=== PATIENT | female | born 1950 | race African-American/Black ===

== ENCOUNTER 2019-04-04 03:52 | Inpatient (IN) | payer MEDICARE, MEDICAID ==
[~2019-04-04] VITALS: Ht 170.2 cm; Wt 126.6 kg
[2019-04-04 12:00] VITALS: BP 163/80
--- NOTE | 2019-04-04 12:30 | NUR ---
NURSE NOTES: Received report from Shila IVY /[facility], pt transfered from [facility], awake, A/O x 4, calm and cooperative. VS stable, pain 10/10, Adam LE. wounds on adm, Adam heels, stage III left inner thigh, healed wound x 2 on left leg, pt seen by wound nurse, dressing on. IV on adm, right wrist hep lock. tolerating diet well, no N/V. call light within reach, bed in low position, bed alarm on, fall precaution maintained. will continue to monitor.
[2019-04-04] MEDS ORDERED: Ketorolac 30mg Inj IV PRN (13:00)
[2019-04-04] MEDS ORDERED: Nitroglycerin Subl 0.4mg tab SL PRN (13:00)
[2019-04-04] MEDS ORDERED: Albuterol/Ipratropium 3ml neb HHN PRN (13:00)
[2019-04-04] MEDS ORDERED: Miralax 17gm pkt ORAL PRN (13:00)
[2019-04-04] MEDS ORDERED: clonazePAM 0.5mg tab ORAL PRN (13:45)
[2019-04-04 13:59] LABS: ALANINE AMINOTRANSFERASE 9 U/L (12-78); ALBUMIN 2.9 G/DL (3.4-5.0); ALBUMIN/GLOBULIN RATIO 0.7 (1.0-2.7); ALKALINE PHOSPHATASE 69 U/L (46-116); ANION GAP 6 mmol/L (5-15); ASPARTATE AMINO TRANSFERASE 14 U/L (15-37); BILIRUBIN,TOTAL 0.5 MG/DL (0.2-1.0); BLOOD UREA NITROGEN 19 mg/dL (7-18); CALCIUM 9.1 MG/DL (8.5-10.1); CARBON DIOXIDE 29 MMOL/L (21-32); CHLORIDE 106 MMOL/L (98-107); CREATININE 1.2 MG/DL (0.55-1.30); SODIUM 141 MMOL/L (136-145)
--- NOTE | 2019-04-04 14:15 | Consultation ---
History of Present Illness General Date patient seen: Apr 04, 2019 Time patient seen: 12:45 Chief Complaint: B/L foot pain. Referring physician: Dr. Limon Present Illness HPI pt seen bedside for B/L Heel pain, L > R. Pt states she was transferred from [place]. Relates moderate pain to B/L L/E, unsure of how long she has been in pain. Denies any recent constitutional symptoms. Allergies: Coded Allergies: SULFA (SULFONAMIDE ANTIBIOTICS) (Verified Allergy, Mild, 04/04/19) Patient History Healthcare decision maker Resuscitation status Advanced Directive on File Physical Exam Last 24 Hour Vital Signs Date Time Temp Pulse Resp B/P (MAP) Pulse Ox O2 Delivery O2 Flow Rate FiO2 04/04/19 13:37 163/80 04/04/19 12:08 Room Air 04/04/19 12:00 97.7 86 18 163/80 (107) 100 Laboratory Tests Test 04/04/19 13:25 Sodium Level 141 MMOL/L (136-145) Potassium Level 4.0 MMOL/L (3.5-5.1) Chloride Level 106 MMOL/L (98-107) Carbon Dioxide Level 29 MMOL/L (21-32) Anion Gap 6 mmol/L (5-15) Blood Urea Nitrogen 19 mg/dL (7-18) H Creatinine 1.2 MG/DL (0.55-1.30) Estimat Glomerular Filtration Rate 54.2 mL/min (>60) Glucose Level 113 MG/DL (74-106) H Calcium Level 9.1 MG/DL (8.5-10.1) Total Bilirubin 0.5 MG/DL (0.2-1.0) Aspartate Amino Transf (AST/SGOT) 14 U/L (15-37) L Alanine Aminotransferase (ALT/SGPT) 9 U/L (12-78) L Alkaline Phosphatase 69 U/L (46-116) Total Protein 6.9 G/DL (6.4-8.2) Albumin 2.9 G/DL (3.4-5.0) L Globulin 4.0 g/dL Albumin/Globulin Ratio 0.7 (1.0-2.7) L Height (Feet): 5 Height (Inches): 7.00 Weight (Pounds): 280 Medications Current Medications Medications (Trade) Dose Ordered Sig/Isak Route PRN Reason Start Time Stop Time Status Last Admin Dose Admin Acetaminophen (Tylenol) 650 mg Q4H PRN ORAL Mild Pain (Pain Scale 1-3) 04/04/19 12:45 05/04/19 12:44 Acetaminophen (Tylenol) 650 mg Q4H PRN ORAL fever 04/04/19 13:00 05/04/19 12:59 Albuterol/ Ipratropium (Albuterol/ Ipratropium) 3 ml Q4H PRN HHN Shortness of Breath 04/04/19 13:00 04/09/19 12:59 Amlodipine Besylate (Norvasc) 10 mg DAILY ORAL 04/05/19 09:00 05/05/19 08:59 UNV Clonazepam (KlonoPIN) 0.5 mg DAILY PRN ORAL For Anxiety 04/04/19 13:45 04/11/19 13:44 UNV Clonidine HCl (Catapres Tab) 0.1 mg DAILY ORAL 04/05/19 09:00 05/05/19 08:59 UNV Clonidine HCl (Catapres Tab) 0.1 mg Q4H PRN ORAL sbp more than 160 04/04/19 13:00 05/04/19 12:59 04/04/19 13:37 Dextrose (Dextrose 50%) 25 ml Q30M PRN IV Hypoglycemia 04/04/19 13:00 05/04/19 12:59 Dextrose (Dextrose 50%) 50 ml Q30M PRN IV Hypoglycemia 04/04/19 13:00 05/04/19 12:59 Diphenhydramine HCl (Benadryl) 25 mg Q6H PRN ORAL Itching/Pruritis 04/04/19 12:45 05/04/19 12:44 Heparin Sodium (Porcine) (Heparin 5000 units/ml) 5,000 units EVERY 12 HOURS SUBQ 04/04/19 21:00 05/04/19 20:59 UNV Insulin Aspart (NovoLOG) BEFORE MEALS AND HS SUBQ 04/04/19 16:30 05/04/19 16:29 Ketorolac Tromethamine (Toradol 30mg) 30 mg Q6H PRN IV moderate pain 4-6 04/04/19 13:00 04/09/19 12:59 Losartan Potassium (Cozaar) 50 mg DAILY ORAL 04/05/19 09:00 05/05/19 08:59 UNV Metformin HCl (Glucophage) 500 mg TWICE A DAY ORAL 04/04/19 18:00 05/04/19 17:59 UNV Morphine Sulfate (Morphine Sulfate) 2 mg Q4H PRN IVP severe pain 7-10 04/04/19 13:00 04/11/19 12:59 Nitroglycerin (Ntg) 0.4 mg Q5M X 3 DOSES PRN SL Prn Chest Pain 04/04/19 13:00 05/04/19 12:59 Ondansetron HCl (Zofran) 4 mg Q6H PRN IVP Nausea & Vomiting 04/04/19 13:00 05/04/19 12:59 Oxycodone/ Acetaminophen (Percocet 10/325) 1 tab Q4H PRN ORAL pain 4-7 04/04/19 13:00 04/11/19 12:59 04/04/19 13:37 Pantoprazole (Protonix) 40 mg DAILY ORAL 04/05/19 09:00 05/05/19 08:59 Piperacillin Sod/ Tazobactam Sod 3.375 gm/Sodium Chloride 110 ml @ 27.5 mls/hr EVERY 8 HOURS IVPB 04/04/19 14:00 04/09/19 13:59 UNV Polyethylene Glycol (Miralax) 17 gm HSPRN PRN ORAL Constipation 04/04/19 13:00 05/04/19 12:59 Sodium Chloride 1,000 ml @ 100 mls/hr Q10H IVLG 04/04/19 12:47 05/04/19 12:46 04/04/19 12:47 Temazepam (Restoril) 15 mg HSPRN PRN ORAL Insomnia 04/04/19 13:00 04/11/19 12:59 Vancomycin HCl (Vanco rx to dose) 1 ea DAILY PRN MISC Per rx protocol 04/04/19 13:00 05/04/19 12:59 UNV Objective Narrative B/L Focused Exam: Derm: Right foot: Posterior plantar heel DTI is noted. No other open wounds are noted. (-) purulent drainage. (+) edema and erythema Left foot: Posterior plantar heel DTI is noted. No other open wounds are noted. (-) purulent drainage. (+) edema and erythema Vasc: +1/4 DP/PT pulses, HOSPITAL CODER < 3 seconds Neuro: SILT intact MSK: ROM/MS deferred secondary to pain. Assessment/Plan Assessment/Plan: : B/L DTI heel. Obesity B/L edema P: - Pt seen and evaluated. - Discuss findings with patient. - Rec off-loading measures to B/L L/E with pravalon boot and ABD pad at heel. - Betadine to B/L L/E heels daily. - Order MRI to B/L L/E R/O Deep abscess or ST infection - Cont Tx per specialists. - Podiatry will cont to monitor. Ralph Saenz DPM Apr 04, 2019 14:15
--- NOTE | 2019-04-04 14:20 | Consultation ---
History of Present Illness General Referring physician: Dr. Limon Present Illness Allergies: Coded Allergies: SULFA (SULFONAMIDE ANTIBIOTICS) (Verified Allergy, Mild, 04/04/19) Patient History Healthcare decision maker Resuscitation status Advanced Directive on File Physical Exam Last 24 Hour Vital Signs Date Time Temp Pulse Resp B/P (MAP) Pulse Ox O2 Delivery O2 Flow Rate FiO2 04/04/19 13:37 163/80 04/04/19 12:08 Room Air 04/04/19 12:00 97.7 86 18 163/80 (107) 100 Laboratory Tests Test 04/04/19 13:25 Sodium Level 141 MMOL/L (136-145) Potassium Level 4.0 MMOL/L (3.5-5.1) Chloride Level 106 MMOL/L (98-107) Carbon Dioxide Level 29 MMOL/L (21-32) Anion Gap 6 mmol/L (5-15) Blood Urea Nitrogen 19 mg/dL (7-18) H Creatinine 1.2 MG/DL (0.55-1.30) Estimat Glomerular Filtration Rate 54.2 mL/min (>60) Glucose Level 113 MG/DL (74-106) H Calcium Level 9.1 MG/DL (8.5-10.1) Total Bilirubin 0.5 MG/DL (0.2-1.0) Aspartate Amino Transf (AST/SGOT) 14 U/L (15-37) L Alanine Aminotransferase (ALT/SGPT) 9 U/L (12-78) L Alkaline Phosphatase 69 U/L (46-116) Total Protein 6.9 G/DL (6.4-8.2) Albumin 2.9 G/DL (3.4-5.0) L Globulin 4.0 g/dL Albumin/Globulin Ratio 0.7 (1.0-2.7) L Height (Feet): 5 Height (Inches): 7.00 Weight (Pounds): 280 Medications Current Medications Medications (Trade) Dose Ordered Sig/Isak Route PRN Reason Start Time Stop Time Status Last Admin Dose Admin Acetaminophen (Tylenol) 650 mg Q4H PRN ORAL Mild Pain (Pain Scale 1-3) 04/04/19 12:45 05/04/19 12:44 Acetaminophen (Tylenol) 650 mg Q4H PRN ORAL fever 04/04/19 13:00 05/04/19 12:59 Albuterol/ Ipratropium (Albuterol/ Ipratropium) 3 ml Q4H PRN HHN Shortness of Breath 04/04/19 13:00 04/09/19 12:59 Amlodipine Besylate (Norvasc) 10 mg DAILY ORAL 04/05/19 09:00 05/05/19 08:59 Clonazepam (KlonoPIN) 0.5 mg DAILYPRN PRN ORAL For Anxiety 04/04/19 13:45 04/11/19 13:44 Clonidine HCl (Catapres Tab) 0.1 mg Q4H PRN ORAL sbp more than 160 04/04/19 13:00 05/04/19 12:59 04/04/19 13:37 Clonidine HCl (Catapres Tab) 0.1 mg QHS ORAL 04/05/19 21:00 05/05/19 20:59 Dextrose (Dextrose 50%) 25 ml Q30M PRN IV Hypoglycemia 04/04/19 13:00 05/04/19 12:59 Dextrose (Dextrose 50%) 50 ml Q30M PRN IV Hypoglycemia 04/04/19 13:00 05/04/19 12:59 Diphenhydramine HCl (Benadryl) 25 mg Q6H PRN ORAL Itching/Pruritis 04/04/19 12:45 05/04/19 12:44 Heparin Sodium (Porcine) (Heparin 5000 units/ml) 5,000 units EVERY 12 HOURS SUBQ 04/04/19 21:00 05/04/19 20:59 UNV Insulin Aspart (NovoLOG) BEFORE MEALS AND HS SUBQ 04/04/19 16:30 05/04/19 16:29 Ketorolac Tromethamine (Toradol 30mg) 30 mg Q6H PRN IV moderate pain 4-6 04/04/19 13:00 04/09/19 12:59 Losartan Potassium (Cozaar) 50 mg DAILY ORAL 04/05/19 09:00 05/05/19 08:59 Metformin HCl (Glucophage) 500 mg TWICE A DAY ORAL 04/04/19 18:00 05/04/19 17:59 Morphine Sulfate (Morphine Sulfate) 2 mg Q4H PRN IVP severe pain 7-10 04/04/19 13:00 04/11/19 12:59 Nitroglycerin (Ntg) 0.4 mg Q5M X 3 DOSES PRN SL Prn Chest Pain 04/04/19 13:00 05/04/19 12:59 Ondansetron HCl (Zofran) 4 mg Q6H PRN IVP Nausea & Vomiting 04/04/19 13:00 05/04/19 12:59 Oxycodone/ Acetaminophen (Percocet 10/325) 1 tab Q4H PRN ORAL pain 4-7 04/04/19 13:00 04/11/19 12:59 04/04/19 13:37 Pantoprazole (Protonix) 40 mg DAILY ORAL 04/05/19 09:00 05/05/19 08:59 Piperacillin Sod/ Tazobactam Sod 3.375 gm/Sodium Chloride 110 ml @ 27.5 mls/hr EVERY 8 HOURS IVPB 04/04/19 15:00 04/09/19 14:59 Polyethylene Glycol (Miralax) 17 gm HSPRN PRN ORAL Constipation 04/04/19 13:00 05/04/19 12:59 Sodium Chloride 1,000 ml @ 100 mls/hr Q10H IVLG 04/04/19 12:47 05/04/19 12:46 04/04/19 12:47 Temazepam (Restoril) 15 mg HSPRN PRN ORAL Insomnia 04/04/19 13:00 04/11/19 12:59 Vancomycin HCl (Vanco rx to dose) 1 ea DAILY PRN MISC Per rx protocol 04/04/19 13:00 05/04/19 12:59 Vancomycin HCl 1.75 gm/Dextrose 550 ml @ 275 mls/hr ONCE ONCE IVPB 04/04/19 19:00 04/04/19 20:59 Assessment/Plan Problem List: (1) Diabetic foot ulcer ICD Codes: E11.621 - Type 2 diabetes mellitus with foot ulcer; L97.509 - Non- pressure chronic ulcer of other part of unspecified foot with unspecified severity SNOMED: 66874839, 397363494 (2) Elephantiasis ICD Codes: I89.0 - Lymphedema, not elsewhere classified SNOMED: 490874920 (3) Severe anemia ICD Codes: D64.9 - Anemia, unspecified SNOMED: 542134681 (4) Diabetes mellitus ICD Codes: E11.9 - Type 2 diabetes mellitus without complications SNOMED: 40974680 (5) Morbid obesity with BMI of 40.0-44.9, adult ICD Codes: E66.01 - Morbid (severe) obesity due to excess calories; Z68.41 - Body mass index (BMI) 40.0-44.9, adult SNOMED: 133580699, 198431019, [id number] Mine Olguin MD Apr 04, 2019 14:20
--- NOTE | 2019-04-04 15:05 | Diagnostic Imaging Report ---
Indication: Cough Comparison: None A single view chest radiograph was obtained. Findings: No definite infiltrate or pulmonary vascular congestion identified. The heart is enlarged. The aorta is mildly enlarged consistent with atherosclerotic vascular disease. The bones are osteopenic. Impression: No acute disease
--- NOTE | 2019-04-04 15:06 | Diagnostic Imaging Report ---
Indication: Foot pain Comparison: None Findings: 2 views of the left foot were obtained. No fracture or malalignment appreciated. There is soft tissue swelling present. Degenerative changes of the ankle and portions of the midfoot demonstrated. Joint space narrowing and osteophytes. Prominent plantar calcaneal spur noted. IMPRESSION: Soft tissue swelling. No acute injury identified. Osteoarthritis
--- NOTE | 2019-04-04 15:07 | Diagnostic Imaging Report ---
Indication: Foot Pain Comparison: None Findings: 3 views of the right foot were obtained. No acute fracture is identified. The bones are osteopenic. Osteoarthritis demonstrated within the ankle and hindfoot prominent plantar calcaneal spur noted. Generalized soft tissue swelling is present nonspecific in nature. IMPRESSION: No acute fracture
--- NOTE | 2019-04-04 16:01 | NUR ---
MRI done only Left foot, pt refused right foot due to pain, will try tomorrow per pt request.
[2019-04-04] MEDS: Piperacillin/Tazobactam 3.375 GM in NS 110 ML IVPB SCH ×2 (16:20→22:00)
[2019-04-04 16:30] VITALS: BP 159/72
[2019-04-04] MEDS: NovoLOG Insulin Flexpen SUBQ SCH ×2 (16:44→20:33)
--- NOTE | 2019-04-04 17:00 | History and Physical Report ---
DATE OF ADMISSION: 04/04/2019 CHIEF COMPLAINT: The patient is a 68-year-old female who presents with a chief complaint of bilateral foot pain. HISTORY OF PRESENT ILLNESS: Began few days prior to admission, the patient presented to [facility] emergency room. The patient was complaining of pain in both feet and the legs. The patient has a history of diabetes. The patient was discharged home. The patient returned to [facility] complaining of bilateral heel pain and leg pain. The patient was transferred to [facility] for insurance purposes. The patient was admitted with chief complaint of left diabetic foot ulcer. REVIEW OF SYSTEMS: CONSTITUTIONAL: The patient denies weight loss or weight gain. The patient denies fevers or chills. HEENT: The patient denies ear or throat pain. The patient denies headache. CARDIOVASCULAR: The patient denies palpitations or chest pain. CHEST: The patient denies wheeze or shortness of breath. ABDOMEN: The patient denies nausea, vomiting, diarrhea, or constipation. GENITOURINARY: The patient denies dysuria or increased frequency of urination. NEUROMUSCULAR: The patient complains of bilateral heel pain as above. The patient denies seizures or generalized weakness. PAST MEDICAL HISTORY: Significant for: 1. Type 2 diabetes. 2. Hypertension. PAST SURGICAL HISTORY: The patient denies. CURRENT MEDICATIONS: The patient denies. ALLERGIES: Sulfa. SOCIAL HISTORY: The patient is a and lives alone. The patient denies tobacco or alcohol use. PHYSICAL EXAMINATION: VITAL SIGNS: Temperature 97.9 degrees Fahrenheit, pulse 94, blood pressure 146/58, respirations 16. GENERAL: The patient is well-developed and well-nourished obese female, in no apparent distress. HEENT: Eyes, pupils are equal and responsive to light and accommodation. Extraocular movements are intact. NECK: Supple without lymphadenopathy. CHEST: Lungs are clear to auscultation bilaterally without wheezes or rales. CARDIOVASCULAR: Regular rate. S1 and S2 normal without murmurs, rubs, or gallops. ABDOMEN: Soft, nontender, nondistended. Positive bowel sounds. No evidence of hepatosplenomegaly. Currently, no rebound or guarding noted. EXTREMITIES: Negative for clubbing, cyanosis, or edema. RECTAL/GENITAL: Not performed. NEUROLOGIC: Cranial nerves II through XII are grossly intact without focal deficits. Motor strength is 5/5 bilaterally. Deep tendon reflexes are 2+ plantar. LABORATORY STUDIES: WBC 12.5, hemoglobin 11.6, hematocrit , platelets 332,000. Sodium 141, potassium 4.2, chloride 102, CO2 25, BUN 17, creatinine , glucose 139. Troponin 0.02. BNP elevated at 401. ASSESSMENT: This is a 68-year-old female. 1. Diabetic left heel ulcer. 2. Diabetes type 2. 3. Hypertension. TREATMENT: 1. Left diabetic foot ulcer. A Podiatry consultation has been obtained with Dr. Hoyt. We will follow recommendations of Podiatry. An x-ray of the left foot is pending to rule out acute osteomyelitis. 2. Diabetes type 2. NovoLog sliding scale has been instituted. 3. Hypertension. The patient has been started empirically on lisinopril. Milan Limon M.D. DR: Car JOB#: [id number] CC:
[2019-04-04 17:47] LABS: BASOPHILS % (AUTO) 0.9 % (0.0-2.0); EOSINOPHILS % (AUTO) 2.4 % (0.0-3.0); HEMATOCRIT 28.2 % (37.0-47.0); HEMOGLOBIN 9.2 G/DL (12.0-16.0); LYMPHOCYTES % (AUTO) 17.6 % (20.0-45.0); MEAN CORPUSCULAR VOLUME 79 FL (80-99); MONOCYTES % (AUTO) 3.5 % (1.0-10.0); NEUTROPHILS % (AUTO) 75.7 % (45.0-75.0); PLATELET COUNT 224 K/UL (150-450); RED BLOOD COUNT 3.58 M/UL (4.20-5.40); RED CELL DISTRIBUTION WIDTH 12.1 % (11.6-14.8); WHITE BLOOD COUNT 9.5 K/UL (4.8-10.8)
[2019-04-04] MEDS: metFORMIN 500mg tab ORAL SCH (17:55)
[2019-04-04 18:05] LABS: ALANINE AMINOTRANSFERASE 14 U/L (12-78); ALBUMIN 2.8 G/DL (3.4-5.0); ALBUMIN/GLOBULIN RATIO 0.8 (1.0-2.7); ALKALINE PHOSPHATASE 68 U/L (46-116); ANION GAP 6 mmol/L (5-15); ASPARTATE AMINO TRANSFERASE 13 U/L (15-37); BILIRUBIN,TOTAL 0.4 MG/DL (0.2-1.0); BLOOD UREA NITROGEN 19 mg/dL (7-18); CALCIUM 8.9 MG/DL (8.5-10.1); CARBON DIOXIDE 32 MMOL/L (21-32); CHLORIDE 107 MMOL/L (98-107); CREATININE 1.3 MG/DL (0.55-1.30); SODIUM 144 MMOL/L (136-145)
[2019-04-04] MEDS ORDERED: Vancomycin 1750mg/D5W 550ml IVPB ONE ×2 (19:00)
--- NOTE | 2019-04-04 19:39 | NUR ---
NURSE NOTES: Received patient in bed. A/O x4. Patient has some leg pain. Pain medication offered and states she will request a little later. IV site in the right wrist noted running zosyn, no swelling or redness. Respirations even and unlabored.
[2019-04-04 20:00] VITALS: BP 164/87
[2019-04-04] MEDS: Heparin 5000 units/ml inj SUBQ SCH (20:29)
[2019-04-04] MEDS ORDERED: Heparin 5000 units/ml inj SUBQ SCH (21:00)
--- NOTE | 2019-04-04 22:00 | NUR ---
NURSE NOTES: Patient voided in the commode but also had a bowel movement. Unable to collect clean catch urine. Will attempt another time.
[2019-04-05] VITALS: BP 151/74
[2019-04-05 04:00] VITALS: BP 154/82
[2019-04-05] MEDS: Piperacillin/Tazobactam 3.375 GM in NS 110 ML IVPB SCH ×3 (06:00→22:00)
[2019-04-05] MEDS: NovoLOG Insulin Flexpen SUBQ SCH ×5 (06:20→21:00)
--- NOTE | 2019-04-05 06:20 | NUR ---
NURSE NOTES: Multiple IVs attempted during this shift without success. IV finder used. Dr. Sue ordered PIV of the legs. If unable to obtain PIV then insert PICC line.
[2019-04-05] MEDS ORDERED: Lidocaine 1% Plain 30 ml INJ SCH (07:00)
[2019-04-05] MEDS ORDERED: Heparin1,000 units/500ml Premix(Conc:2 units/ml) IV SCH (07:00)
[2019-04-05] MEDS: Vancomycin 1gm/D5W 275ml IVPB SCH ×4 (07:00→19:00)
--- NOTE | 2019-04-05 07:17 | NUR ---
HAND-OFF: Report given to Rubio IVY.
[2019-04-05 07:21] LABS: BASOPHILS % (AUTO) 1.1 % (0.0-2.0); EOSINOPHILS % (AUTO) 4.1 % (0.0-3.0); HEMATOCRIT 28.3 % (37.0-47.0); LYMPHOCYTES % (AUTO) 25.9 % (20.0-45.0); MEAN CORPUSCULAR VOLUME 81 FL (80-99); MONOCYTES % (AUTO) 5.9 % (1.0-10.0); NEUTROPHILS % (AUTO) 63.1 % (45.0-75.0); PLATELET COUNT 229 K/UL (150-450); RED BLOOD COUNT 3.51 M/UL (4.20-5.40); RED CELL DISTRIBUTION WIDTH 13.6 % (11.6-14.8); WHITE BLOOD COUNT 8.6 K/UL (4.8-10.8)
[2019-04-05 07:41] LABS: ALANINE AMINOTRANSFERASE 10 U/L (12-78); ALBUMIN 2.6 G/DL (3.4-5.0); ALBUMIN/GLOBULIN RATIO 0.7 (1.0-2.7); ALKALINE PHOSPHATASE 56 U/L (46-116); ANION GAP 7 mmol/L (5-15); ASPARTATE AMINO TRANSFERASE 12 U/L (15-37); BILIRUBIN,TOTAL 0.3 MG/DL (0.2-1.0); BLOOD UREA NITROGEN 20 mg/dL (7-18); CALCIUM 8.5 MG/DL (8.5-10.1); CARBON DIOXIDE 28 MMOL/L (21-32); CHLORIDE 110 MMOL/L (98-107); CHOLESTEROL 134 MG/DL (< 200); CREATININE 1.2 MG/DL (0.55-1.30); HDL CHOLESTEROL 42 MG/DL (40-60); POTASSIUM 3.9 MMOL/L (3.5-5.1); SODIUM 144 MMOL/L (136-145); TRIGLYCERIDES 58 MG/DL (30-150)
--- NOTE | 2019-04-05 07:45 | NUR ---
NURSE NOTES: Received patient on bed, awake. No IV site, MD aware. Bed in low and locked position, call light in reach. No signs of respiratory distress, patient received pain medication prior to start of shift. Room board updated, will continue to monitor.
[2019-04-05 08:00] VITALS: BP 153/82
[2019-04-05] MEDS: metFORMIN 500mg tab ORAL SCH ×2 (08:31→17:48)
[2019-04-05] MEDS: Losartan 50mg tab ORAL SCH (08:31)
[2019-04-05] MEDS: Heparin 5000 units/ml inj SUBQ SCH ×2 (08:36→20:20)
--- NOTE | 2019-04-05 08:43 | Diagnostic Imaging Report ---
Indication: Left heel wound Technique: Sagittal, coronal, and axial T1 FSE and FSE STIR images of the left hindfoot were obtained Comparison: Plain radiograph of the foot of earlier the same day Findings: A marker lombardi the location of heel ulcer. This demonstrates very slight skin irregularity There is very slight increased STIR signal at the periphery of the calcaneal tuberosity but no definite T1 signal abnormality is demonstrated. There is some 8 increased marrow signal on the STIR images at the lateral peripherally of the talus, again without evidence of abnormal T1 signal. No other marrow signal abnormality is demonstrated.. There is considerable edema of the subcutaneous fat, primarily of the distal leg,, the dorsal ankle and to a lesser extent the heel region. No discrete fluid collection to suggest abscess demonstrated. The large tendons appear intact. Impression: Superficial skin erosion in the region of MRI marker responding to stated clinical history of heel ulcer Faint slightly increased STIR signal in the calcaneal tuberosity, without associated T1 abnormality. Most likely reactive, although very early osteomyelitis cannot be completely ruled out. Faint slightly increased her signal in the talus, likewise without associated T1 abnormality. Most likely reactive, but early osteomyelitis cannot be completely ruled out Extensive edema of the subcutaneous fat, as described. Given stated clinical history, may be on the basis of cellulitis, but could also indicate edema of vasogenic/hemodynamic origin. Correlate with clinical findings
--- NOTE | 2019-04-05 11:10 | NUR ---
PT EVALUATION NOTE Patient seen for initial evaluation, see complete evaluation for details. Patient presents with limited mobility due to BLE pain and generalized weakness. Patient requires min assist for rolling, declined to sit up at EOB due to pain and unable to attempt transfers or ambulation. Patient will benefit from skilled inpatient PT intervention to address strength, balance and safety to improve level of functional mobility. Recommend discharge to ARU/SNF for further rehab for strengthening and mobility training once medially cleared by MD. Patient has 4 wheeled walker, further DME needs to be determined based on patient's progress. Addendum: 04/05/19 at 1155 by RAFIQ IRWIN PT Amended: Links added.
[2019-04-05 12:00] VITALS: BP 131/61
--- NOTE | 2019-04-05 13:46 | NUR ---
NURSE NOTES: Patient back on floor from procedure.
--- NOTE | 2019-04-05 13:52 | NUR ---
MRI RIGHT HEEL COMPLETED.
--- NOTE | 2019-04-05 13:58 | Pulmonology Progress Note ---
Assessment/Plan Problems: (1) Diabetic foot ulcer (2) Elephantiasis (3) Severe anemia (4) Diabetes mellitus (5) Morbid obesity with BMI of 40.0-44.9, adult (6) Cellulitis Assessment/Plan f/u cultures f/u MRI results iv abx anemia w/u sliding scale diabetic diet Subjective Constitutional: Reports: no symptoms HEENT: Repors: no symptoms Allergies: Coded Allergies: SULFA (SULFONAMIDE ANTIBIOTICS) (Verified Allergy, Mild, 04/04/19) Objective Last 24 Hour Vital Signs Date Time Temp Pulse Resp B/P (MAP) Pulse Ox O2 Delivery O2 Flow Rate FiO2 04/05/19 12:00 97.5 78 16 131/61 (84) 98 04/05/19 09:00 Room Air 04/05/19 08:32 99 153/82 04/05/19 08:31 153/82 04/05/19 08:00 96.6 99 21 153/82 (105) 97 04/05/19 04:00 97.7 83 17 154/82 (106) 98 04/05/19 00:00 98.1 87 17 151/74 (99) 98 04/04/19 21:00 Room Air 04/04/19 20:00 98.4 96 18 164/87 (112) 97 04/04/19 16:30 97.9 82 20 159/72 (101) 98 04/04/19 14:07 97.7 Intake and Output 04/04/19 04/05/19 18:59 06:59 Intake Total 240 ml 200 ml Output Total 1 ml Balance 240 ml 199 ml Intake Oral 240 ml 200 ml Output Stool Total 1 ml # Voids 1 General Appearance: WD/WN HEENT: normocephalic, anicteric Respiratory/Chest: chest wall non-tender, lungs clear Breasts: no masses Cardiovascular: normal rate Abdomen: normal bowel sounds, non distended Genitourinary: normal external genitalia Skin: no rash Laboratory Tests 04/04/19 17:10: White Blood Count 9.5, Red Blood Count 3.58L, Hemoglobin 9.2L, Hematocrit 28.2L , Mean Corpuscular Volume 79L, Mean Corpuscular Hemoglobin 25.8L, Mean Corpuscular Hemoglobin Concent 32.7, Red Cell Distribution Width 12.1, Platelet Count 224, Mean Platelet Volume 6.6, Neutrophils (%) (Auto) 75.7H, Lymphocytes ( %) (Auto) 17.6L, Monocytes (%) (Auto) 3.5, Eosinophils (%) (Auto) 2.4, Basophils (%) (Auto) 0.9, Sodium Level 144, Potassium Level 4.0, Chloride Level 107, Carbon Dioxide Level 32, Anion Gap 6, Blood Urea Nitrogen 19H, Creatinine 1.3, Estimat Glomerular Filtration Rate 49.3, Glucose Level 160H, Calcium Level 8.9, Total Bilirubin 0.4, Aspartate Amino Transf (AST/SGOT) 13L, Alanine Aminotransferase (ALT/SGPT) 14, Alkaline Phosphatase 68, Total Protein 6.4, Albumin 2.8L, Globulin 3.6, Albumin/Globulin Ratio 0.8L 04/05/19 07:00: White Blood Count 8.6, Red Blood Count 3.51L, Hemoglobin 9.0L, Hematocrit 28.3L , Mean Corpuscular Volume 81, Mean Corpuscular Hemoglobin 25.5L, Mean Corpuscular Hemoglobin Concent 31.7L, Red Cell Distribution Width 13.6, Platelet Count 229, Mean Platelet Volume 6.6, Neutrophils (%) (Auto) 63.1, Lymphocytes (%) (Auto) 25.9, Monocytes (%) (Auto) 5.9, Eosinophils (%) (Auto) 4.1H, Basophils (%) (Auto) 1.1, Sodium Level 144, Potassium Level 3.9, Chloride Level 110H, Carbon Dioxide Level 28, Anion Gap 7, Blood Urea Nitrogen 20H, Creatinine 1.2, Estimat Glomerular Filtration Rate 54.2, Glucose Level 92, Calcium Level 8.5, Total Bilirubin 0.3, Aspartate Amino Transf (AST/SGOT) 12L, Alanine Aminotransferase (ALT/SGPT) 10L, Alkaline Phosphatase 56, Total Protein 6.3L, Albumin 2.6L, Globulin 3.7, Albumin/Globulin Ratio 0.7L, Hemoglobin A1c 7.2H, Triglycerides Level 58, Cholesterol Level 134, LDL Cholesterol 74, HDL Cholesterol 42, Cholesterol/HDL Ratio 3.2L, Thyroid Stimulating Hormone (TSH) 0.697 Current Medications Medications (Trade) Dose Ordered Sig/Isak Route PRN Reason Start Time Stop Time Status Last Admin Dose Admin Acetaminophen (Tylenol) 650 mg Q4H PRN ORAL Mild Pain (Pain Scale 1-3) 04/04/19 12:45 05/04/19 12:44 Acetaminophen (Tylenol) 650 mg Q4H PRN ORAL fever 04/04/19 13:00 05/04/19 12:59 Albuterol/ Ipratropium (Albuterol/ Ipratropium) 3 ml Q4H PRN HHN Shortness of Breath 04/04/19 13:00 04/09/19 12:59 Amlodipine Besylate (Norvasc) 10 mg DAILY ORAL 04/05/19 09:00 05/05/19 08:59 04/05/19 08:32 Chlorhexidine Gluconate (Autumn-Hex 2%) 1 applic DAILY@2000 TOPIC 04/05/19 20:00 05/05/19 19:59 Clonazepam (KlonoPIN) 0.5 mg DAILYPRN PRN ORAL For Anxiety 04/04/19 13:45 04/11/19 13:44 Clonidine HCl (Catapres Tab) 0.1 mg Q4H PRN ORAL sbp more than 160 04/04/19 13:00 05/04/19 12:59 04/04/19 13:37 Clonidine HCl (Catapres Tab) 0.1 mg QHS ORAL 04/05/19 21:00 05/05/19 20:59 Dextrose (Dextrose 50%) 25 ml Q30M PRN IV Hypoglycemia 04/04/19 13:00 05/04/19 12:59 Dextrose (Dextrose 50%) 50 ml Q30M PRN IV Hypoglycemia 04/04/19 13:00 05/04/19 12:59 Diphenhydramine HCl (Benadryl) 25 mg Q6H PRN ORAL Itching/Pruritis 04/04/19 12:45 05/04/19 12:44 04/05/19 09:51 Heparin Sodium (Porcine) (Heparin 5000 units/ml) 5,000 units EVERY 12 HOURS SUBQ 04/04/19 21:00 05/04/19 20:59 04/05/19 08:36 Insulin Aspart (NovoLOG) BEFORE MEALS AND HS SUBQ 04/04/19 16:30 05/04/19 16:29 04/04/19 20:33 Ketorolac Tromethamine (Toradol 30mg) 30 mg Q6H PRN IV moderate pain 4-6 04/04/19 13:00 04/09/19 12:59 Losartan Potassium (Cozaar) 50 mg DAILY ORAL 04/05/19 09:00 05/05/19 08:59 04/05/19 08:31 Metformin HCl (Glucophage) 500 mg TWICE A DAY ORAL 04/04/19 18:00 05/04/19 17:59 04/05/19 08:31 Morphine Sulfate (Morphine Sulfate) 2 mg Q4H PRN IVP severe pain 7-10 04/04/19 13:00 04/11/19 12:59 Nitroglycerin (Ntg) 0.4 mg Q5M X 3 DOSES PRN SL Prn Chest Pain 04/04/19 13:00 05/04/19 12:59 Ondansetron HCl (Zofran) 4 mg Q6H PRN IVP Nausea & Vomiting 04/04/19 13:00 05/04/19 12:59 Oxycodone/ Acetaminophen (Percocet 10/325) 1 tab Q4H PRN ORAL pain 4-7 04/04/19 13:00 04/11/19 12:59 04/05/19 06:21 Pantoprazole (Protonix) 40 mg DAILY ORAL 04/05/19 09:00 05/05/19 08:59 04/05/19 08:31 Piperacillin Sod/ Tazobactam Sod 3.375 gm/Sodium Chloride 110 ml @ 27.5 mls/hr EVERY 8 HOURS IVPB 04/04/19 15:00 04/09/19 14:59 04/04/19 16:20 Polyethylene Glycol (Miralax) 17 gm HSPRN PRN ORAL Constipation 04/04/19 13:00 05/04/19 12:59 Sodium Chloride 1,000 ml @ 100 mls/hr Q10H IVLG 04/04/19 12:47 05/04/19 12:46 04/04/19 12:47 Temazepam (Restoril) 15 mg HSPRN PRN ORAL Insomnia 04/04/19 13:00 04/11/19 12:59 Vancomycin HCl (Vanco rx to dose) 1 ea DAILY PRN MISC Per rx protocol 04/04/19 13:00 05/04/19 12:59 Vancomycin HCl 1 gm/Dextrose 275 ml @ 183.708 mls/hr Q12H IVPB 04/05/19 07:00 04/10/19 06:59 Mine Olguin MD Apr 05, 2019 13:57
[2019-04-05 16:00] VITALS: BP 145/65
--- NOTE | 2019-04-05 17:55 | Diagnostic Imaging Report ---
Indication: Bruise-like wound on lateral heel Technique: Sagittal, coronal, and axial T1-weighted FSE and FSE STIR images obtained of the hindfoot Comparison: No comparison MRI. Reference made to plain radiograph of 04/04/2017 Findings: MRI marker denotes location of wound lateral to the lateral malleolus. No marrow signal abnormality demonstrated.. There is extensive edema of the subcutaneous fat of the distal leg which is circumferential. No discrete fluid collection to suggest abscess demonstrated. Impression: No evidence of osteomyelitis demonstrated Diffuse edema of the subcutaneous fat, may indicate cellulitis or edema due to hemodynamic causes. No focal fluid collection to suggest abscess
--- NOTE | 2019-04-05 18:15 | Internal Med Progress Note ---
Subjective Date of Service: Apr 05, 2019 Physician Name Milan Limon Attending Physician Clarence Sue MD Current Medications Medications (Trade) Dose Ordered Sig/Isak Route PRN Reason Start Time Stop Time Status Last Admin Dose Admin Acetaminophen (Tylenol) 650 mg Q4H PRN ORAL Mild Pain (Pain Scale 1-3) 04/04/19 12:45 05/04/19 12:44 Acetaminophen (Tylenol) 650 mg Q4H PRN ORAL fever 04/04/19 13:00 05/04/19 12:59 Albuterol/ Ipratropium (Albuterol/ Ipratropium) 3 ml Q4H PRN HHN Shortness of Breath 04/04/19 13:00 04/09/19 12:59 Amlodipine Besylate (Norvasc) 10 mg DAILY ORAL 04/05/19 09:00 05/05/19 08:59 04/05/19 08:32 Chlorhexidine Gluconate (Autumn-Hex 2%) 1 applic DAILY@2000 TOPIC 04/05/19 20:00 05/05/19 19:59 Clonazepam (KlonoPIN) 0.5 mg DAILYPRN PRN ORAL For Anxiety 04/04/19 13:45 04/11/19 13:44 Clonidine HCl (Catapres Tab) 0.1 mg Q4H PRN ORAL sbp more than 160 04/04/19 13:00 05/04/19 12:59 04/04/19 13:37 Clonidine HCl (Catapres Tab) 0.1 mg QHS ORAL 04/05/19 21:00 05/05/19 20:59 Dextrose (Dextrose 50%) 25 ml Q30M PRN IV Hypoglycemia 04/04/19 13:00 05/04/19 12:59 Dextrose (Dextrose 50%) 50 ml Q30M PRN IV Hypoglycemia 04/04/19 13:00 05/04/19 12:59 Diphenhydramine HCl (Benadryl) 25 mg Q6H PRN ORAL Itching/Pruritis 04/04/19 12:45 05/04/19 12:44 04/05/19 09:51 Heparin Sodium (Porcine) (Heparin 5000 units/ml) 5,000 units EVERY 12 HOURS SUBQ 04/04/19 21:00 05/04/19 20:59 04/05/19 08:36 Insulin Aspart (NovoLOG) BEFORE MEALS AND HS SUBQ 04/04/19 16:30 05/04/19 16:29 04/04/19 20:33 Ketorolac Tromethamine (Toradol 30mg) 30 mg Q6H PRN IV moderate pain 4-6 04/04/19 13:00 04/09/19 12:59 Losartan Potassium (Cozaar) 50 mg DAILY ORAL 04/05/19 09:00 05/05/19 08:59 04/05/19 08:31 Metformin HCl (Glucophage) 500 mg TWICE A DAY ORAL 04/04/19 18:00 05/04/19 17:59 04/05/19 17:48 Morphine Sulfate (Morphine Sulfate) 2 mg Q4H PRN IVP severe pain 7-10 04/04/19 13:00 04/11/19 12:59 Nitroglycerin (Ntg) 0.4 mg Q5M X 3 DOSES PRN SL Prn Chest Pain 04/04/19 13:00 05/04/19 12:59 Ondansetron HCl (Zofran) 4 mg Q6H PRN IVP Nausea & Vomiting 04/04/19 13:00 05/04/19 12:59 Oxycodone/ Acetaminophen (Percocet 10/325) 1 tab Q4H PRN ORAL pain 4-7 04/04/19 13:00 04/11/19 12:59 04/05/19 15:32 Pantoprazole (Protonix) 40 mg DAILY ORAL 04/05/19 09:00 05/05/19 08:59 04/05/19 08:31 Piperacillin Sod/ Tazobactam Sod 3.375 gm/Sodium Chloride 110 ml @ 27.5 mls/hr EVERY 8 HOURS IVPB 04/04/19 15:00 04/09/19 14:59 04/04/19 16:20 Polyethylene Glycol (Miralax) 17 gm HSPRN PRN ORAL Constipation 04/04/19 13:00 05/04/19 12:59 Sodium Chloride 1,000 ml @ 100 mls/hr Q10H IVLG 04/04/19 12:47 05/04/19 12:46 04/04/19 12:47 Temazepam (Restoril) 15 mg HSPRN PRN ORAL Insomnia 04/04/19 13:00 04/11/19 12:59 Vancomycin HCl (Vanco rx to dose) 1 ea DAILY PRN MISC Per rx protocol 04/04/19 13:00 05/04/19 12:59 Vancomycin HCl 1 gm/Dextrose 275 ml @ 183.708 mls/hr Q12H IVPB 04/05/19 07:00 04/10/19 06:59 Allergies: Coded Allergies: SULFA (SULFONAMIDE ANTIBIOTICS) (Verified Allergy, Mild, 04/04/19) ROS Limited/Unobtainable: No Constitutional: Reports: no symptoms HEENT: Reports: no symptoms Cardiovascular: Reports: no symptoms Respiratory: Reports: no symptoms Gastrointestinal/Abdominal: Reports: no symptoms Genitourinary: Reports: no symptoms Neurologic/Psychiatric: Reports: no symptoms Subjective 68 YO F admitted with bilateral heel pain. Cover for Int Ivan-Dr Sue Objective Last Vital Signs Date Time Temp Pulse Resp B/P (MAP) Pulse Ox O2 Delivery O2 Flow Rate FiO2 04/05/19 16:00 97.8 92 18 145/65 (91) 100 04/05/19 09:00 Room Air Laboratory Tests Test 04/05/19 07:00 White Blood Count 8.6 K/UL (4.8-10.8) Red Blood Count 3.51 M/UL (4.20-5.40) L Hemoglobin 9.0 G/DL (12.0-16.0) L Hematocrit 28.3 % (37.0-47.0) L Mean Corpuscular Volume 81 FL (80-99) Mean Corpuscular Hemoglobin 25.5 PG (27.0-31.0) L Mean Corpuscular Hemoglobin Concent 31.7 G/DL (32.0-36.0) L Red Cell Distribution Width 13.6 % (11.6-14.8) Platelet Count 229 K/UL (150-450) Mean Platelet Volume 6.6 FL (6.5-10.1) Neutrophils (%) (Auto) 63.1 % (45.0-75.0) Lymphocytes (%) (Auto) 25.9 % (20.0-45.0) Monocytes (%) (Auto) 5.9 % (1.0-10.0) Eosinophils (%) (Auto) 4.1 % (0.0-3.0) H Basophils (%) (Auto) 1.1 % (0.0-2.0) Sodium Level 144 MMOL/L (136-145) Potassium Level 3.9 MMOL/L (3.5-5.1) Chloride Level 110 MMOL/L (98-107) H Carbon Dioxide Level 28 MMOL/L (21-32) Anion Gap 7 mmol/L (5-15) Blood Urea Nitrogen 20 mg/dL (7-18) H Creatinine 1.2 MG/DL (0.55-1.30) Estimat Glomerular Filtration Rate 54.2 mL/min (>60) Glucose Level 92 MG/DL (74-106) Hemoglobin A1c 7.2 % (4.3-6.0) H Calcium Level 8.5 MG/DL (8.5-10.1) Total Bilirubin 0.3 MG/DL (0.2-1.0) Aspartate Amino Transf (AST/SGOT) 12 U/L (15-37) L Alanine Aminotransferase (ALT/SGPT) 10 U/L (12-78) L Alkaline Phosphatase 56 U/L (46-116) Total Protein 6.3 G/DL (6.4-8.2) L Albumin 2.6 G/DL (3.4-5.0) L Globulin 3.7 g/dL Albumin/Globulin Ratio 0.7 (1.0-2.7) L Triglycerides Level 58 MG/DL (30-150) Cholesterol Level 134 MG/DL (< 200) LDL Cholesterol 74 mg/dL (<100) HDL Cholesterol 42 MG/DL (40-60) Cholesterol/HDL Ratio 3.2 (3.3-4.4) L Thyroid Stimulating Hormone (TSH) 0.697 uiU/mL (0.358-3.740) Intake and Output 04/04/19 04/05/19 18:59 06:59 Intake Total 240 ml 200 ml Output Total 1 ml Balance 240 ml 199 ml Intake Oral 240 ml 200 ml Output Stool Total 1 ml # Voids 1 Objective PHYSICAL EXAMINATION: GENERAL: The patient is well-developed and well-nourished obese female, in no apparent distress. HEENT: Eyes, pupils are equal and responsive to light and accommodation. Extraocular movements are intact. NECK: Supple without lymphadenopathy. CHEST: Lungs are clear to auscultation bilaterally without wheezes or rales. CARDIOVASCULAR: Regular rate. S1 and S2 normal without murmurs, rubs, or gallops. ABDOMEN: Soft, nontender, nondistended. Positive bowel sounds. No evidence of hepatosplenomegaly. Currently, no rebound or guarding noted. EXTREMITIES: Negative for clubbing, cyanosis, or edema. RECTAL/GENITAL: Not performed. NEUROLOGIC: Cranial nerves II through XII are grossly intact without focal deficits. Motor strength is 5/5 bilaterally. Deep tendon reflexes are 2+ plantar. Assessment/Plan Assessment/Plan ASSESSMENT: This is a 68-year-old female. 1. Diabetic left heel ulcer. 2. Diabetes type 2. 3. Hypertension. TREATMENT: 1. Left diabetic foot ulcer. A Podiatry consultation has been obtained with Dr. Hoyt. We will follow recommendations of Podiatry. An MRI of the bilateral feet is pending to rule out acute osteomyelitis. 2. Diabetes type 2. NovoLog sliding scale has been instituted. 3. Hypertension. The patient has been started empirically on lisinopril. Milan Limon MD Apr 05, 2019 18:15
--- NOTE | 2019-04-05 19:28 | NUR ---
HAND-OFF: Report given to CATA Yu.
--- NOTE | 2019-04-05 19:30 | NUR ---
NURSE NOTES: Received patient in bed. A/O x4. Patient appears calm and comfortable. On room air and no distress noted. Patient denies pain at this time.
[2019-04-05 20:00] VITALS: BP 130/67
[2019-04-05] MEDS: Dyna-Hex 2% Top Sol 2oz TOPIC SCH (20:00)
[2019-04-06] VITALS: BP 149/72
[2019-04-06 04:00] VITALS: BP 127/85
--- NOTE | 2019-04-06 04:27 | NUR ---
NURSE NOTES: Dressing change done for bilateral heels.
[2019-04-06] MEDS: Piperacillin/Tazobactam 3.375 GM in NS 110 ML IVPB SCH ×2 (06:00→14:05)
[2019-04-06] MEDS: NovoLOG Insulin Flexpen SUBQ SCH ×4 (06:07→22:07)
[2019-04-06 06:30] LABS: APPEARANCE,URINE CLEAR; BILIRUBIN, URINE NEGATIVE (NEGATIVE); GLUCOSE, URINE (UA) NEGATIVE (NEGATIVE); KETONES,URINE NEGATIVE (NEGATIVE); LEUKOCYTE ESTERASE ,URINE 3+ (NEGATIVE); NITRITE,URINE NEGATIVE (NEGATIVE); PH,URINE 5 (4.5-8.0); PROTEIN,URINE 1+ (NEGATIVE); UROBILINOGEN,URINE NORMAL MG/DL (0.0-1.0)
[2019-04-06 06:31] LABS: COLOR,URINE YELLOW
[2019-04-06] MEDS: Vancomycin 1gm/D5W 275ml IVPB SCH ×2 (06:43)
[2019-04-06] MEDS ORDERED: Lidocaine 1% Plain 30 ml INJ ONE (07:00)
[2019-04-06] MEDS ORDERED: Heparin1,000 units/500ml Premix(Conc:2 units/ml) ONE (07:00)
[2019-04-06 07:24] LABS: BASOPHILS % (AUTO) 0.8 % (0.0-2.0); EOSINOPHILS % (AUTO) 3.9 % (0.0-3.0); HEMATOCRIT 27.1 % (37.0-47.0); HEMOGLOBIN 8.5 G/DL (12.0-16.0); LYMPHOCYTES % (AUTO) 32.9 % (20.0-45.0); MEAN CORPUSCULAR VOLUME 81 FL (80-99); MONOCYTES % (AUTO) 6.7 % (1.0-10.0); NEUTROPHILS % (AUTO) 55.7 % (45.0-75.0); PLATELET COUNT 228 K/UL (150-450); RED BLOOD COUNT 3.34 M/UL (4.20-5.40); WHITE BLOOD COUNT 7.8 K/UL (4.8-10.8)
[2019-04-06 07:34] LABS: ALANINE AMINOTRANSFERASE 12 U/L (12-78); ALBUMIN 2.4 G/DL (3.4-5.0); ALBUMIN/GLOBULIN RATIO 0.6 (1.0-2.7); ALKALINE PHOSPHATASE 51 U/L (46-116); ANION GAP 1 mmol/L (5-15); ASPARTATE AMINO TRANSFERASE 13 U/L (15-37); BILIRUBIN,TOTAL 0.3 MG/DL (0.2-1.0); BLOOD UREA NITROGEN 19 mg/dL (7-18); CARBON DIOXIDE 32 MMOL/L (21-32); CHLORIDE 109 MMOL/L (98-107); CREATININE 1.3 MG/DL (0.55-1.30); LACTATE DEHYDROGENASE 133 U/L (81-234); POTASSIUM 4.2 MMOL/L (3.5-5.1); SODIUM 141 MMOL/L (136-145)
[2019-04-06 07:35] LABS: PHOSPHORUS 3.3 MG/DL (2.5-4.9)
--- NOTE | 2019-04-06 07:50 | NUR ---
HAND-OFF: Report given to Lizbeth IVY.
--- NOTE | 2019-04-06 07:51 | NUR ---
NURSE NOTES: Received patient in bed awake. No SOB or acute distress. Wound dressings intact. HOB elevated. Bed locked in lowest position. Call light within reach. Will continue plan of care. For PICC line insertion.
[2019-04-06 08:00] VITALS: BP 154/74
[2019-04-06 08:02] LABS: % IRON SATURATION 18 % (15-50); IRON 31 ug/dL (50-175); TOTAL IRON BINDING CAPACITY 177 ug/dL (250-450)
[2019-04-06] MEDS: Losartan 50mg tab ORAL SCH (08:32)
[2019-04-06] MEDS: metFORMIN 500mg tab ORAL SCH ×2 (08:32→18:11)
[2019-04-06] MEDS: Heparin 5000 units/ml inj SUBQ SCH ×2 (09:00→22:13)
--- NOTE | 2019-04-06 10:52 | NUR ---
NURSE NOTES: Patient brought down for picc line insertion.
--- NOTE | 2019-04-06 11:30 | NUR ---
Physical Therapy Notes: Unable to see pt for PT service this am as pt out for PICC line insertion. Will check back this afternoon, if schedule permits.
--- NOTE | 2019-04-06 11:47 | Pre-Procedure Note/Attestation ---
Pre-Procedure Note/Attestation Complete Prior to Procedure Procedure Narrative: PICC Indications for Procedure Pre-Operative Diagnosis: needs senior living IV access Attestation I attest that I discussed the nature of the procedure; its benefits; risks and complications; and alternatives (and the risks and benefits of such alternatives ), prior to the procedure, with the patient (or the patient's legal sales representative public utilities). I attest that, if there was a reasonable possibility of needing a blood transfusion, the patient (or the patient's legal sales representative public utilities) was given the [facility] standardized written summary, pursuant to the [place] Blood Safety Act ([place] Health and Safety Code # 1645, as amended). I attest that I re-evaluated the patient just prior to the surgery and that there has been no change in the patient's H&P, except as documented below: Rojsa Nj MD Apr 06, 2019 11:47
--- NOTE | 2019-04-06 11:48 | Brief Operative Note ---
Immediate Post Operative Note Operative Note Pre-op Diagnosis: needs ocean transportation intermediary IV access Procedure: PICC Post-op Diagnosis: same as pre-op Surgeon: River Love Anesthesia: local Specimen: none Complications: none Fluids: none Implant(s) used?: No Rojas Love MD Apr 06, 2019 11:48
--- NOTE | 2019-04-06 12:18 | Consultation ---
History of Present Illness General Date patient seen: Apr 06, 2019 Referring physician: Dr. Limon Present Illness HPI 68 y/o F with hx of Dm2, HTN is transferred from [place] to [facility] [place] with b/l heel pain (L>R). Denied f/c, COWAN, CP. Allergies: Coded Allergies: SULFA (SULFONAMIDE ANTIBIOTICS) (Verified Allergy, Mild, 04/04/19) Patient History Healthcare decision maker Resuscitation status Advanced Directive on File Patient History Narrative Pmhx: as above Shx:The patient is a and lives alone. The patient denies tobacco or alcohol use. Fhx: non contributory Physical Exam Physical Exam Narrative GENERAL: The patient is well-developed and well-nourished obese female, in no apparent distress. HEENT: Eyes, pupils are equal and responsive to light and accommodation. Extraocular movements are intact. NECK: Supple without lymphadenopathy. CHEST: Lungs are clear to auscultation bilaterally without wheezes or rales. CARDIOVASCULAR: Regular rate. S1 and S2 normal without murmurs, rubs, or gallops. ABDOMEN: Soft, nontender, nondistended. Positive bowel sounds. No evidence of hepatosplenomegaly. Currently, no rebound or guarding noted. EXTREMITIES: Negative for clubbing, cyanosis, or edema. Last 24 Hour Vital Signs Date Time Temp Pulse Resp B/P (MAP) Pulse Ox O2 Delivery O2 Flow Rate FiO2 04/06/19 08:32 75 154/74 04/06/19 08:32 154/74 04/06/19 08:00 98.1 75 17 154/74 (100) 96 04/06/19 04:00 98.8 80 21 127/85 (99) 96 04/06/19 00:00 98.6 75 19 149/72 (97) 96 04/05/19 21:00 Room Air 04/05/19 20:32 108/57 04/05/19 20:00 98.6 86 18 130/67 (88) 96 04/05/19 16:00 97.8 92 18 145/65 (91) 100 Intake and Output 04/05/19 04/06/19 19:00 07:00 Intake Total 1100 ml Balance 1100 ml Intake Oral 1100 ml # Voids 1 Laboratory Tests Test 04/06/19 06:15 04/06/19 06:20 Urine Color Yellow Urine Appearance Clear Urine pH 5 (4.5-8.0) Urine Specific [place] 1.020 (1.005-1.035) Urine Protein 1+ (NEGATIVE) H Urine Glucose (UA) Negative (NEGATIVE) Urine Ketones Negative (NEGATIVE) Urine Blood 1+ (NEGATIVE) H Urine Nitrite Negative (NEGATIVE) Urine Bilirubin Negative (NEGATIVE) Urine Urobilinogen Normal MG/DL (0.0-1.0) Urine Leukocyte Esterase 3+ (NEGATIVE) H Urine RBC 2-4 /HPF (0 - 2) H Urine WBC 2-4 /HPF (0 - 2) Urine Squamous Epithelial Cells Moderate /LPF (NONE/OCC) H Urine Bacteria Few /HPF (NONE) Urine Yeast Occasional /HPF (NONE) H White Blood Count 7.8 K/UL (4.8-10.8) Red Blood Count 3.34 M/UL (4.20-5.40) L Hemoglobin 8.5 G/DL (12.0-16.0) L Hematocrit 27.1 % (37.0-47.0) L Mean Corpuscular Volume 81 FL (80-99) Mean Corpuscular Hemoglobin 25.5 PG (27.0-31.0) L Mean Corpuscular Hemoglobin Concent 31.4 G/DL (32.0-36.0) L Red Cell Distribution Width 14.0 % (11.6-14.8) Platelet Count 228 K/UL (150-450) Mean Platelet Volume 6.7 FL (6.5-10.1) Neutrophils (%) (Auto) 55.7 % (45.0-75.0) Lymphocytes (%) (Auto) 32.9 % (20.0-45.0) Monocytes (%) (Auto) 6.7 % (1.0-10.0) Eosinophils (%) (Auto) 3.9 % (0.0-3.0) H Basophils (%) (Auto) 0.8 % (0.0-2.0) Differential Total Cells Counted 100 Neutrophils % (Manual) 56 % (45-75) Lymphocytes % (Manual) 32 % (20-45) Monocytes % (Manual) 7 % (1-10) Eosinophils % (Manual) 4 % (0-3) H Basophils % (Manual) 1 % (0-2) Band Neutrophils 0 % (0-8) Platelet Estimate Adequate Platelet Morphology Normal Hypochromasia 2+ Anisocytosis 1+ Erythrocyte Sedimentation Rate 56 MM/HR (0-30) H Reticulocyte Count Pending Prothrombin Time 11.1 SEC (9.30-11.50) Prothromb Time International Ratio 1.0 (0.9-1.1) Activated Partial Thromboplast Time 31 SEC (23-33) Sodium Level 141 MMOL/L (136-145) Potassium Level 4.2 MMOL/L (3.5-5.1) Chloride Level 109 MMOL/L (98-107) H Carbon Dioxide Level 32 MMOL/L (21-32) Anion Gap 1 mmol/L (5-15) L Blood Urea Nitrogen 19 mg/dL (7-18) H Creatinine 1.3 MG/DL (0.55-1.30) Estimat Glomerular Filtration Rate 49.3 mL/min (>60) Glucose Level 81 MG/DL (74-106) Calcium Level 8.0 MG/DL (8.5-10.1) L Phosphorus Level 3.3 MG/DL (2.5-4.9) Magnesium Level 1.5 MG/DL (1.8-2.4) L Iron Level 31 ug/dL (50-175) L Total Iron Binding Capacity 177 ug/dL (250-450) L Percent Iron Saturation 18 % (15-50) Unsaturated Iron Binding 146 ug/dL (112-346) Total Bilirubin 0.3 MG/DL (0.2-1.0) Aspartate Amino Transf (AST/SGOT) 13 U/L (15-37) L Alanine Aminotransferase (ALT/SGPT) 12 U/L (12-78) Alkaline Phosphatase 51 U/L (46-116) Lactate Dehydrogenase 133 U/L (81-234) C-Reactive Protein, Quantitative 4.0 mg/dL (0.00-0.90) H Total Protein 6.1 G/DL (6.4-8.2) L Albumin 2.4 G/DL (3.4-5.0) L Globulin 3.7 g/dL Albumin/Globulin Ratio 0.6 (1.0-2.7) L Carcinoembryonic Antigen Pending Vitamin B12 Level 586 PG/ML (193-986) Folate 8.5 NG/ML (8.6-58.9) L Height (Feet): 5 Height (Inches): 7.00 Weight (Pounds): 280 Medications Current Medications Medications (Trade) Dose Ordered Sig/Isak Route PRN Reason Start Time Stop Time Status Last Admin Dose Admin Acetaminophen (Tylenol) 650 mg Q4H PRN ORAL Mild Pain (Pain Scale 1-3) 04/04/19 12:45 05/04/19 12:44 Acetaminophen (Tylenol) 650 mg Q4H PRN ORAL fever 04/04/19 13:00 05/04/19 12:59 Albuterol/ Ipratropium (Albuterol/ Ipratropium) 3 ml Q4H PRN HHN Shortness of Breath 04/04/19 13:00 04/09/19 12:59 Amlodipine Besylate (Norvasc) 10 mg DAILY ORAL 04/05/19 09:00 05/05/19 08:59 04/06/19 08:32 Chlorhexidine Gluconate (Autumn-Hex 2%) 1 applic DAILY@2000 TOPIC 04/05/19 20:00 05/05/19 19:59 Clonazepam (KlonoPIN) 0.5 mg DAILYPRN PRN ORAL For Anxiety 04/04/19 13:45 04/11/19 13:44 Clonidine HCl (Catapres Tab) 0.1 mg Q4H PRN ORAL sbp more than 160 04/04/19 13:00 05/04/19 12:59 04/04/19 13:37 Clonidine HCl (Catapres Tab) 0.1 mg QHS ORAL 04/05/19 21:00 05/05/19 20:59 04/05/19 20:32 Dextrose (Dextrose 50%) 25 ml Q30M PRN IV Hypoglycemia 04/04/19 13:00 05/04/19 12:59 Dextrose (Dextrose 50%) 50 ml Q30M PRN IV Hypoglycemia 04/04/19 13:00 05/04/19 12:59 Diphenhydramine HCl (Benadryl) 25 mg Q6H PRN ORAL Itching/Pruritis 04/04/19 12:45 05/04/19 12:44 04/06/19 08:32 Heparin Sodium (Porcine) (Heparin 5000 units/ml) 5,000 units EVERY 12 HOURS SUBQ 04/04/19 21:00 05/04/19 20:59 04/05/19 20:20 Insulin Aspart (NovoLOG) BEFORE MEALS AND HS SUBQ 04/04/19 16:30 05/04/19 16:29 04/05/19 20:18 Ketorolac Tromethamine (Toradol 30mg) 30 mg Q6H PRN IV moderate pain 4-6 04/04/19 13:00 04/09/19 12:59 Losartan Potassium (Cozaar) 50 mg DAILY ORAL 04/05/19 09:00 05/05/19 08:59 04/06/19 08:32 Metformin HCl (Glucophage) 500 mg TWICE A DAY ORAL 04/04/19 18:00 05/04/19 17:59 04/06/19 08:32 Morphine Sulfate (Morphine Sulfate) 2 mg Q4H PRN IVP severe pain 7-10 04/04/19 13:00 04/11/19 12:59 Nitroglycerin (Ntg) 0.4 mg Q5M X 3 DOSES PRN SL Prn Chest Pain 04/04/19 13:00 05/04/19 12:59 Ondansetron HCl (Zofran) 4 mg Q6H PRN IVP Nausea & Vomiting 04/04/19 13:00 05/04/19 12:59 Oxycodone/ Acetaminophen (Percocet 10/325) 1 tab Q4H PRN ORAL pain 4-7 04/04/19 13:00 04/11/19 12:59 04/06/19 04:03 Pantoprazole (Protonix) 40 mg DAILY ORAL 04/05/19 09:00 05/05/19 08:59 04/06/19 08:32 Piperacillin Sod/ Tazobactam Sod 3.375 gm/Sodium Chloride 110 ml @ 27.5 mls/hr EVERY 8 HOURS IVPB 04/04/19 15:00 04/09/19 14:59 04/04/19 16:20 Polyethylene Glycol (Miralax) 17 gm HSPRN PRN ORAL Constipation 04/04/19 13:00 05/04/19 12:59 Sodium Chloride 1,000 ml @ 100 mls/hr Q10H IVLG 04/04/19 12:47 05/04/19 12:46 04/04/19 12:47 Temazepam (Restoril) 15 mg HSPRN PRN ORAL Insomnia 04/04/19 13:00 04/11/19 12:59 Vancomycin HCl (Vanco rx to dose) 1 ea DAILY PRN MISC Per rx protocol 04/04/19 13:00 05/04/19 12:59 Vancomycin HCl 1 gm/Dextrose 275 ml @ 183.708 mls/hr Q12H IVPB 04/05/19 07:00 04/10/19 06:59 Assessment/Plan Assessment/Plan: Abx: IV Vancomycin 04/04- Zosyn 04/04- Assessment: B/l heel ulcerations and pain; L heel and leg cellulitis -L ankle MRI: Superficial skin erosion in the region of MRI marker responding to stated clinical history of heel ulcer. Faint slightly increased STIR signal in the calcaneal tuberosity, without associated T1 abnormality. Most likely reactive, although very early osteomyelitis cannot be completely ruled out. Faint slightly increased her signal in the talus, likewise without associated T1 abnormality. Most likely reactive, but early osteomyelitis cannot be completely ruled out. Extensive edema of the subcutaneous fat, as described. Given stated clinical history, may be on the basis of cellulitis, but could also indicate edema of vasogenic/hemodynamic origin. Correlate with clinical findings -R foot MRI: No evidence of osteomyelitis demonstrated. Diffuse edema of the subcutaneous fat, may indicate cellulitis or edema due to hemodynamic causes. No focal fluid collection to suggest abscess -R foot xray: no acute fracture -L foot xray: Soft tissue swelling. No acute injury identified. Osteoarthritis -ESR 56,CRP 4.0 Afebrile No leukocytosis Dm2 HTN Plan: -Switch IV Vancomycin and Zosyn #3 to Ancef for cellulitis -f/u cx -Monitor CBC/CMP, temperatures Thank you for this consultation. Will continue to follow along with you. Discussed with Natalie Fletcher M.D. Apr 06, 2019 12:18
--- NOTE | 2019-04-06 13:54 | NUR ---
PHYSICAL THERAPY NOTES: PT services offered, pt declined. Reported too much LE pain. RN was alerted. Will check back tomorrow.
[2019-04-06] MEDS: Morphine Sulfate 2mg/ml Inj(IV/IM USE ONLY) IVP PRN ×2 (14:05→18:18)
--- NOTE | 2019-04-06 14:25 | Pulmonology Progress Note ---
Assessment/Plan Problems: (1) Diabetic foot ulcer (2) Elephantiasis (3) Severe anemia (4) Diabetes mellitus (5) Morbid obesity with BMI of 40.0-44.9, adult (6) Cellulitis Assessment/Plan f/u cultures f/u MRI. negative iv abx anemia w/u. one dose of IV Venofer. sliding scale diabetic diet Subjective ROS Limited/Unobtainable: No Constitutional: Reports: no symptoms HEENT: Repors: no symptoms Respiratory: Reports: no symptoms Allergies: Coded Allergies: SULFA (SULFONAMIDE ANTIBIOTICS) (Verified Allergy, Mild, 04/04/19) Objective Last 24 Hour Vital Signs Date Time Temp Pulse Resp B/P (MAP) Pulse Ox O2 Delivery O2 Flow Rate FiO2 04/06/19 08:32 75 154/74 04/06/19 08:32 154/74 04/06/19 08:00 98.1 75 17 154/74 (100) 96 04/06/19 04:00 98.8 80 21 127/85 (99) 96 04/06/19 00:00 98.6 75 19 149/72 (97) 96 04/05/19 21:00 Room Air 04/05/19 20:32 108/57 04/05/19 20:00 98.6 86 18 130/67 (88) 96 04/05/19 16:00 97.8 92 18 145/65 (91) 100 Intake and Output 04/05/19 04/06/19 19:00 07:00 Intake Total 1100 ml Balance 1100 ml Intake Oral 1100 ml # Voids 1 General Appearance: WD/WN HEENT: normocephalic, atraumatic Respiratory/Chest: chest wall non-tender, normal breath sounds Breasts: no masses Cardiovascular: normal peripheral pulses Abdomen: normal bowel sounds, no mass Extremities: no cyanosis Skin: no rash Laboratory Tests 04/06/19 06:15: Urine Color Yellow, Urine Appearance Clear, Urine pH 5, Urine Specific [place] 1.020, Urine Protein 1+H, Urine Glucose (UA) Negative, Urine Ketones Negative, Urine Blood 1+H, Urine Nitrite Negative, Urine Bilirubin Negative, Urine Urobilinogen Normal, Urine Leukocyte Esterase 3+H, Urine RBC 2-4H, Urine WBC 2-4 , Urine Squamous Epithelial Cells ModerateH, Urine Bacteria Few, Urine Yeast OccasionalH 04/06/19 06:20: White Blood Count 7.8, Red Blood Count 3.34L, Hemoglobin 8.5L, Hematocrit 27.1L , Mean Corpuscular Volume 81, Mean Corpuscular Hemoglobin 25.5L, Mean Corpuscular Hemoglobin Concent 31.4L, Red Cell Distribution Width 14.0, Platelet Count 228, Mean Platelet Volume 6.7, Neutrophils (%) (Auto) 55.7, Lymphocytes (%) (Auto) 32.9, Monocytes (%) (Auto) 6.7, Eosinophils (%) (Auto) 3.9H, Basophils (%) (Auto) 0.8, Differential Total Cells Counted 100, Neutrophils % (Manual) 56, Lymphocytes % (Manual) 32, Monocytes % (Manual) 7, Eosinophils % (Manual) 4H, Basophils % (Manual) 1, Band Neutrophils 0, Platelet Estimate Adequate, Platelet Morphology Normal, Hypochromasia 2+, Anisocytosis 1+ , Erythrocyte Sedimentation Rate 56H, Reticulocyte Count 2.2H, Prothrombin Time 11.1, Prothromb Time International Ratio 1.0, Activated Partial Thromboplast Time 31, Sodium Level 141, Potassium Level 4.2, Chloride Level 109H, Carbon Dioxide Level 32, Anion Gap 1L, Blood Urea Nitrogen 19H, Creatinine 1.3, Estimat Glomerular Filtration Rate 49.3, Glucose Level 81, Calcium Level 8.0L, Phosphorus Level 3.3, Magnesium Level 1.5L, Iron Level 31L, Total Iron Binding Capacity 177L, Percent Iron Saturation 18, Unsaturated Iron Binding 146, Total Bilirubin 0.3, Aspartate Amino Transf (AST/SGOT) 13L, Alanine Aminotransferase ( ALT/SGPT) 12, Alkaline Phosphatase 51, Lactate Dehydrogenase 133, C-Reactive Protein, Quantitative 4.0H, Total Protein 6.1L, Albumin 2.4L, Globulin 3.7, Albumin/Globulin Ratio 0.6L, Carcinoembryonic Antigen [Pending], Vitamin B12 Level 586, Folate 8.5L Current Medications Medications (Trade) Dose Ordered Sig/Isak Route PRN Reason Start Time Stop Time Status Last Admin Dose Admin Acetaminophen (Tylenol) 650 mg Q4H PRN ORAL Mild Pain (Pain Scale 1-3) 04/04/19 12:45 05/04/19 12:44 Acetaminophen (Tylenol) 650 mg Q4H PRN ORAL fever 04/04/19 13:00 05/04/19 12:59 Albuterol/ Ipratropium (Albuterol/ Ipratropium) 3 ml Q4H PRN HHN Shortness of Breath 04/04/19 13:00 04/09/19 12:59 Amlodipine Besylate (Norvasc) 10 mg DAILY ORAL 04/05/19 09:00 05/05/19 08:59 04/06/19 08:32 Chlorhexidine Gluconate (Autumn-Hex 2%) 1 applic DAILY@2000 TOPIC 04/05/19 20:00 05/05/19 19:59 Clonazepam (KlonoPIN) 0.5 mg DAILYPRN PRN ORAL For Anxiety 04/04/19 13:45 04/11/19 13:44 Clonidine HCl (Catapres Tab) 0.1 mg Q4H PRN ORAL sbp more than 160 04/04/19 13:00 05/04/19 12:59 04/04/19 13:37 Clonidine HCl (Catapres Tab) 0.1 mg QHS ORAL 04/05/19 21:00 05/05/19 20:59 04/05/19 20:32 Dextrose (Dextrose 50%) 25 ml Q30M PRN IV Hypoglycemia 04/04/19 13:00 05/04/19 12:59 Dextrose (Dextrose 50%) 50 ml Q30M PRN IV Hypoglycemia 04/04/19 13:00 05/04/19 12:59 Diphenhydramine HCl (Benadryl) 25 mg Q6H PRN ORAL Itching/Pruritis 04/04/19 12:45 05/04/19 12:44 04/06/19 08:32 Heparin Sodium (Porcine) (Heparin 5000 units/ml) 5,000 units EVERY 12 HOURS SUBQ 04/04/19 21:00 05/04/19 20:59 04/05/19 20:20 Insulin Aspart (NovoLOG) BEFORE MEALS AND HS SUBQ 04/04/19 16:30 05/04/19 16:29 04/05/19 20:18 Iron Sucrose 200 mg/Sodium Chloride 120 ml @ 240 mls/hr ONCE IV 04/06/19 21:00 04/06/19 23:00 Losartan Potassium (Cozaar) 50 mg DAILY ORAL 04/05/19 09:00 05/05/19 08:59 04/06/19 08:32 Metformin HCl (Glucophage) 500 mg TWICE A DAY ORAL 04/04/19 18:00 05/04/19 17:59 04/06/19 08:32 Morphine Sulfate (Morphine Sulfate) 2 mg Q4H PRN IVP severe pain 7-10 04/04/19 13:00 04/11/19 12:59 04/06/19 14:05 Nitroglycerin (Ntg) 0.4 mg Q5M X 3 DOSES PRN SL Prn Chest Pain 04/04/19 13:00 05/04/19 12:59 Ondansetron HCl (Zofran) 4 mg Q6H PRN IVP Nausea & Vomiting 04/04/19 13:00 05/04/19 12:59 Oxycodone/ Acetaminophen (Percocet 10/325) 1 tab Q4H PRN ORAL pain 4-7 04/04/19 13:00 04/11/19 12:59 04/06/19 04:03 Pantoprazole (Protonix) 40 mg DAILY ORAL 04/05/19 09:00 05/05/19 08:59 04/06/19 08:32 Piperacillin Sod/ Tazobactam Sod 3.375 gm/Sodium Chloride 110 ml @ 27.5 mls/hr EVERY 8 HOURS IVPB 04/04/19 15:00 04/09/19 14:59 04/06/19 14:05 Polyethylene Glycol (Miralax) 17 gm HSPRN PRN ORAL Constipation 04/04/19 13:00 05/04/19 12:59 Temazepam (Restoril) 15 mg HSPRN PRN ORAL Insomnia 04/04/19 13:00 04/11/19 12:59 Vancomycin HCl (Vanco rx to dose) 1 ea DAILY PRN MISC Per rx protocol 04/04/19 13:00 05/04/19 12:59 Vancomycin HCl 1 gm/Dextrose 275 ml @ 183.708 mls/hr Q12H IVPB 04/05/19 07:00 04/10/19 06:59 Mine Olguin MD Apr 06, 2019 14:25
--- NOTE | 2019-04-06 14:48 | NUR ---
CASE MANAGEMENT: INITIAL REVIEW 68YR OLD FEMALE TRANSFERRED FROM [place] CC: BILATERAL HEEL PAIN SI: DIABETIC FOOT ULCER . ELEPHANTASIS . SEVER ANEMIA . DM 97.7 86 18 163/80 100% ON RA H/H .06/29.2 BG 160 IS:IVF NS BOLUS HEPARIN SQ X1 4E MED SURG UNIT PLAN: OFF-LOADING HEELS MRI FEET PODIATRY CONSULT CASE MANAGEMENT: REVIEW 04/06/19 SI: DIABETIC FOOT ULCER . ELEPHANTASIS . SEVER ANEMIA . DM 97.7 86 18 163/80 100% ON RA H/H 9.2.2 BG 160 IS:IV ZOSYN Q8HR COZAAR PO QD NORVASC PO QD CLONIDINE PO QHS CLONIDINE PO Q4/PRN PROTONIX PO QD METFORMIN PO BID 4E MED SURG UNIT PLAN: PICC LINE FOR IV ABX OFF-LOADING HEELS MRI FEET PODIATRY CONSULT
--- NOTE | 2019-04-06 15:45 | Diagnostic Imaging Report ---
Indications: Needs long-term IV access Technique: Ultrasound confirms patent compressible left basilic vein. Total sterile technique, including sterile probe cover and sterile gel, hat, mask, sterile gown, large sterile drape, and preparation with 2% chlorhexidine utilized. Local anesthesia with 1% lidocaine. Under real-time ultrasound guidance, puncture basilic vein using 21-gauge needle, documented and archived, passage 0.018 guidewire under direct fluoroscopy, which was used to determine appropriate catheter length, exchange for 4 Haitian peel-away sheath. 4 Haitian dual-lumen power PICC cut to 41 cm. It was inserted through the peel-away sheath. Peel-away sheath and guidewire removed. Catheter fixed to the skin. Both catheter ports aspirated and flushed. Patient tolerated procedure well, without immediate complication. Digital radiograph documents satisfactory catheter tip position, at the cavoatrial junction. Total fluoroscopy time 19.5 seconds. Total dose area product 4.46 mGy Total number of images: 1 Impression: Successful placement of left arm PICC under sonographic and fluoroscopic guidance, as described above.
[2019-04-06 16:00] VITALS: BP 130/79
--- NOTE | 2019-04-06 18:00 | NUR ---
NURSE NOTES: PICC line difficult to flush, with significant resistance noted. Charge nurse aware, said to further observe.
--- NOTE | 2019-04-06 18:02 | Internal Med Progress Note ---
Subjective Date of Service: Apr 06, 2019 Physician Name Milan Limon Attending Physician Clarence Sue MD Current Medications Medications (Trade) Dose Ordered Sig/Isak Route PRN Reason Start Time Stop Time Status Last Admin Dose Admin Acetaminophen (Tylenol) 650 mg Q4H PRN ORAL Mild Pain (Pain Scale 1-3) 04/04/19 12:45 05/04/19 12:44 Acetaminophen (Tylenol) 650 mg Q4H PRN ORAL fever 04/04/19 13:00 05/04/19 12:59 Albuterol/ Ipratropium (Albuterol/ Ipratropium) 3 ml Q4H PRN HHN Shortness of Breath 04/04/19 13:00 04/09/19 12:59 Amlodipine Besylate (Norvasc) 10 mg DAILY ORAL 04/05/19 09:00 05/05/19 08:59 04/06/19 08:32 Cefazolin Sodium 1 gm/Dextrose 55 ml @ 110 mls/hr Q8HR IVPB 04/06/19 22:00 04/13/19 21:59 Chlorhexidine Gluconate (Autumn-Hex 2%) 1 applic DAILY@2000 TOPIC 04/05/19 20:00 05/05/19 19:59 Clonazepam (KlonoPIN) 0.5 mg DAILYPRN PRN ORAL For Anxiety 04/04/19 13:45 04/11/19 13:44 Clonidine HCl (Catapres Tab) 0.1 mg Q4H PRN ORAL sbp more than 160 04/04/19 13:00 05/04/19 12:59 04/04/19 13:37 Clonidine HCl (Catapres Tab) 0.1 mg QHS ORAL 04/05/19 21:00 05/05/19 20:59 04/05/19 20:32 Dextrose (Dextrose 50%) 25 ml Q30M PRN IV Hypoglycemia 04/04/19 13:00 05/04/19 12:59 Dextrose (Dextrose 50%) 50 ml Q30M PRN IV Hypoglycemia 04/04/19 13:00 05/04/19 12:59 Diphenhydramine HCl (Benadryl) 25 mg Q6H PRN ORAL Itching/Pruritis 04/04/19 12:45 05/04/19 12:44 04/06/19 08:32 Heparin Sodium (Porcine) (Heparin 5000 units/ml) 5,000 units EVERY 12 HOURS SUBQ 04/04/19 21:00 05/04/19 20:59 04/05/19 20:20 Insulin Aspart (NovoLOG) BEFORE MEALS AND HS SUBQ 04/04/19 16:30 05/04/19 16:29 04/05/19 20:18 Iron Sucrose 200 mg/Sodium Chloride 120 ml @ 240 mls/hr ONCE IV 04/06/19 21:00 04/06/19 23:00 Losartan Potassium (Cozaar) 50 mg DAILY ORAL 04/05/19 09:00 05/05/19 08:59 04/06/19 08:32 Metformin HCl (Glucophage) 500 mg TWICE A DAY ORAL 04/04/19 18:00 05/04/19 17:59 04/06/19 08:32 Morphine Sulfate (Morphine Sulfate) 2 mg Q4H PRN IVP severe pain 7-10 04/04/19 13:00 04/11/19 12:59 04/06/19 14:05 Nitroglycerin (Ntg) 0.4 mg Q5M X 3 DOSES PRN SL Prn Chest Pain 04/04/19 13:00 05/04/19 12:59 Ondansetron HCl (Zofran) 4 mg Q6H PRN IVP Nausea & Vomiting 04/04/19 13:00 05/04/19 12:59 Oxycodone/ Acetaminophen (Percocet 10/325) 1 tab Q4H PRN ORAL pain 4-7 04/04/19 13:00 04/11/19 12:59 04/06/19 04:03 Pantoprazole (Protonix) 40 mg DAILY ORAL 04/05/19 09:00 05/05/19 08:59 04/06/19 08:32 Polyethylene Glycol (Miralax) 17 gm HSPRN PRN ORAL Constipation 04/04/19 13:00 05/04/19 12:59 Temazepam (Restoril) 15 mg HSPRN PRN ORAL Insomnia 04/04/19 13:00 04/11/19 12:59 Allergies: Coded Allergies: SULFA (SULFONAMIDE ANTIBIOTICS) (Verified Allergy, Mild, hives, 04/06/19) ROS Limited/Unobtainable: No Constitutional: Reports: no symptoms HEENT: Reports: no symptoms Cardiovascular: Reports: no symptoms Respiratory: Reports: no symptoms Gastrointestinal/Abdominal: Reports: no symptoms Genitourinary: Reports: no symptoms Neurologic/Psychiatric: Reports: no symptoms Subjective 68 YO F admitted with bilateral heel pain. Now left diabetic foot ulcer. Cover for Int Dash Sue Objective Last Vital Signs Date Time Temp Pulse Resp B/P (MAP) Pulse Ox O2 Delivery O2 Flow Rate FiO2 04/06/19 16:00 98.4 80 19 130/79 (96) 98 04/06/19 09:00 Room Air Laboratory Tests Test 04/06/19 06:15 04/06/19 06:20 Urine Color Yellow Urine Appearance Clear Urine pH 5 (4.5-8.0) Urine Specific [place] 1.020 (1.005-1.035) Urine Protein 1+ (NEGATIVE) H Urine Glucose (UA) Negative (NEGATIVE) Urine Ketones Negative (NEGATIVE) Urine Blood 1+ (NEGATIVE) H Urine Nitrite Negative (NEGATIVE) Urine Bilirubin Negative (NEGATIVE) Urine Urobilinogen Normal MG/DL (0.0-1.0) Urine Leukocyte Esterase 3+ (NEGATIVE) H Urine RBC 2-4 /HPF (0 - 2) H Urine WBC 2-4 /HPF (0 - 2) Urine Squamous Epithelial Cells Moderate /LPF (NONE/OCC) H Urine Bacteria Few /HPF (NONE) Urine Yeast Occasional /HPF (NONE) H White Blood Count 7.8 K/UL (4.8-10.8) Red Blood Count 3.34 M/UL (4.20-5.40) L Hemoglobin 8.5 G/DL (12.0-16.0) L Hematocrit 27.1 % (37.0-47.0) L Mean Corpuscular Volume 81 FL (80-99) Mean Corpuscular Hemoglobin 25.5 PG (27.0-31.0) L Mean Corpuscular Hemoglobin Concent 31.4 G/DL (32.0-36.0) L Red Cell Distribution Width 14.0 % (11.6-14.8) Platelet Count 228 K/UL (150-450) Mean Platelet Volume 6.7 FL (6.5-10.1) Neutrophils (%) (Auto) 55.7 % (45.0-75.0) Lymphocytes (%) (Auto) 32.9 % (20.0-45.0) Monocytes (%) (Auto) 6.7 % (1.0-10.0) Eosinophils (%) (Auto) 3.9 % (0.0-3.0) H Basophils (%) (Auto) 0.8 % (0.0-2.0) Differential Total Cells Counted 100 Neutrophils % (Manual) 56 % (45-75) Lymphocytes % (Manual) 32 % (20-45) Monocytes % (Manual) 7 % (1-10) Eosinophils % (Manual) 4 % (0-3) H Basophils % (Manual) 1 % (0-2) Band Neutrophils 0 % (0-8) Platelet Estimate Adequate Platelet Morphology Normal Hypochromasia 2+ Anisocytosis 1+ Erythrocyte Sedimentation Rate 56 MM/HR (0-30) H Reticulocyte Count 2.2 % (0.5-2.0) H Prothrombin Time 11.1 SEC (9.30-11.50) Prothromb Time International Ratio 1.0 (0.9-1.1) Activated Partial Thromboplast Time 31 SEC (23-33) Sodium Level 141 MMOL/L (136-145) Potassium Level 4.2 MMOL/L (3.5-5.1) Chloride Level 109 MMOL/L (98-107) H Carbon Dioxide Level 32 MMOL/L (21-32) Anion Gap 1 mmol/L (5-15) L Blood Urea Nitrogen 19 mg/dL (7-18) H Creatinine 1.3 MG/DL (0.55-1.30) Estimat Glomerular Filtration Rate 49.3 mL/min (>60) Glucose Level 81 MG/DL (74-106) Calcium Level 8.0 MG/DL (8.5-10.1) L Phosphorus Level 3.3 MG/DL (2.5-4.9) Magnesium Level 1.5 MG/DL (1.8-2.4) L Iron Level 31 ug/dL (50-175) L Total Iron Binding Capacity 177 ug/dL (250-450) L Percent Iron Saturation 18 % (15-50) Unsaturated Iron Binding 146 ug/dL (112-346) Total Bilirubin 0.3 MG/DL (0.2-1.0) Aspartate Amino Transf (AST/SGOT) 13 U/L (15-37) L Alanine Aminotransferase (ALT/SGPT) 12 U/L (12-78) Alkaline Phosphatase 51 U/L (46-116) Lactate Dehydrogenase 133 U/L (81-234) C-Reactive Protein, Quantitative 4.0 mg/dL (0.00-0.90) H Total Protein 6.1 G/DL (6.4-8.2) L Albumin 2.4 G/DL (3.4-5.0) L Globulin 3.7 g/dL Albumin/Globulin Ratio 0.6 (1.0-2.7) L Carcinoembryonic Antigen Pending Vitamin B12 Level 586 PG/ML (193-986) Folate 8.5 NG/ML (8.6-58.9) L Intake and Output 04/05/19 04/06/19 19:00 07:00 Intake Total 1100 ml Balance 1100 ml Intake Oral 1100 ml # Voids 1 Objective PHYSICAL EXAMINATION: GENERAL: The patient is well-developed and well-nourished obese female, in no apparent distress. HEENT: Eyes, pupils are equal and responsive to light and accommodation. Extraocular movements are intact. NECK: Supple without lymphadenopathy. CHEST: Lungs are clear to auscultation bilaterally without wheezes or rales. CARDIOVASCULAR: Regular rate. S1 and S2 normal without murmurs, rubs, or gallops. ABDOMEN: Soft, nontender, nondistended. Positive bowel sounds. No evidence of hepatosplenomegaly. Currently, no rebound or guarding noted. EXTREMITIES: Negative for clubbing, cyanosis, or edema. RECTAL/GENITAL: Not performed. NEUROLOGIC: Cranial nerves II through XII are grossly intact without focal deficits. Motor strength is 5/5 bilaterally. Deep tendon reflexes are 2+ plantar. Assessment/Plan Assessment/Plan ASSESSMENT: This is a 68-year-old female. 1. Diabetic left heel ulcer. 2. Diabetes type 2. 3. Hypertension. TREATMENT: 1. Left diabetic foot ulcer. A Podiatry consultation has been obtained with Dr. Hoyt. We will follow recommendations of Podiatry. An MRI of the bilateral feet is pending to rule out acute osteomyelitis. 2. Diabetes type 2. NovoLog sliding scale has been instituted. 3. Hypertension. The patient has been started empirically on lisinopril. Milan Limon MD Apr 06, 2019 18:02
--- NOTE | 2019-04-06 19:50 | NUR ---
HAND-OFF: Report given to
--- NOTE | 2019-04-06 19:51 | NUR ---
NURSE NOTES: Received patient in bed awake, alert and verbal. Breathing on room air. No SOB or acute distress. Wound dressings intact. PICC line intact. fall precaution is in place. Bed locked in lowest position. Bed alarm is on. Call light within reach. Will continue to monitor the pt.
[2019-04-06 20:00] VITALS: BP 149/79
[2019-04-06] MEDS ORDERED: Iron Sucrose 200 MG in NS 110 ML IV SCH (21:00)
[2019-04-06] MEDS: Dyna-Hex 2% Top Sol 2oz TOPIC SCH (22:05)
[2019-04-06] MEDS: ceFAZolin sod 1 GM in D5W 55 ML IVPB SCH (22:10)
[2019-04-07] VITALS: BP 158/76
--- NOTE | 2019-04-07 00:48 | NUR ---
NURSE NOTES: pt refused her novolOg 2units @ 2100 after scan medication. undo it in the eMar. Despite of education and encouragement pt refused sliding scale insulin 2 units. BS was 112.
[2019-04-07 04:00] VITALS: BP 151/73
[2019-04-07 05:05] LABS: BASOPHILS % (AUTO) 0.7 % (0.0-2.0); EOSINOPHILS % (AUTO) 3.9 % (0.0-3.0); HEMATOCRIT 27.8 % (37.0-47.0); HEMOGLOBIN 8.5 G/DL (12.0-16.0); LYMPHOCYTES % (AUTO) 27.7 % (20.0-45.0); MEAN CORPUSCULAR VOLUME 81 FL (80-99); MONOCYTES % (AUTO) 6.6 % (1.0-10.0); NEUTROPHILS % (AUTO) 61.1 % (45.0-75.0); PLATELET COUNT 221 K/UL (150-450); RED BLOOD COUNT 3.43 M/UL (4.20-5.40); RED CELL DISTRIBUTION WIDTH 13.9 % (11.6-14.8); WHITE BLOOD COUNT 6.7 K/UL (4.8-10.8)
[2019-04-07] MEDS: ceFAZolin sod 1 GM in D5W 55 ML IVPB SCH ×3 (05:18→21:25)
[2019-04-07 05:25] LABS: ANION GAP 6 mmol/L (5-15); BLOOD UREA NITROGEN 20 mg/dL (7-18); CALCIUM 8.1 MG/DL (8.5-10.1); CARBON DIOXIDE 27 MMOL/L (21-32); CHLORIDE 109 MMOL/L (98-107); CREATININE 1.2 MG/DL (0.55-1.30); POTASSIUM 4.4 MMOL/L (3.5-5.1); SODIUM 142 MMOL/L (136-145)
[2019-04-07] MEDS: NovoLOG Insulin Flexpen SUBQ SCH ×4 (06:30→21:00)
--- NOTE | 2019-04-07 06:31 | Consultation ---
DATE OF CONSULTATION: 04/06/2019 NOTE: POOR AUDIO CONSULTING PHYSICIAN: Len De Los Santos M.D. REFERRING PHYSICIAN: Clarence Sue M.D. REASON FOR CONSULTATION: The patient is a 68-year-old black female, referred by Dr. Clarence Sue in endocrinology consultation for evaluation and management of type 2 diabetes mellitus PERTINENT HISTORY:She was admitted with edema to lower extremities, and was transferred to [facility]. She has been diabetic forb several years on metformin 500 mg po b.i.d. FAMILY HISTORY: Unremarkable. PERSONAL HISTORY: Unremarkable. REVIEW OF SYSTEMS: Unremarkable. PHYSICAL EXAMINATION: GENERAL: The patient in no acute distress. VITAL SIGNS: Blood pressure 149/79, pulse 79, respiratory rate 20, and temperature 98.0_ degrees. HEAD AND NECK: Unremarkable. LUNGS: Clear. HEART: Heart sounds regular. ABDOMEN: Obese. Bowel sounds present. EXTREMITIES: 3+ edema. NEUROLOGICAL: Cranial .motor aand sensory intact.Reflexes intact with toes downgoing to plantar stimulation. . INV-glucose 175 IMPRESSIONS:1.Diabetes Mellitus Type 2 2.Edema due to CHF or venous insufficiency PLANS>continue Metfomin 500 mg po BID with sliding scale Novolog QID ac and HS.Hba1c in am. Len De Los Santos M.D. DR: TRAVIS JOB#: [id number] CC: [facility]
--- NOTE | 2019-04-07 07:50 | NUR ---
HAND-OFF: Report given to CATA Bergeron.
[2019-04-07 08:00] VITALS: BP 157/73
--- NOTE | 2019-04-07 08:00 | NUR ---
NURSE NOTES: Pt. received in bed eating breakfast. AAOx4, no chest pain or SOB indicated at this time. PICC in upper right arm patent and intact. Head of bed elevated, side rails up, bed in the low and locked position and call light in reach.
[2019-04-07] MEDS: metFORMIN 500mg tab ORAL SCH ×2 (09:11→17:56)
[2019-04-07] MEDS: Losartan 50mg tab ORAL SCH (09:12)
[2019-04-07] MEDS: Heparin 5000 units/ml inj SUBQ SCH ×2 (09:15→21:46)
--- NOTE | 2019-04-07 09:30 | NUR ---
NURSE NOTES: Pt. requested 0900 heparin to be received in L upper arm.
[2019-04-07 12:00] VITALS: BP 121/81
--- NOTE | 2019-04-07 12:40 | Infectious Diseases Prog Note ---
Assessment/Plan Assessment/Plan Assessment: B/l heel ulcerations and pain; L heel and leg cellulitis -L ankle MRI: Superficial skin erosion in the region of MRI marker responding to stated clinical history of heel ulcer. Faint slightly increased STIR signal in the calcaneal tuberosity, without associated T1 abnormality. Most likely reactive, although very early osteomyelitis cannot be completely ruled out. Faint slightly increased her signal in the talus, likewise without associated T1 abnormality. Most likely reactive, but early osteomyelitis cannot be completely ruled out. Extensive edema of the subcutaneous fat, as described. Given stated clinical history, may be on the basis of cellulitis, but could also indicate edema of vasogenic/hemodynamic origin. Correlate with clinical findings -R foot MRI: No evidence of osteomyelitis demonstrated. Diffuse edema of the subcutaneous fat, may indicate cellulitis or edema due to hemodynamic causes. No focal fluid collection to suggest abscess -R foot xray: no acute fracture -L foot xray: Soft tissue swelling. No acute injury identified. Osteoarthritis -ESR 56,CRP 4.0 Afebrile No leukocytosis Dm2 HTN Plan: -Continue IV Ancef #2 (abx d #08/06-10) for cellulitis -upon discharge can be transition to PO Keflex -04/06 SP IV Vancomycin, ZOsyn #3 -f/u cx -Monitor CBC/CMP, temperatures Thank you for this consultation. Will continue to follow along with you. Discussed with RN. Subjective Allergies: Coded Allergies: SULFA (SULFONAMIDE ANTIBIOTICS) (Verified Allergy, Mild, hives, 04/06/19) Subjective afebrile no leukocytosis Objective Vital Signs Last 24 Hour Vital Signs Date Time Temp Pulse Resp B/P (MAP) Pulse Ox O2 Delivery O2 Flow Rate FiO2 04/07/19 09:12 72 157/73 04/07/19 09:12 157/73 04/07/19 08:00 98.6 72 18 157/73 (101) 98 04/07/19 04:00 98.6 74 18 151/73 (99) 98 04/07/19 00:00 98.4 79 20 158/76 (103) 98 04/06/19 22:06 149/78 04/06/19 21:00 Room Air 04/06/19 20:00 98.1 79 20 149/79 (102) 98 04/06/19 16:00 98.4 80 19 130/79 (96) 98 Height (Feet): 5 Height (Inches): 7.00 Weight (Pounds): 280 Objective GENERAL: The patient is well-developed and well-nourished obese female, in no apparent distress. HEENT: Eyes, pupils are equal and responsive to light and accommodation. Extraocular movements are intact. NECK: Supple without lymphadenopathy. CHEST: Lungs are clear to auscultation bilaterally without wheezes or rales. CARDIOVASCULAR: Regular rate. S1 and S2 normal without murmurs, rubs, or gallops. ABDOMEN: Soft, nontender, nondistended. Positive bowel sounds. No evidence of hepatosplenomegaly. Currently, no rebound or guarding noted. EXTREMITIES: Negative for clubbing, cyanosis, or edema. Microbiology Date/Time Source Procedure Growth Status 04/06/19 06:15 Urine,Clean Catch Urine Culture - Preliminary NO GROWTH AFTER 24 HOURS Resulted Laboratory Tests Test 04/07/19 04:50 White Blood Count 6.7 K/UL (4.8-10.8) Red Blood Count 3.43 M/UL (4.20-5.40) L Hemoglobin 8.5 G/DL (12.0-16.0) L Hematocrit 27.8 % (37.0-47.0) L Mean Corpuscular Volume 81 FL (80-99) Mean Corpuscular Hemoglobin 24.7 PG (27.0-31.0) L Mean Corpuscular Hemoglobin Concent 30.5 G/DL (32.0-36.0) L Red Cell Distribution Width 13.9 % (11.6-14.8) Platelet Count 221 K/UL (150-450) Mean Platelet Volume 6.8 FL (6.5-10.1) Neutrophils (%) (Auto) 61.1 % (45.0-75.0) Lymphocytes (%) (Auto) 27.7 % (20.0-45.0) Monocytes (%) (Auto) 6.6 % (1.0-10.0) Eosinophils (%) (Auto) 3.9 % (0.0-3.0) H Basophils (%) (Auto) 0.7 % (0.0-2.0) Sodium Level 142 MMOL/L (136-145) Potassium Level 4.4 MMOL/L (3.5-5.1) Chloride Level 109 MMOL/L (98-107) H Carbon Dioxide Level 27 MMOL/L (21-32) Anion Gap 6 mmol/L (5-15) Blood Urea Nitrogen 20 mg/dL (7-18) H Creatinine 1.2 MG/DL (0.55-1.30) Estimat Glomerular Filtration Rate 54.2 mL/min (>60) Glucose Level 117 MG/DL (74-106) H Hemoglobin A1c 6.4 % (4.3-6.0) H Calcium Level 8.1 MG/DL (8.5-10.1) L Current Medications Medications (Trade) Dose Ordered Sig/Isak Route PRN Reason Start Time Stop Time Status Last Admin Dose Admin Acetaminophen (Tylenol) 650 mg Q4H PRN ORAL Mild Pain (Pain Scale 1-3) 04/04/19 12:45 05/04/19 12:44 Acetaminophen (Tylenol) 650 mg Q4H PRN ORAL fever 04/04/19 13:00 05/04/19 12:59 Albuterol/ Ipratropium (Albuterol/ Ipratropium) 3 ml Q4H PRN HHN Shortness of Breath 04/04/19 13:00 04/09/19 12:59 Amlodipine Besylate (Norvasc) 10 mg DAILY ORAL 04/05/19 09:00 05/05/19 08:59 04/07/19 09:12 Cefazolin Sodium 1 gm/Dextrose 55 ml @ 110 mls/hr Q8HR IVPB 04/06/19 22:00 04/13/19 21:59 04/07/19 05:18 Chlorhexidine Gluconate (Autumn-Hex 2%) 1 applic DAILY@2000 TOPIC 04/05/19 20:00 05/05/19 19:59 04/06/19 22:05 Clonazepam (KlonoPIN) 0.5 mg DAILYPRN PRN ORAL For Anxiety 04/04/19 13:45 04/11/19 13:44 Clonidine HCl (Catapres Tab) 0.1 mg Q4H PRN ORAL sbp more than 160 04/04/19 13:00 05/04/19 12:59 04/04/19 13:37 Clonidine HCl (Catapres Tab) 0.1 mg QHS ORAL 04/05/19 21:00 05/05/19 20:59 04/06/19 22:06 Dextrose (Dextrose 50%) 25 ml Q30M PRN IV Hypoglycemia 04/04/19 13:00 05/04/19 12:59 Dextrose (Dextrose 50%) 50 ml Q30M PRN IV Hypoglycemia 04/04/19 13:00 05/04/19 12:59 Diphenhydramine HCl (Benadryl) 25 mg Q6H PRN ORAL Itching/Pruritis 04/04/19 12:45 05/04/19 12:44 04/07/19 12:01 Heparin Sodium (Porcine) (Heparin 5000 units/ml) 5,000 units EVERY 12 HOURS SUBQ 04/04/19 21:00 05/04/19 20:59 04/07/19 09:15 Insulin Aspart (NovoLOG) BEFORE MEALS AND HS SUBQ 04/04/19 16:30 05/04/19 16:29 04/05/19 20:18 Losartan Potassium (Cozaar) 50 mg DAILY ORAL 04/05/19 09:00 05/05/19 08:59 04/07/19 09:12 Metformin HCl (Glucophage) 500 mg TWICE A DAY ORAL 04/04/19 18:00 05/04/19 17:59 04/07/19 09:11 Morphine Sulfate (Morphine Sulfate) 2 mg Q4H PRN IVP severe pain 7-10 04/04/19 13:00 04/11/19 12:59 04/06/19 18:18 Nitroglycerin (Ntg) 0.4 mg Q5M X 3 DOSES PRN SL Prn Chest Pain 04/04/19 13:00 05/04/19 12:59 Ondansetron HCl (Zofran) 4 mg Q6H PRN IVP Nausea & Vomiting 04/04/19 13:00 05/04/19 12:59 Oxycodone/ Acetaminophen (Percocet 10/325) 1 tab Q4H PRN ORAL pain 4-7 04/04/19 13:00 04/11/19 12:59 04/07/19 12:02 Pantoprazole (Protonix) 40 mg DAILY ORAL 04/05/19 09:00 05/05/19 08:59 04/07/19 09:11 Polyethylene Glycol (Miralax) 17 gm HSPRN PRN ORAL Constipation 04/04/19 13:00 05/04/19 12:59 Temazepam (Restoril) 15 mg HSPRN PRN ORAL Insomnia 04/04/19 13:00 04/11/19 12:59 Natalie Rod M.D. Apr 07, 2019 12:40
--- NOTE | 2019-04-07 14:26 | NUR ---
NURSE NOTES: Dressings changed, photographs taken.
--- NOTE | 2019-04-07 15:10 | Internal Med Progress Note ---
Subjective Date of Service: Apr 07, 2019 Physician Name Milan Limon Attending Physician Clarence Sue MD Current Medications Medications (Trade) Dose Ordered Sig/Isak Route PRN Reason Start Time Stop Time Status Last Admin Dose Admin Acetaminophen (Tylenol) 650 mg Q4H PRN ORAL Mild Pain (Pain Scale 1-3) 04/04/19 12:45 05/04/19 12:44 Acetaminophen (Tylenol) 650 mg Q4H PRN ORAL fever 04/04/19 13:00 05/04/19 12:59 Albuterol/ Ipratropium (Albuterol/ Ipratropium) 3 ml Q4H PRN HHN Shortness of Breath 04/04/19 13:00 04/09/19 12:59 Amlodipine Besylate (Norvasc) 10 mg DAILY ORAL 04/05/19 09:00 05/05/19 08:59 04/07/19 09:12 Cefazolin Sodium 1 gm/Dextrose 55 ml @ 110 mls/hr Q8HR IVPB 04/06/19 22:00 04/13/19 21:59 04/07/19 13:56 Chlorhexidine Gluconate (Autumn-Hex 2%) 1 applic DAILY@2000 TOPIC 04/05/19 20:00 05/05/19 19:59 04/06/19 22:05 Clonazepam (KlonoPIN) 0.5 mg DAILYPRN PRN ORAL For Anxiety 04/04/19 13:45 04/11/19 13:44 Clonidine HCl (Catapres Tab) 0.1 mg Q4H PRN ORAL sbp more than 160 04/04/19 13:00 05/04/19 12:59 04/04/19 13:37 Clonidine HCl (Catapres Tab) 0.1 mg QHS ORAL 04/05/19 21:00 05/05/19 20:59 04/06/19 22:06 Dextrose (Dextrose 50%) 25 ml Q30M PRN IV Hypoglycemia 04/04/19 13:00 05/04/19 12:59 Dextrose (Dextrose 50%) 50 ml Q30M PRN IV Hypoglycemia 04/04/19 13:00 05/04/19 12:59 Diphenhydramine HCl (Benadryl) 25 mg Q6H PRN ORAL Itching/Pruritis 04/04/19 12:45 05/04/19 12:44 04/07/19 12:01 Heparin Sodium (Porcine) (Heparin 5000 units/ml) 5,000 units EVERY 12 HOURS SUBQ 04/04/19 21:00 05/04/19 20:59 04/07/19 09:15 Insulin Aspart (NovoLOG) BEFORE MEALS AND HS SUBQ 04/04/19 16:30 05/04/19 16:29 04/05/19 20:18 Losartan Potassium (Cozaar) 50 mg DAILY ORAL 04/05/19 09:00 05/05/19 08:59 04/07/19 09:12 Metformin HCl (Glucophage) 500 mg TWICE A DAY ORAL 04/04/19 18:00 05/04/19 17:59 04/07/19 09:11 Morphine Sulfate (Morphine Sulfate) 2 mg Q4H PRN IVP severe pain 7-10 04/04/19 13:00 04/11/19 12:59 04/06/19 18:18 Nitroglycerin (Ntg) 0.4 mg Q5M X 3 DOSES PRN SL Prn Chest Pain 04/04/19 13:00 05/04/19 12:59 Ondansetron HCl (Zofran) 4 mg Q6H PRN IVP Nausea & Vomiting 04/04/19 13:00 05/04/19 12:59 Oxycodone/ Acetaminophen (Percocet 10/325) 1 tab Q4H PRN ORAL pain 4-7 04/04/19 13:00 04/11/19 12:59 04/07/19 12:02 Pantoprazole (Protonix) 40 mg DAILY ORAL 04/05/19 09:00 05/05/19 08:59 04/07/19 09:11 Polyethylene Glycol (Miralax) 17 gm HSPRN PRN ORAL Constipation 04/04/19 13:00 05/04/19 12:59 Temazepam (Restoril) 15 mg HSPRN PRN ORAL Insomnia 04/04/19 13:00 04/11/19 12:59 Allergies: Coded Allergies: SULFA (SULFONAMIDE ANTIBIOTICS) (Verified Allergy, Mild, hives, 04/06/19) ROS Limited/Unobtainable: No Constitutional: Reports: no symptoms HEENT: Reports: no symptoms Cardiovascular: Reports: no symptoms Respiratory: Reports: no symptoms Gastrointestinal/Abdominal: Reports: no symptoms Genitourinary: Reports: no symptoms Neurologic/Psychiatric: Reports: no symptoms Subjective 68 YO F admitted with bilateral heel pain. Now left diabetic foot ulcer. Cover for Int Ivan-Dr Sue Objective Last Vital Signs Date Time Temp Pulse Resp B/P (MAP) Pulse Ox O2 Delivery O2 Flow Rate FiO2 04/07/19 11:00 Room Air 04/07/19 09:12 72 157/73 04/07/19 08:00 98.6 18 98 Laboratory Tests Test 04/07/19 04:50 White Blood Count 6.7 K/UL (4.8-10.8) Red Blood Count 3.43 M/UL (4.20-5.40) L Hemoglobin 8.5 G/DL (12.0-16.0) L Hematocrit 27.8 % (37.0-47.0) L Mean Corpuscular Volume 81 FL (80-99) Mean Corpuscular Hemoglobin 24.7 PG (27.0-31.0) L Mean Corpuscular Hemoglobin Concent 30.5 G/DL (32.0-36.0) L Red Cell Distribution Width 13.9 % (11.6-14.8) Platelet Count 221 K/UL (150-450) Mean Platelet Volume 6.8 FL (6.5-10.1) Neutrophils (%) (Auto) 61.1 % (45.0-75.0) Lymphocytes (%) (Auto) 27.7 % (20.0-45.0) Monocytes (%) (Auto) 6.6 % (1.0-10.0) Eosinophils (%) (Auto) 3.9 % (0.0-3.0) H Basophils (%) (Auto) 0.7 % (0.0-2.0) Sodium Level 142 MMOL/L (136-145) Potassium Level 4.4 MMOL/L (3.5-5.1) Chloride Level 109 MMOL/L (98-107) H Carbon Dioxide Level 27 MMOL/L (21-32) Anion Gap 6 mmol/L (5-15) Blood Urea Nitrogen 20 mg/dL (7-18) H Creatinine 1.2 MG/DL (0.55-1.30) Estimat Glomerular Filtration Rate 54.2 mL/min (>60) Glucose Level 117 MG/DL (74-106) H Hemoglobin A1c 6.4 % (4.3-6.0) H Calcium Level 8.1 MG/DL (8.5-10.1) L Microbiology Date/Time Source Procedure Growth Status 04/06/19 06:15 Urine,Clean Catch Urine Culture - Preliminary NO GROWTH AFTER 24 HOURS Resulted Intake and Output 04/06/19 04/07/19 19:00 07:00 Intake Total 360 ml Balance 360 ml Intake Oral 360 ml # Voids 3 1 Objective PHYSICAL EXAMINATION: GENERAL: The patient is well-developed and well-nourished obese female, in no apparent distress. HEENT: Eyes, pupils are equal and responsive to light and accommodation. Extraocular movements are intact. NECK: Supple without lymphadenopathy. CHEST: Lungs are clear to auscultation bilaterally without wheezes or rales. CARDIOVASCULAR: Regular rate. S1 and S2 normal without murmurs, rubs, or gallops. ABDOMEN: Soft, nontender, nondistended. Positive bowel sounds. No evidence of hepatosplenomegaly. Currently, no rebound or guarding noted. EXTREMITIES: Negative for clubbing, cyanosis, or edema. RECTAL/GENITAL: Not performed. NEUROLOGIC: Cranial nerves II through XII are grossly intact without focal deficits. Motor strength is 5/5 bilaterally. Deep tendon reflexes are 2+ plantar. Assessment/Plan Assessment/Plan ASSESSMENT: This is a 68-year-old female. 1. Diabetic left heel ulcer. 2. Diabetes type 2. 3. Hypertension. 4. Cellulitis left leg TREATMENT: 1. Left diabetic foot ulcer. A Podiatry consultation has been obtained with Dr. Hoyt. We will follow recommendations of Podiatry. An MRI of bilateral feet does not indicate acute osteomyelitis. ABX=ancef per ID=Dr Rod 2. Diabetes type 2. NovoLog sliding scale has been instituted. 3. Hypertension. The patient has been started empirically on lisinopril. Milan Limon MD Apr 07, 2019 15:10
--- NOTE | 2019-04-07 15:33 | NUR ---
PT Note Patient is unavailable for treatment; was with RN for dressing changes.
[2019-04-07 16:00] VITALS: BP 128/84
--- NOTE | 2019-04-07 19:10 | NUR ---
HAND-OFF: Report given to CATA Chavez.
--- NOTE | 2019-04-07 19:15 | NUR ---
NURSE NOTES: Patient is awake, in bed and alert x4. On room air with no signs of SOB or distress. PICC noted in KAN, patent and intact. Bed locked and in lowest position. HOB elevated. Call light in reach. Will continue to monitor the patient.
[2019-04-07 20:00] VITALS: BP 126/65
--- NOTE | 2019-04-07 21:13 | Pulmonology Progress Note ---
Assessment/Plan Problems: (1) Diabetic foot ulcer (2) Elephantiasis (3) Severe anemia (4) Diabetes mellitus (5) Morbid obesity with BMI of 40.0-44.9, adult (6) Cellulitis Assessment/Plan all reviewed f/u cultures f/u MRI. negative iv abx anemia w/u. one dose of IV Venofer. sliding scale diabetic diet Subjective HEENT: Repors: no symptoms Respiratory: Reports: no symptoms Allergies: Coded Allergies: SULFA (SULFONAMIDE ANTIBIOTICS) (Verified Allergy, Mild, hives, 04/06/19) Objective Last 24 Hour Vital Signs Date Time Temp Pulse Resp B/P (MAP) Pulse Ox O2 Delivery O2 Flow Rate FiO2 04/07/19 20:18 Room Air 04/07/19 20:00 97.0 77 18 126/65 (85) 95 04/07/19 16:00 97.7 77 18 128/84 (99) 98 04/07/19 12:00 97.8 73 18 121/81 (94) 97 04/07/19 11:00 Room Air 04/07/19 09:12 72 157/73 04/07/19 09:12 157/73 04/07/19 08:00 98.6 72 18 157/73 (101) 98 04/07/19 04:00 98.6 74 18 151/73 (99) 98 04/07/19 00:00 98.4 79 20 158/76 (103) 98 04/06/19 22:06 149/78 Intake and Output 04/06/19 04/07/19 18:59 06:59 Intake Total 360 ml Balance 360 ml Intake Oral 360 ml # Voids 3 1 Objective General Appearance: WD/WN, no apparent distress Lines, tubes and drains: peripheral HEENT: normocephalic, atraumatic Neck: non-tender, normal alignment Respiratory/Chest: chest wall non-tender, lungs clear Breasts: no masses Cardiovascular/Chest: normal peripheral pulses Abdomen: non tender Extremities: normal range of motion Skin Exam: normal pigmentation Microbiology Date/Time Source Procedure Growth Status 04/06/19 06:15 Urine,Clean Catch Urine Culture - Preliminary NO GROWTH AFTER 24 HOURS Resulted Laboratory Tests 04/07/19 04:50: White Blood Count 6.7, Red Blood Count 3.43L, Hemoglobin 8.5L, Hematocrit 27.8L , Mean Corpuscular Volume 81, Mean Corpuscular Hemoglobin 24.7L, Mean Corpuscular Hemoglobin Concent 30.5L, Red Cell Distribution Width 13.9, Platelet Count 221, Mean Platelet Volume 6.8, Neutrophils (%) (Auto) 61.1, Lymphocytes (%) (Auto) 27.7, Monocytes (%) (Auto) 6.6, Eosinophils (%) (Auto) 3.9H, Basophils (%) (Auto) 0.7, Sodium Level 142, Potassium Level 4.4, Chloride Level 109H, Carbon Dioxide Level 27, Anion Gap 6, Blood Urea Nitrogen 20H, Creatinine 1.2, Estimat Glomerular Filtration Rate 54.2, Glucose Level 117H, Hemoglobin A1c 6.4H, Calcium Level 8.1L Current Medications Medications (Trade) Dose Ordered Sig/Isak Route PRN Reason Start Time Stop Time Status Last Admin Dose Admin Acetaminophen (Tylenol) 650 mg Q4H PRN ORAL Mild Pain (Pain Scale 1-3) 04/04/19 12:45 05/04/19 12:44 Acetaminophen (Tylenol) 650 mg Q4H PRN ORAL fever 04/04/19 13:00 05/04/19 12:59 Albuterol/ Ipratropium (Albuterol/ Ipratropium) 3 ml Q4H PRN HHN Shortness of Breath 04/04/19 13:00 04/09/19 12:59 Amlodipine Besylate (Norvasc) 10 mg DAILY ORAL 04/05/19 09:00 05/05/19 08:59 04/07/19 09:12 Cefazolin Sodium 1 gm/Dextrose 55 ml @ 110 mls/hr Q8HR IVPB 04/06/19 22:00 04/13/19 21:59 04/07/19 13:56 Chlorhexidine Gluconate (Autumn-Hex 2%) 1 applic DAILY@2000 TOPIC 04/05/19 20:00 05/05/19 19:59 04/06/19 22:05 Clonazepam (KlonoPIN) 0.5 mg DAILYPRN PRN ORAL For Anxiety 04/04/19 13:45 04/11/19 13:44 Clonidine HCl (Catapres Tab) 0.1 mg Q4H PRN ORAL sbp more than 160 04/04/19 13:00 05/04/19 12:59 12/4/19 13:37 Clonidine HCl (Catapres Tab) 0.1 mg QHS ORAL 04/05/19 21:00 05/05/19 20:59 04/06/19 22:06 Dextrose (Dextrose 50%) 25 ml Q30M PRN IV Hypoglycemia 04/04/19 13:00 05/04/19 12:59 Dextrose (Dextrose 50%) 50 ml Q30M PRN IV Hypoglycemia 04/04/19 13:00 05/04/19 12:59 Diphenhydramine HCl (Benadryl) 25 mg Q6H PRN ORAL Itching/Pruritis 04/04/19 12:45 05/04/19 12:44 04/07/19 12:01 Heparin Sodium (Porcine) (Heparin 5000 units/ml) 5,000 units EVERY 12 HOURS SUBQ 04/04/19 21:00 05/04/19 20:59 04/07/19 09:15 Insulin Aspart (NovoLOG) BEFORE MEALS AND HS SUBQ 04/04/19 16:30 05/04/19 16:29 04/05/19 20:18 Losartan Potassium (Cozaar) 50 mg DAILY ORAL 04/05/19 09:00 05/05/19 08:59 04/07/19 09:12 Metformin HCl (Glucophage) 500 mg TWICE A DAY ORAL 04/04/19 18:00 05/04/19 17:59 04/07/19 17:56 Morphine Sulfate (Morphine Sulfate) 2 mg Q4H PRN IVP severe pain 7-10 04/04/19 13:00 04/11/19 12:59 04/06/19 18:18 Nitroglycerin (Ntg) 0.4 mg Q5M X 3 DOSES PRN SL Prn Chest Pain 04/04/19 13:00 05/04/19 12:59 Ondansetron HCl (Zofran) 4 mg Q6H PRN IVP Nausea & Vomiting 04/04/19 13:00 05/04/19 12:59 Oxycodone/ Acetaminophen (Percocet 10/325) 1 tab Q4H PRN ORAL pain 4-7 04/04/19 13:00 04/11/19 12:59 04/07/19 12:02 Pantoprazole (Protonix) 40 mg DAILY ORAL 04/05/19 09:00 1/4/20 08:59 04/07/19 09:11 Polyethylene Glycol (Miralax) 17 gm HSPRN PRN ORAL Constipation 04/04/19 13:00 05/04/19 12:59 Temazepam (Restoril) 15 mg HSPRN PRN ORAL Insomnia 04/04/19 13:00 04/11/19 12:59 Mine Olguin MD Apr 07, 2019 21:13
--- NOTE | 2019-04-07 21:23 | NUR ---
NURSE NOTES: Patient's blood glucose 122. Patient refused insulin. Explained risks and benefits - pt verbalized understanding.
[2019-04-07] MEDS: Dyna-Hex 2% Top Sol 2oz TOPIC SCH (21:27)
[2019-04-07] MEDS: Morphine Sulfate 2mg/ml Inj(IV/IM USE ONLY) IVP PRN (21:28)
[2019-04-08] VITALS: BP 170/82
[2019-04-08 04:00] VITALS: BP 155/70
[2019-04-08] MEDS: ceFAZolin sod 1 GM in D5W 55 ML IVPB SCH ×3 (05:07→21:44)
[2019-04-08] MEDS: NovoLOG Insulin Flexpen SUBQ SCH ×4 (05:54→20:44)
[2019-04-08 06:00] LABS: BASOPHILS % (AUTO) 1.4 % (0.0-2.0); EOSINOPHILS % (AUTO) 3.1 % (0.0-3.0); HEMATOCRIT 27.9 % (37.0-47.0); HEMOGLOBIN 8.7 G/DL (12.0-16.0); LYMPHOCYTES % (AUTO) 28.3 % (20.0-45.0); MEAN CORPUSCULAR VOLUME 81 FL (80-99); MONOCYTES % (AUTO) 5.4 % (1.0-10.0); NEUTROPHILS % (AUTO) 61.9 % (45.0-75.0); PLATELET COUNT 196 K/UL (150-450); RED BLOOD COUNT 3.43 M/UL (4.20-5.40); RED CELL DISTRIBUTION WIDTH 13.7 % (11.6-14.8); WHITE BLOOD COUNT 6.9 K/UL (4.8-10.8)
[2019-04-08 06:10] LABS: ANION GAP -1 mmol/L (5-15); BLOOD UREA NITROGEN 18 mg/dL (7-18); CALCIUM 8.7 MG/DL (8.5-10.1); CARBON DIOXIDE 33 MMOL/L (21-32); CHLORIDE 107 MMOL/L (98-107); POTASSIUM 4.2 MMOL/L (3.5-5.1); SODIUM 139 MMOL/L (136-145)
[2019-04-08 08:00] VITALS: BP 155/71
--- NOTE | 2019-04-08 08:10 | NUR ---
HAND-OFF: Report given to CATA Mcclelland.
--- NOTE | 2019-04-08 08:11 | NUR ---
NURSE NOTES: Patient awake, alert x4; on room air, no sing of distress and shortness of breath; no sing of chest pain; PICC Right-Upper Arm double lumen, according to PM RNKathryn only the Red lumen is working and TKO; Pur[place] in place; side rails up x2, breaks engaged, bed at lowest position; call light within reach; will keep monitoring.
[2019-04-08] MEDS: Losartan 50mg tab ORAL SCH (09:16)
[2019-04-08] MEDS: metFORMIN 500mg tab ORAL SCH ×2 (09:16→17:12)
[2019-04-08] MEDS: Heparin 5000 units/ml inj SUBQ SCH ×2 (09:17→21:49)
[2019-04-08 12:00] VITALS: BP 153/77
--- NOTE | 2019-04-08 14:47 | Internal Med Progress Note ---
Subjective Date of Service: Apr 08, 2019 Physician Name Milan Limon Attending Physician Clarence Sue MD Current Medications Medications (Trade) Dose Ordered Sig/Siak Route PRN Reason Start Time Stop Time Status Last Admin Dose Admin Acetaminophen (Tylenol) 650 mg Q4H PRN ORAL Mild Pain (Pain Scale 1-3) 04/04/19 12:45 05/04/19 12:44 Acetaminophen (Tylenol) 650 mg Q4H PRN ORAL fever 04/04/19 13:00 05/04/19 12:59 Albuterol/ Ipratropium (Albuterol/ Ipratropium) 3 ml Q4H PRN HHN Shortness of Breath 04/04/19 13:00 04/09/19 12:59 Amlodipine Besylate (Norvasc) 10 mg DAILY ORAL 04/05/19 09:00 05/05/19 08:59 04/08/19 09:16 Cefazolin Sodium 1 gm/Dextrose 55 ml @ 110 mls/hr Q8HR IVPB 04/06/19 22:00 04/13/19 21:59 04/08/19 13:06 Chlorhexidine Gluconate (Autumn-Hex 2%) 1 applic DAILY@2000 TOPIC 04/05/19 20:00 05/05/19 19:59 04/07/19 21:27 Clonazepam (KlonoPIN) 0.5 mg DAILYPRN PRN ORAL For Anxiety 04/04/19 13:45 04/11/19 13:44 Clonidine HCl (Catapres Tab) 0.1 mg Q4H PRN ORAL sbp more than 160 04/04/19 13:00 05/04/19 12:59 04/08/19 00:33 Clonidine HCl (Catapres Tab) 0.1 mg QHS ORAL 04/05/19 21:00 05/05/19 20:59 04/07/19 21:25 Dextrose (Dextrose 50%) 25 ml Q30M PRN IV Hypoglycemia 04/04/19 13:00 05/04/19 12:59 Dextrose (Dextrose 50%) 50 ml Q30M PRN IV Hypoglycemia 04/04/19 13:00 05/04/19 12:59 Diphenhydramine HCl (Benadryl) 25 mg Q6H PRN ORAL Itching/Pruritis 04/04/19 12:45 05/04/19 12:44 04/07/19 12:01 Heparin Sodium (Porcine) (Heparin 5000 units/ml) 5,000 units EVERY 12 HOURS SUBQ 04/04/19 21:00 05/04/19 20:59 04/08/19 09:17 Insulin Aspart (NovoLOG) BEFORE MEALS AND HS SUBQ 04/04/19 16:30 05/04/19 16:29 04/05/19 20:18 Losartan Potassium (Cozaar) 50 mg DAILY ORAL 04/05/19 09:00 05/05/19 08:59 04/08/19 09:16 Metformin HCl (Glucophage) 500 mg TWICE A DAY ORAL 04/04/19 18:00 05/04/19 17:59 04/08/19 09:16 Morphine Sulfate (Morphine Sulfate) 2 mg Q4H PRN IVP severe pain 7-10 04/04/19 13:00 04/11/19 12:59 04/07/19 21:28 Nitroglycerin (Ntg) 0.4 mg Q5M X 3 DOSES PRN SL Prn Chest Pain 04/04/19 13:00 05/04/19 12:59 Ondansetron HCl (Zofran) 4 mg Q6H PRN IVP Nausea & Vomiting 04/04/19 13:00 05/04/19 12:59 Oxycodone/ Acetaminophen (Percocet 10/325) 1 tab Q4H PRN ORAL pain 4-7 04/04/19 13:00 04/11/19 12:59 04/07/19 12:02 Pantoprazole (Protonix) 40 mg DAILY ORAL 04/05/19 09:00 05/05/19 08:59 04/08/19 09:16 Polyethylene Glycol (Miralax) 17 gm HSPRN PRN ORAL Constipation 04/04/19 13:00 05/04/19 12:59 Temazepam (Restoril) 15 mg HSPRN PRN ORAL Insomnia 04/04/19 13:00 04/11/19 12:59 Allergies: Coded Allergies: SULFA (SULFONAMIDE ANTIBIOTICS) (Verified Allergy, Mild, hives, 04/06/19) ROS Limited/Unobtainable: No Constitutional: Reports: no symptoms HEENT: Reports: no symptoms Cardiovascular: Reports: no symptoms Respiratory: Reports: no symptoms Gastrointestinal/Abdominal: Reports: no symptoms Genitourinary: Reports: no symptoms Subjective 68 YO F admitted with bilateral heel pain. Now left diabetic foot ulcer. Cover for Int Ivan-Dr Sue Objective Last Vital Signs Date Time Temp Pulse Resp B/P (MAP) Pulse Ox O2 Delivery O2 Flow Rate FiO2 04/08/19 12:00 99.0 75 18 153/77 (102) 96 04/08/19 09:00 Room Air Laboratory Tests Test 04/08/19 05:28 White Blood Count 6.9 K/UL (4.8-10.8) Red Blood Count 3.43 M/UL (4.20-5.40) L Hemoglobin 8.7 G/DL (12.0-16.0) L Hematocrit 27.9 % (37.0-47.0) L Mean Corpuscular Volume 81 FL (80-99) Mean Corpuscular Hemoglobin 25.4 PG (27.0-31.0) L Mean Corpuscular Hemoglobin Concent 31.3 G/DL (32.0-36.0) L Red Cell Distribution Width 13.7 % (11.6-14.8) Platelet Count 196 K/UL (150-450) Mean Platelet Volume 6.1 FL (6.5-10.1) L Neutrophils (%) (Auto) 61.9 % (45.0-75.0) Lymphocytes (%) (Auto) 28.3 % (20.0-45.0) Monocytes (%) (Auto) 5.4 % (1.0-10.0) Eosinophils (%) (Auto) 3.1 % (0.0-3.0) H Basophils (%) (Auto) 1.4 % (0.0-2.0) Sodium Level 139 MMOL/L (136-145) Potassium Level 4.2 MMOL/L (3.5-5.1) Chloride Level 107 MMOL/L (98-107) Carbon Dioxide Level 33 MMOL/L (21-32) H Anion Gap -1 mmol/L (5-15) L Blood Urea Nitrogen 18 mg/dL (7-18) Creatinine 1.0 MG/DL (0.55-1.30) Estimat Glomerular Filtration Rate > 60 mL/min (>60) Glucose Level 93 MG/DL (74-106) Calcium Level 8.7 MG/DL (8.5-10.1) Microbiology Date/Time Source Procedure Growth Status 04/06/19 06:15 Urine,Clean Catch Urine Culture - Final Mixed Gram Positive Organism Complete Intake and Output 04/07/19 04/08/19 18:59 06:59 Intake Total 1315 ml 240 ml Balance 1315 ml 240 ml Intake Oral 1260 ml 240 ml IV Total 55 ml # Voids 8 2 Objective PHYSICAL EXAMINATION: GENERAL: The patient is well-developed and well-nourished obese female, in no apparent distress. HEENT: Eyes, pupils are equal and responsive to light and accommodation. Extraocular movements are intact. NECK: Supple without lymphadenopathy. CHEST: Lungs are clear to auscultation bilaterally without wheezes or rales. CARDIOVASCULAR: Regular rate. S1 and S2 normal without murmurs, rubs, or gallops. ABDOMEN: Soft, nontender, nondistended. Positive bowel sounds. No evidence of hepatosplenomegaly. Currently, no rebound or guarding noted. EXTREMITIES: Negative for clubbing, cyanosis, or edema. RECTAL/GENITAL: Not performed. NEUROLOGIC: Cranial nerves II through XII are grossly intact without focal deficits. Motor strength is 5/5 bilaterally. Deep tendon reflexes are 2+ plantar. Assessment/Plan Assessment/Plan ASSESSMENT: This is a 68-year-old female. 1. Diabetic left heel ulcer. 2. Diabetes type 2. 3. Hypertension. 4. Cellulitis left leg TREATMENT: 1. Left diabetic foot ulcer. A Podiatry consultation has been obtained with Dr. Hoyt. We will follow recommendations of Podiatry. An MRI of bilateral feet does not indicate acute osteomyelitis. ABX=ancef per ID=Dr Rod 2. Diabetes type 2. NovoLog sliding scale has been instituted. 3. Hypertension. The patient has been started empirically on lisinopril. 4. Discharge planning: [facility] Milan Limon MD Apr 08, 2019 14:47
[2019-04-08 16:00] VITALS: BP 164/79
--- NOTE | 2019-04-08 18:47 | NUR ---
NURSE NOTES: Patient is upset, first patient said didn't get a tray for dinner; she ordered food and the tray she got now wasn't the one she ordered; patient gave me another order of 2 [place] Ham/Cheese or [place]/Cheese sandwich with Hot tea. I called kitchen and left a voice message of the order. Waiting for tray.
--- NOTE | 2019-04-08 19:26 | NUR ---
NURSE NOTES: Patient is awake, in bed and alert x4. On room air with no signs of SOB or distress. PICC noted in KAN, patent and intact. Bed locked and in lowest position. HOB elevated. Bilat foot dressing dry and intact. Call light in reach. Will continue to monitor the patient.
--- NOTE | 2019-04-08 19:28 | NUR ---
HAND-OFF: Report given to CATA Chavez.
--- NOTE | 2019-04-08 19:53 | NUR ---
NURSE NOTES: Patient requested sandwich and hot tea for dinner. Provided sandwiches, hot tea and snacks. Will follow up with dietary.
[2019-04-08 20:00] VITALS: BP 173/84
[2019-04-08] MEDS: Dyna-Hex 2% Top Sol 2oz TOPIC SCH (20:00)
--- NOTE | 2019-04-08 21:37 | Pulmonology Progress Note ---
Assessment/Plan Problems: (1) Diabetic foot ulcer (2) Elephantiasis (3) Severe anemia (4) Diabetes mellitus (5) Morbid obesity with BMI of 40.0-44.9, adult (6) Cellulitis Assessment/Plan no new events iv abx sliding scale diabetic diet pt wants to go to a rehab facility Subjective ROS Limited/Unobtainable: No Constitutional: Reports: no symptoms HEENT: Repors: no symptoms Respiratory: Reports: no symptoms Allergies: Coded Allergies: SULFA (SULFONAMIDE ANTIBIOTICS) (Verified Allergy, Mild, hives, 04/06/19) Objective Last 24 Hour Vital Signs Date Time Temp Pulse Resp B/P (MAP) Pulse Ox O2 Delivery O2 Flow Rate FiO2 04/08/19 20:06 Room Air 04/08/19 20:00 98.5 85 16 173/84 (113) 94 04/08/19 17:12 164/79 04/08/19 16:46 99.0 04/08/19 16:00 98.4 81 19 164/79 (107) 98 04/08/19 12:00 99.0 75 18 153/77 (102) 96 04/08/19 09:16 90 155/71 04/08/19 09:16 155/71 04/08/19 09:00 Room Air 04/08/19 08:00 98.1 90 18 155/71 (99) 97 04/08/19 04:00 98.1 70 19 155/70 (98) 95 04/08/19 00:33 170/82 04/08/19 00:00 98.3 73 20 170/82 (111) 98 Intake and Output 04/07/19 04/08/19 19:00 07:00 Intake Total 1315 ml 240 ml Balance 1315 ml 240 ml Intake Oral 1260 ml 240 ml IV Total 55 ml # Voids 8 2 Objective General Appearance: WD/WN, no apparent distress Lines, tubes and drains: peripheral HEENT: normocephalic, atraumatic Neck: non-tender, normal alignment Respiratory/Chest: chest wall non-tender, lungs clear Breasts: no masses Cardiovascular/Chest: normal peripheral pulses Abdomen: non tender Extremities: normal range of motion Skin Exam: normal pigmentation Microbiology Date/Time Source Procedure Growth Status 04/06/19 06:15 Urine,Clean Catch Urine Culture - Final Mixed Gram Positive Organism Complete Laboratory Tests 04/08/19 05:28: White Blood Count 6.9, Red Blood Count 3.43L, Hemoglobin 8.7L, Hematocrit 27.9L , Mean Corpuscular Volume 81, Mean Corpuscular Hemoglobin 25.4L, Mean Corpuscular Hemoglobin Concent 31.3L, Red Cell Distribution Width 13.7, Platelet Count 196, Mean Platelet Volume 6.1L, Neutrophils (%) (Auto) 61.9, Lymphocytes (%) (Auto) 28.3, Monocytes (%) (Auto) 5.4, Eosinophils (%) (Auto) 3.1H, Basophils (%) (Auto) 1.4, Sodium Level 139, Potassium Level 4.2, Chloride Level 107, Carbon Dioxide Level 33H, Anion Gap -1L, Blood Urea Nitrogen 18, Creatinine 1.0, Estimat Glomerular Filtration Rate > 60, Glucose Level 93, Calcium Level 8.7 Current Medications Medications (Trade) Dose Ordered Sig/Isak Route PRN Reason Start Time Stop Time Status Last Admin Dose Admin Acetaminophen (Tylenol) 650 mg Q4H PRN ORAL Mild Pain (Pain Scale 1-3) 04/04/19 12:45 05/04/19 12:44 Acetaminophen (Tylenol) 650 mg Q4H PRN ORAL fever 04/04/19 13:00 05/04/19 12:59 Albuterol/ Ipratropium (Albuterol/ Ipratropium) 3 ml Q4H PRN HHN Shortness of Breath 04/04/19 13:00 04/09/19 12:59 Amlodipine Besylate (Norvasc) 10 mg DAILY ORAL 04/05/19 09:00 05/05/19 08:59 04/08/19 09:16 Cefazolin Sodium 1 gm/Dextrose 55 ml @ 110 mls/hr Q8HR IVPB 04/06/19 22:00 04/13/19 21:59 04/08/19 13:06 Chlorhexidine Gluconate (Autumn-Hex 2%) 1 applic DAILY@2000 TOPIC 04/05/19 20:00 05/05/19 19:59 04/07/19 21:27 Clonazepam (KlonoPIN) 0.5 mg DAILYPRN PRN ORAL For Anxiety 04/04/19 13:45 04/11/19 13:44 Clonidine HCl (Catapres Tab) 0.1 mg Q4H PRN ORAL sbp more than 160 04/04/19 13:00 05/04/19 12:59 04/08/19 17:12 Clonidine HCl (Catapres Tab) 0.1 mg QHS ORAL 04/05/19 21:00 05/05/19 20:59 04/07/19 21:25 Dextrose (Dextrose 50%) 25 ml Q30M PRN IV Hypoglycemia 04/04/19 13:00 05/04/19 12:59 Dextrose (Dextrose 50%) 50 ml Q30M PRN IV Hypoglycemia 04/04/19 13:00 05/04/19 12:59 Diphenhydramine HCl (Benadryl) 25 mg Q6H PRN ORAL Itching/Pruritis 04/04/19 12:45 05/04/19 12:44 04/08/19 16:16 Heparin Sodium (Porcine) (Heparin 5000 units/ml) 5,000 units EVERY 12 HOURS SUBQ 04/04/19 21:00 05/04/19 20:59 04/08/19 09:17 Insulin Aspart (NovoLOG) BEFORE MEALS AND HS SUBQ 04/04/19 16:30 05/04/19 16:29 04/05/19 20:18 Losartan Potassium (Cozaar) 50 mg DAILY ORAL 04/05/19 09:00 05/05/19 08:59 04/08/19 09:16 Metformin HCl (Glucophage) 500 mg TWICE A DAY ORAL 04/04/19 18:00 05/04/19 17:59 04/08/19 17:12 Morphine Sulfate (Morphine Sulfate) 2 mg Q4H PRN IVP severe pain 7-10 04/04/19 13:00 04/11/19 12:59 04/07/19 21:28 Nitroglycerin (Ntg) 0.4 mg Q5M X 3 DOSES PRN SL Prn Chest Pain 04/04/19 13:00 05/04/19 12:59 Ondansetron HCl (Zofran) 4 mg Q6H PRN IVP Nausea & Vomiting 04/04/19 13:00 05/04/19 12:59 Oxycodone/ Acetaminophen (Percocet 10/325) 1 tab Q4H PRN ORAL pain 4-7 04/04/19 13:00 04/11/19 12:59 04/08/19 16:16 Pantoprazole (Protonix) 40 mg DAILY ORAL 04/05/19 09:00 05/05/19 08:59 04/08/19 09:16 Polyethylene Glycol (Miralax) 17 gm HSPRN PRN ORAL Constipation 04/04/19 13:00 05/04/19 12:59 Temazepam (Restoril) 15 mg HSPRN PRN ORAL Insomnia 04/04/19 13:00 04/11/19 12:59 Mine Olguin MD Apr 08, 2019 21:37
[2019-04-09] VITALS: BP 152/76
[2019-04-09 04:00] VITALS: BP 141/66
[2019-04-09] MEDS: ceFAZolin sod 1 GM in D5W 55 ML IVPB SCH ×3 (05:49→22:35)
[2019-04-09] MEDS: NovoLOG Insulin Flexpen SUBQ SCH ×4 (06:23→22:35)
[2019-04-09 06:36] LABS: EOSINOPHILS % (AUTO) 3.4 % (0.0-3.0); HEMATOCRIT 27.3 % (37.0-47.0); HEMOGLOBIN 8.7 G/DL (12.0-16.0); LYMPHOCYTES % (AUTO) 31.5 % (20.0-45.0); MEAN CORPUSCULAR VOLUME 81 FL (80-99); MONOCYTES % (AUTO) 6.1 % (1.0-10.0); PLATELET COUNT 209 K/UL (150-450); RED BLOOD COUNT 3.37 M/UL (4.20-5.40); WHITE BLOOD COUNT 7.2 K/UL (4.8-10.8)
--- NOTE | 2019-04-09 06:43 | General Progress Note ---
Assessment/Plan Problem List: (1) Diabetic foot ulcer associated with type 2 diabetes mellitus ICD Codes: E11.621 - Type 2 diabetes mellitus with foot ulcer; L97.509 - Non- pressure chronic ulcer of other part of unspecified foot with unspecified severity SNOMED: 012272034, 5077592700626 (2) Severe anemia ICD Codes: D64.9 - Anemia, unspecified SNOMED: 432358483 (3) Morbid obesity with BMI of 40.0-44.9, adult ICD Codes: E66.01 - Morbid (severe) obesity due to excess calories; Z68.41 - Body mass index (BMI) 40.0-44.9, adult SNOMED: 275823036, 091724505, [id number] Assessment/Plan: no need for basal insulin for now continue NISS ac / hs Subjective Allergies: Coded Allergies: SULFA (SULFONAMIDE ANTIBIOTICS) (Verified Allergy, Mild, hives, 04/06/19) Subjective events noted fair glycemic control Item Value Date Time Bedside Blood Glucose 122 mg/dl H 04/09/19 0623 Bedside Blood Glucose 132 mg/dl H 04/08/19 2044 Bedside Blood Glucose 113 mg/dl 04/08/19 1630 Bedside Blood Glucose 99 mg/dl 04/08/19 1130 Bedside Blood Glucose 91 mg/dl 04/08/19 0554 Objective Last 24 Hour Vital Signs Date Time Temp Pulse Resp B/P (MAP) Pulse Ox O2 Delivery O2 Flow Rate FiO2 04/09/19 00:00 97.5 68 16 152/76 (101) 96 04/08/19 22:38 173/84 04/08/19 20:06 Room Air 04/08/19 20:00 98.5 85 16 173/84 (113) 94 04/08/19 17:12 164/79 04/08/19 16:46 99.0 04/08/19 16:00 98.4 81 19 164/79 (107) 98 04/08/19 12:00 99.0 75 18 153/77 (102) 96 04/08/19 09:16 90 155/71 04/08/19 09:16 155/71 04/08/19 09:00 Room Air 04/08/19 08:00 98.1 90 18 155/71 (99) 97 Intake and Output 04/08/19 04/09/19 18:59 06:59 Intake Total 1150 ml 1040 ml Output Total 251 ml Balance 1150 ml 789 ml Intake Oral 1040 ml 1040 ml IV Total 110 ml Output Urine Total 250 ml Stool Total 1 ml # Voids 6 Laboratory Tests 04/09/19 05:40: White Blood Count [Pending], Red Blood Count [Pending], Hemoglobin [Pending], Hematocrit [Pending], Mean Corpuscular Volume [Pending], Mean Corpuscular Hemoglobin [Pending], Mean Corpuscular Hemoglobin Concent [Pending], Red Cell Distribution Width [Pending], Platelet Count [Pending], Mean Platelet Volume [ Pending], Neutrophils (%) (Auto) [Pending], Lymphocytes (%) (Auto) [Pending], Monocytes (%) (Auto) [Pending], Eosinophils (%) (Auto) [Pending], Basophils (%) (Auto) [Pending], Sodium Level [Pending], Potassium Level [Pending], Chloride Level [Pending], Carbon Dioxide Level [Pending], Blood Urea Nitrogen [Pending], Creatinine [Pending], Estimat Glomerular Filtration Rate [Pending], Glucose Level [Pending], Calcium Level [Pending] Height (Feet): 5 Height (Inches): 7.00 Weight (Pounds): 280 General Appearance: no apparent distress Neck: normal alignment Cardiovascular: normal rate Respiratory/Chest: lungs clear Abdomen: normal bowel sounds Objective Current Medications Medications (Trade) Dose Ordered Sig/Isak Route PRN Reason Start Time Stop Time Status Last Admin Dose Admin Acetaminophen (Tylenol) 650 mg Q4H PRN ORAL Mild Pain (Pain Scale 1-3) 04/04/19 12:45 05/04/19 12:44 Acetaminophen (Tylenol) 650 mg Q4H PRN ORAL fever 04/04/19 13:00 05/04/19 12:59 Albuterol/ Ipratropium (Albuterol/ Ipratropium) 3 ml Q4H PRN HHN Shortness of Breath 04/04/19 13:00 04/09/19 12:59 Amlodipine Besylate (Norvasc) 10 mg DAILY ORAL 04/05/19 09:00 05/05/19 08:59 04/08/19 09:16 Cefazolin Sodium 1 gm/Dextrose 55 ml @ 110 mls/hr Q8HR IVPB 04/06/19 22:00 04/13/19 21:59 04/09/19 05:49 Chlorhexidine Gluconate (Autumn-Hex 2%) 1 applic DAILY@2000 TOPIC 04/05/19 20:00 05/05/19 19:59 04/07/19 21:27 Clonazepam (KlonoPIN) 0.5 mg DAILYPRN PRN ORAL For Anxiety 04/04/19 13:45 04/11/19 13:44 Clonidine HCl (Catapres Tab) 0.1 mg Q4H PRN ORAL sbp more than 160 04/04/19 13:00 05/04/19 12:59 04/08/19 17:12 Clonidine HCl (Catapres Tab) 0.1 mg QHS ORAL 04/05/19 21:00 05/05/19 20:59 04/08/19 22:38 Dextrose (Dextrose 50%) 25 ml Q30M PRN IV Hypoglycemia 04/04/19 13:00 05/04/19 12:59 Dextrose (Dextrose 50%) 50 ml Q30M PRN IV Hypoglycemia 04/04/19 13:00 05/04/19 12:59 Diphenhydramine HCl (Benadryl) 25 mg Q6H PRN ORAL Itching/Pruritis 04/04/19 12:45 05/04/19 12:44 04/08/19 22:37 Heparin Sodium (Porcine) (Heparin 5000 units/ml) 5,000 units EVERY 12 HOURS SUBQ 04/04/19 21:00 05/04/19 20:59 04/08/19 21:49 Insulin Aspart (NovoLOG) BEFORE MEALS AND HS SUBQ 04/04/19 16:30 05/04/19 16:29 04/05/19 20:18 Losartan Potassium (Cozaar) 50 mg DAILY ORAL 04/05/19 09:00 05/05/19 08:59 04/08/19 09:16 Metformin HCl (Glucophage) 500 mg TWICE A DAY ORAL 04/04/19 18:00 05/04/19 17:59 04/08/19 17:12 Morphine Sulfate (Morphine Sulfate) 2 mg Q4H PRN IVP severe pain 7-10 04/04/19 13:00 04/11/19 12:59 12/7/19 21:28 Nitroglycerin (Ntg) 0.4 mg Q5M X 3 DOSES PRN SL Prn Chest Pain 04/04/19 13:00 05/04/19 12:59 Ondansetron HCl (Zofran) 4 mg Q6H PRN IVP Nausea & Vomiting 04/04/19 13:00 05/04/19 12:59 Oxycodone/ Acetaminophen (Percocet 10/325) 1 tab Q4H PRN ORAL pain 4-7 04/04/19 13:00 04/11/19 12:59 04/08/19 22:38 Pantoprazole (Protonix) 40 mg DAILY ORAL 04/05/19 09:00 05/05/19 08:59 04/08/19 09:16 Polyethylene Glycol (Miralax) 17 gm HSPRN PRN ORAL Constipation 04/04/19 13:00 05/04/19 12:59 Temazepam (Restoril) 15 mg HSPRN PRN ORAL Insomnia 04/04/19 13:00 04/11/19 12:59 Josesito Ovalle MD Apr 09, 2019 06:42
[2019-04-09 06:57] LABS: ANION GAP 5 mmol/L (5-15); BLOOD UREA NITROGEN 18 mg/dL (7-18); CALCIUM 8.7 MG/DL (8.5-10.1); CARBON DIOXIDE 30 MMOL/L (21-32); CHLORIDE 107 MMOL/L (98-107); CREATININE 1.1 MG/DL (0.55-1.30); POTASSIUM 4.2 MMOL/L (3.5-5.1); SODIUM 142 MMOL/L (136-145)
--- NOTE | 2019-04-09 07:37 | NUR ---
HAND-OFF: Report given to CATA Bergeron.
--- NOTE | 2019-04-09 07:45 | NUR ---
NURSE NOTES: Received patient on bed, awake. PICC line intact only port patent. PICC and feet dressings dry and intact. Purewick intact and patent. Bed in low and locked position, call light in reach. No signs of respiraotru distress or pain. Room board updated, will continue to monitor.
[2019-04-09 08:00] VITALS: BP 183/80
[2019-04-09] MEDS: Losartan 50mg tab ORAL SCH (09:00)
[2019-04-09] MEDS: metFORMIN 500mg tab ORAL SCH ×2 (09:00→17:08)
[2019-04-09] MEDS: Heparin 5000 units/ml inj SUBQ SCH ×2 (09:01→22:35)
[2019-04-09 12:00] VITALS: BP 158/73
--- NOTE | 2019-04-09 12:10 | NUR ---
RD ASSESSMENT & RECOMMENDATIONS SEE CARE ACTIVITY FOR COMPLETE ASSESSMENT DAILY ESTIMATED NEEDS: Needs based on Obesity, Wound/ 78kg abw 20-25 kcals/kg 1115-1695 total kcals 1.25-1.5 g protein/kg 97-117 g total protein 25-30 mL/kg 2570-1111 total fluid mLs NUTRITION DIAGNOSIS: * Increased prot intake needs R/T wound healing as evidenced by admitted w/ diabetic BL foot ulcer. * Morbid obesity R/T inactive lifestyle due to BL foot ulcers and excessive energy intake as evidenced by BMI >40. CURRENT DIET:CCHO VERY HIGH PO DIET RECOMMENDATIONS: CCHO LOW, CARDIAC + double protein portions ADDITIONAL RECOMMENDATIONS: * Calibrated bedscale wt for accurate CBW * Wound healing: add MVI x 1, Vit C 250mg QD : Alon 1pkt BID * Re-attempt diet education on wt loss as able -> not receptive on 04/09 * Folic acid 1mg QD (low folate 8.5) * Monitor lytes, replete as needed (mag 1.5 04/06, check f/up mag)
--- NOTE | 2019-04-09 13:10 | Infectious Diseases Prog Note ---
Assessment/Plan Assessment/Plan Assessment: B/l heel ulcerations and pain; L heel and leg cellulitis; improving -L ankle MRI: Superficial skin erosion in the region of MRI marker responding to stated clinical history of heel ulcer. Faint slightly increased STIR signal in the calcaneal tuberosity, without associated T1 abnormality. Most likely reactive, although very early osteomyelitis cannot be completely ruled out. Faint slightly increased her signal in the talus, likewise without associated T1 abnormality. Most likely reactive, but early osteomyelitis cannot be completely ruled out. Extensive edema of the subcutaneous fat, as described. Given stated clinical history, may be on the basis of cellulitis, but could also indicate edema of vasogenic/hemodynamic origin. Correlate with clinical findings -R foot MRI: No evidence of osteomyelitis demonstrated. Diffuse edema of the subcutaneous fat, may indicate cellulitis or edema due to hemodynamic causes. No focal fluid collection to suggest abscess -R foot xray: no acute fracture -L foot xray: Soft tissue swelling. No acute injury identified. Osteoarthritis -ESR 56,CRP 4.0 Afebrile No leukocytosis Dm2 HTN Plan: -Continue IV Ancef #4 (abx d #/7-10) for cellulitis -upon discharge can be transition to PO Keflex -04/06 SP IV Vancomycin, ZOsyn #3 -f/u cx -Monitor CBC/CMP, temperatures Thank you for this consultation. Will continue to follow along with you. Discussed with RN. Subjective Allergies: Coded Allergies: SULFA (SULFONAMIDE ANTIBIOTICS) (Verified Allergy, Mild, hives, 04/06/19) Subjective afebrile no leukocytosis Objective Vital Signs Last 24 Hour Vital Signs Date Time Temp Pulse Resp B/P (MAP) Pulse Ox O2 Delivery O2 Flow Rate FiO2 04/09/19 09:00 Room Air 04/09/19 09:00 70 183/80 04/09/19 09:00 183/80 04/09/19 08:00 98.3 70 20 183/80 (114) 95 04/09/19 04:00 97.9 62 16 141/66 (91) 98 04/09/19 00:00 97.5 68 16 152/76 (101) 96 04/08/19 22:38 173/84 04/08/19 20:06 Room Air 04/08/19 20:00 98.5 85 16 173/84 (113) 94 04/08/19 17:12 164/79 04/08/19 16:46 99.0 04/08/19 16:00 98.4 81 19 164/79 (107) 98 Height (Feet): 5 Height (Inches): 7.00 Weight (Pounds): 280 Objective GENERAL: The patient is well-developed and well-nourished obese female, in no apparent distress. HEENT: Eyes, pupils are equal and responsive to light and accommodation. Extraocular movements are intact. NECK: Supple without lymphadenopathy. CHEST: Lungs are clear to auscultation bilaterally without wheezes or rales. CARDIOVASCULAR: Regular rate. S1 and S2 normal without murmurs, rubs, or gallops. ABDOMEN: Soft, nontender, nondistended. Positive bowel sounds. No evidence of hepatosplenomegaly. Currently, no rebound or guarding noted. EXTREMITIES: Negative for clubbing, cyanosis, or edema. Laboratory Tests Test 04/09/19 05:40 White Blood Count 7.2 K/UL (4.8-10.8) Red Blood Count 3.37 M/UL (4.20-5.40) L Hemoglobin 8.7 G/DL (12.0-16.0) L Hematocrit 27.3 % (37.0-47.0) L Mean Corpuscular Volume 81 FL (80-99) Mean Corpuscular Hemoglobin 25.8 PG (27.0-31.0) L Mean Corpuscular Hemoglobin Concent 31.7 G/DL (32.0-36.0) L Red Cell Distribution Width 14.0 % (11.6-14.8) Platelet Count 209 K/UL (150-450) Mean Platelet Volume 6.0 FL (6.5-10.1) L Neutrophils (%) (Auto) 58.0 % (45.0-75.0) Lymphocytes (%) (Auto) 31.5 % (20.0-45.0) Monocytes (%) (Auto) 6.1 % (1.0-10.0) Eosinophils (%) (Auto) 3.4 % (0.0-3.0) H Basophils (%) (Auto) 1.0 % (0.0-2.0) Sodium Level 142 MMOL/L (136-145) Potassium Level 4.2 MMOL/L (3.5-5.1) Chloride Level 107 MMOL/L (98-107) Carbon Dioxide Level 30 MMOL/L (21-32) Anion Gap 5 mmol/L (5-15) Blood Urea Nitrogen 18 mg/dL (7-18) Creatinine 1.1 MG/DL (0.55-1.30) Estimat Glomerular Filtration Rate 59.9 mL/min (>60) Glucose Level 127 MG/DL (74-106) H Calcium Level 8.7 MG/DL (8.5-10.1) Current Medications Medications (Trade) Dose Ordered Sig/Isak Route PRN Reason Start Time Stop Time Status Last Admin Dose Admin Acetaminophen (Tylenol) 650 mg Q4H PRN ORAL Mild Pain (Pain Scale 1-3) 04/04/19 12:45 05/04/19 12:44 Acetaminophen (Tylenol) 650 mg Q4H PRN ORAL fever 04/04/19 13:00 05/04/19 12:59 Amlodipine Besylate (Norvasc) 10 mg DAILY ORAL 04/05/19 09:00 05/05/19 08:59 04/09/19 09:00 Cefazolin Sodium 1 gm/Dextrose 55 ml @ 110 mls/hr Q8HR IVPB 04/06/19 22:00 04/13/19 21:59 04/09/19 05:49 Chlorhexidine Gluconate (Autumn-Hex 2%) 1 applic DAILY@2000 TOPIC 04/05/19 20:00 05/05/19 19:59 04/07/19 21:27 Clonazepam (KlonoPIN) 0.5 mg DAILYPRN PRN ORAL For Anxiety 04/04/19 13:45 04/11/19 13:44 Clonidine HCl (Catapres Tab) 0.1 mg Q4H PRN ORAL sbp more than 160 04/04/19 13:00 05/04/19 12:59 04/08/19 17:12 Clonidine HCl (Catapres Tab) 0.1 mg QHS ORAL 04/05/19 21:00 05/05/19 20:59 04/08/19 22:38 Dextrose (Dextrose 50%) 25 ml Q30M PRN IV Hypoglycemia 04/04/19 13:00 05/04/19 12:59 Dextrose (Dextrose 50%) 50 ml Q30M PRN IV Hypoglycemia 04/04/19 13:00 05/04/19 12:59 Diphenhydramine HCl (Benadryl) 25 mg Q6H PRN ORAL Itching/Pruritis 04/04/19 12:45 05/04/19 12:44 04/08/19 22:37 Heparin Sodium (Porcine) (Heparin 5000 units/ml) 5,000 units EVERY 12 HOURS SUBQ 04/04/19 21:00 05/04/19 20:59 04/09/19 09:01 Insulin Aspart (NovoLOG) BEFORE MEALS AND HS SUBQ 04/04/19 16:30 05/04/19 16:29 04/05/19 20:18 Losartan Potassium (Cozaar) 50 mg DAILY ORAL 04/05/19 09:00 05/05/19 08:59 04/09/19 09:00 Metformin HCl (Glucophage) 500 mg TWICE A DAY ORAL 04/04/19 18:00 05/04/19 17:59 04/09/19 09:00 Morphine Sulfate (Morphine Sulfate) 2 mg Q4H PRN IVP severe pain 7-10 04/04/19 13:00 04/11/19 12:59 04/07/19 21:28 Nitroglycerin (Ntg) 0.4 mg Q5M X 3 DOSES PRN SL Prn Chest Pain 04/04/19 13:00 05/04/19 12:59 Ondansetron HCl (Zofran) 4 mg Q6H PRN IVP Nausea & Vomiting 04/04/19 13:00 05/04/19 12:59 Oxycodone/ Acetaminophen (Percocet 10/325) 1 tab Q4H PRN ORAL pain 4-7 04/04/19 13:00 04/11/19 12:59 04/08/19 22:38 Pantoprazole (Protonix) 40 mg DAILY ORAL 04/05/19 09:00 05/05/19 08:59 04/09/19 08:59 Polyethylene Glycol (Miralax) 17 gm HSPRN PRN ORAL Constipation 04/04/19 13:00 05/04/19 12:59 Temazepam (Restoril) 15 mg HSPRN PRN ORAL Insomnia 04/04/19 13:00 04/11/19 12:59 Natalie Rod M.D. Apr 09, 2019 13:10
[2019-04-09] MEDS: Albuterol/Ipratropium 3ml neb HHN PRN ×2 (13:48→22:21)
[2019-04-09] MEDS ORDERED: Cathflo Alteplase 2mg Inj INJ SCH (15:00)
[2019-04-09 16:00] VITALS: BP 157/76
--- NOTE | 2019-04-09 19:00 | Internal Med Progress Note ---
Subjective Date of Service: Apr 09, 2019 Physician Name Milan Limon Attending Physician Clarence Sue MD Current Medications Medications (Trade) Dose Ordered Sig/Isak Route PRN Reason Start Time Stop Time Status Last Admin Dose Admin Acetaminophen (Tylenol) 650 mg Q4H PRN ORAL Mild Pain (Pain Scale 1-3) 04/04/19 12:45 05/04/19 12:44 Acetaminophen (Tylenol) 650 mg Q4H PRN ORAL fever 04/04/19 13:00 05/04/19 12:59 Albuterol/ Ipratropium (Albuterol/ Ipratropium) 3 ml Q4H PRN HHN Shortness of Breath 04/09/19 13:45 04/14/19 13:44 04/09/19 13:48 Amlodipine Besylate (Norvasc) 10 mg DAILY ORAL 04/05/19 09:00 05/05/19 08:59 04/09/19 09:00 Cefazolin Sodium 1 gm/Dextrose 55 ml @ 110 mls/hr Q8HR IVPB 04/06/19 22:00 04/13/19 21:59 04/09/19 14:23 Chlorhexidine Gluconate (Autumn-Hex 2%) 1 applic DAILY@2000 TOPIC 04/05/19 20:00 05/05/19 19:59 04/07/19 21:27 Clonazepam (KlonoPIN) 0.5 mg DAILYPRN PRN ORAL For Anxiety 04/04/19 13:45 04/11/19 13:44 Clonidine HCl (Catapres Tab) 0.1 mg Q4H PRN ORAL sbp more than 160 04/04/19 13:00 05/04/19 12:59 04/08/19 17:12 Clonidine HCl (Catapres Tab) 0.1 mg QHS ORAL 04/05/19 21:00 05/05/19 20:59 04/08/19 22:38 Dextrose (Dextrose 50%) 25 ml Q30M PRN IV Hypoglycemia 04/04/19 13:00 05/04/19 12:59 Dextrose (Dextrose 50%) 50 ml Q30M PRN IV Hypoglycemia 04/04/19 13:00 05/04/19 12:59 Diphenhydramine HCl (Benadryl) 25 mg Q6H PRN ORAL Itching/Pruritis 04/04/19 12:45 05/04/19 12:44 04/08/19 22:37 Heparin Sodium (Porcine) (Heparin 5000 units/ml) 5,000 units EVERY 12 HOURS SUBQ 04/04/19 21:00 05/04/19 20:59 04/09/19 09:01 Insulin Aspart (NovoLOG) BEFORE MEALS AND HS SUBQ 04/04/19 16:30 05/04/19 16:29 04/09/19 17:09 Losartan Potassium (Cozaar) 50 mg DAILY ORAL 04/05/19 09:00 05/05/19 08:59 04/09/19 09:00 Metformin HCl (Glucophage) 500 mg TWICE A DAY ORAL 04/04/19 18:00 05/04/19 17:59 04/09/19 17:08 Morphine Sulfate (Morphine Sulfate) 2 mg Q4H PRN IVP severe pain 7-10 04/04/19 13:00 04/11/19 12:59 04/07/19 21:28 Nitroglycerin (Ntg) 0.4 mg Q5M X 3 DOSES PRN SL Prn Chest Pain 04/04/19 13:00 05/04/19 12:59 Ondansetron HCl (Zofran) 4 mg Q6H PRN IVP Nausea & Vomiting 04/04/19 13:00 05/04/19 12:59 Oxycodone/ Acetaminophen (Percocet 10/325) 1 tab Q4H PRN ORAL pain 4-7 04/04/19 13:00 04/11/19 12:59 04/08/19 22:38 Pantoprazole (Protonix) 40 mg DAILY ORAL 04/05/19 09:00 05/05/19 08:59 04/09/19 08:59 Polyethylene Glycol (Miralax) 17 gm HSPRN PRN ORAL Constipation 04/04/19 13:00 05/04/19 12:59 Temazepam (Restoril) 15 mg HSPRN PRN ORAL Insomnia 04/04/19 13:00 04/11/19 12:59 Allergies: Coded Allergies: SULFA (SULFONAMIDE ANTIBIOTICS) (Verified Allergy, Mild, hives, 04/06/19) ROS Limited/Unobtainable: No Constitutional: Reports: no symptoms HEENT: Reports: no symptoms Cardiovascular: Reports: no symptoms Respiratory: Reports: no symptoms Gastrointestinal/Abdominal: Reports: no symptoms Genitourinary: Reports: no symptoms Neurologic/Psychiatric: Reports: no symptoms Subjective 68 YO F admitted with bilateral heel pain. Now left diabetic foot ulcer. Cover for Int Ivan-Dr Sue Objective Last Vital Signs Date Time Temp Pulse Resp B/P (MAP) Pulse Ox O2 Delivery O2 Flow Rate FiO2 04/09/19 16:00 98.4 94 20 157/76 (103) 98 04/09/19 13:50 Room Air 21 Laboratory Tests Test 04/09/19 05:40 04/09/19 16:30 White Blood Count 7.2 K/UL (4.8-10.8) Red Blood Count 3.37 M/UL (4.20-5.40) L Hemoglobin 8.7 G/DL (12.0-16.0) L Hematocrit 27.3 % (37.0-47.0) L Mean Corpuscular Volume 81 FL (80-99) Mean Corpuscular Hemoglobin 25.8 PG (27.0-31.0) L Mean Corpuscular Hemoglobin Concent 31.7 G/DL (32.0-36.0) L Red Cell Distribution Width 14.0 % (11.6-14.8) Platelet Count 209 K/UL (150-450) Mean Platelet Volume 6.0 FL (6.5-10.1) L Neutrophils (%) (Auto) 58.0 % (45.0-75.0) Lymphocytes (%) (Auto) 31.5 % (20.0-45.0) Monocytes (%) (Auto) 6.1 % (1.0-10.0) Eosinophils (%) (Auto) 3.4 % (0.0-3.0) H Basophils (%) (Auto) 1.0 % (0.0-2.0) Sodium Level 142 MMOL/L (136-145) Potassium Level 4.2 MMOL/L (3.5-5.1) Chloride Level 107 MMOL/L (98-107) Carbon Dioxide Level 30 MMOL/L (21-32) Anion Gap 5 mmol/L (5-15) Blood Urea Nitrogen 18 mg/dL (7-18) Creatinine 1.1 MG/DL (0.55-1.30) Estimat Glomerular Filtration Rate 59.9 mL/min (>60) Glucose Level 127 MG/DL (74-106) H Calcium Level 8.7 MG/DL (8.5-10.1) Stool Occult Blood Pending Intake and Output 04/08/19 04/09/19 19:00 07:00 Intake Total 1150 ml 1040 ml Output Total 251 ml Balance 1150 ml 789 ml Intake Oral 1040 ml 1040 ml IV Total 110 ml Output Urine Total 250 ml Stool Total 1 ml # Voids 6 Objective PHYSICAL EXAMINATION: GENERAL: The patient is well-developed and well-nourished obese female, in no apparent distress. HEENT: Eyes, pupils are equal and responsive to light and accommodation. Extraocular movements are intact. NECK: Supple without lymphadenopathy. CHEST: Lungs are clear to auscultation bilaterally without wheezes or rales. CARDIOVASCULAR: Regular rate. S1 and S2 normal without murmurs, rubs, or gallops. ABDOMEN: Soft, nontender, nondistended. Positive bowel sounds. No evidence of hepatosplenomegaly. Currently, no rebound or guarding noted. EXTREMITIES: Negative for clubbing, cyanosis, or edema. RECTAL/GENITAL: Not performed. NEUROLOGIC: Cranial nerves II through XII are grossly intact without focal deficits. Motor strength is 5/5 bilaterally. Deep tendon reflexes are 2+ plantar. Assessment/Plan Assessment/Plan ASSESSMENT: This is a 68-year-old female. 1. Diabetic left heel ulcer. 2. Diabetes type 2. 3. Hypertension. 4. Cellulitis left leg TREATMENT: 1. Left diabetic foot ulcer. A Podiatry consultation has been obtained with Dr. Hoyt. We will follow recommendations of Podiatry. An MRI of bilateral feet does not indicate acute osteomyelitis. ABX=ancef per ID=Dr Rod 2. Diabetes type 2. NovoLog sliding scale has been instituted. 3. Hypertension. The patient has been started empirically on lisinopril. 4. Discharge planning: [facility] Milan Limon MD Apr 09, 2019 19:00
--- NOTE | 2019-04-09 19:15 | NUR ---
HAND-OFF: Report given to CATA Chavez.
[2019-04-09 20:00] VITALS: BP 145/84
[2019-04-09] MEDS: Dyna-Hex 2% Top Sol 2oz TOPIC SCH (22:35)
[2019-04-10] VITALS: BP 124/80
[2019-04-10] MEDS: Albuterol/Ipratropium 3ml neb HHN PRN (02:33)
[2019-04-10 04:00] VITALS: BP 151/71
[2019-04-10] MEDS: ceFAZolin sod 1 GM in D5W 55 ML IVPB SCH ×2 (05:19→15:01)
[2019-04-10] MEDS: NovoLOG Insulin Flexpen SUBQ SCH ×4 (05:19→20:47)
--- NOTE | 2019-04-10 06:38 | General Progress Note ---
Assessment/Plan Problem List: (1) Diabetic foot ulcer associated with type 2 diabetes mellitus ICD Codes: E11.621 - Type 2 diabetes mellitus with foot ulcer; L97.509 - Non- pressure chronic ulcer of other part of unspecified foot with unspecified severity SNOMED: 438352556, 9846010525492 (2) Severe anemia ICD Codes: D64.9 - Anemia, unspecified SNOMED: 396989109 (3) Morbid obesity with BMI of 40.0-44.9, adult ICD Codes: E66.01 - Morbid (severe) obesity due to excess calories; Z68.41 - Body mass index (BMI) 40.0-44.9, adult SNOMED: 399354501, 616514966, [id number] Assessment/Plan: no need for basal insulin for now continue NISS ac / hs Subjective Allergies: Coded Allergies: SULFA (SULFONAMIDE ANTIBIOTICS) (Verified Allergy, Mild, hives, 04/06/19) Subjective events noted fair glycemic control Item Value Date Time Bedside Blood Glucose 97 mg/dl 04/10/19 0520 Bedside Blood Glucose 114 mg/dl 04/09/19 2235 Bedside Blood Glucose 129 mg/dl H 04/09/19 1709 Bedside Blood Glucose 103 mg/dl 04/09/19 1130 Bedside Blood Glucose 122 mg/dl H 04/09/19 0623 Objective Last 24 Hour Vital Signs Date Time Temp Pulse Resp B/P (MAP) Pulse Ox O2 Delivery O2 Flow Rate FiO2 04/10/19 04:00 98.5 89 20 151/71 (97) 97 04/10/19 02:35 79 18 100 Room Air 21 77 18 99 04/10/19 00:00 98.4 88 18 124/80 (95) 97 04/09/19 22:35 145/84 04/09/19 22:20 75 18 100 Room Air 21 74 18 98 04/09/19 22:18 81 18 99 Room Air 21 04/09/19 20:27 Room Air 04/09/19 20:00 98.9 83 18 145/84 (104) 100 04/09/19 16:00 98.4 94 20 157/76 (103) 98 04/09/19 13:50 79 18 98 Room Air 21 78 18 04/09/19 13:50 77 18 98 Room Air 04/09/19 12:00 98.3 69 20 158/73 (101) 99 04/09/19 09:00 Room Air 04/09/19 09:00 70 183/80 04/09/19 09:00 183/80 04/09/19 08:00 98.3 70 20 183/80 (114) 95 Intake and Output 04/09/19 04/10/19 18:59 06:59 Intake Total 1495 ml Output Total 1200 ml 400 ml Balance 295 ml -400 ml Intake Oral 1440 ml IV Total 55 ml Output Urine Total 1200 ml 400 ml # Voids 2 # Bowel Movements 1 Laboratory Tests 04/09/19 16:30: Stool Occult Blood [Pending] 04/10/19 05:20: White Blood Count [Pending], Red Blood Count [Pending], Hemoglobin [Pending], Hematocrit [Pending], Mean Corpuscular Volume [Pending], Mean Corpuscular Hemoglobin [Pending], Mean Corpuscular Hemoglobin Concent [Pending], Red Cell Distribution Width [Pending], Platelet Count [Pending], Mean Platelet Volume [ Pending], Neutrophils (%) (Auto) [Pending], Lymphocytes (%) (Auto) [Pending], Monocytes (%) (Auto) [Pending], Eosinophils (%) (Auto) [Pending], Basophils (%) (Auto) [Pending], Erythrocyte Sedimentation Rate [Pending], Sodium Level [ Pending], Potassium Level [Pending], Chloride Level [Pending], Carbon Dioxide Level [Pending], Blood Urea Nitrogen [Pending], Creatinine [Pending], Estimat Glomerular Filtration Rate [Pending], Glucose Level [Pending], Calcium Level [ Pending], Phosphorus Level [Pending], Magnesium Level [Pending], Total Bilirubin [Pending], Aspartate Amino Transf (AST/SGOT) [Pending], Alanine Aminotransferase (ALT/SGPT) [Pending], Alkaline Phosphatase [Pending], C- Reactive Protein, Quantitative [Pending], Total Protein [Pending], Albumin [ Pending], Globulin [Pending] Height (Feet): 5 Height (Inches): 7.00 Weight (Pounds): 280 General Appearance: no apparent distress Neck: normal alignment Cardiovascular: normal rate Respiratory/Chest: decreased breath sounds Abdomen: normal bowel sounds Objective Current Medications Medications (Trade) Dose Ordered Sig/Isak Route PRN Reason Start Time Stop Time Status Last Admin Dose Admin Acetaminophen (Tylenol) 650 mg Q4H PRN ORAL Mild Pain (Pain Scale 1-3) 04/04/19 12:45 05/04/19 12:44 Acetaminophen (Tylenol) 650 mg Q4H PRN ORAL fever 04/04/19 13:00 05/04/19 12:59 Albuterol/ Ipratropium (Albuterol/ Ipratropium) 3 ml Q4H PRN HHN Shortness of Breath 04/09/19 13:45 04/14/19 13:44 04/10/19 02:33 Amlodipine Besylate (Norvasc) 10 mg DAILY ORAL 04/05/19 09:00 05/05/19 08:59 04/09/19 09:00 Cefazolin Sodium 1 gm/Dextrose 55 ml @ 110 mls/hr Q8HR IVPB 04/06/19 22:00 04/13/19 21:59 04/10/19 05:19 Chlorhexidine Gluconate (Autumn-Hex 2%) 1 applic DAILY@2000 TOPIC 04/05/19 20:00 05/05/19 19:59 04/09/19 22:35 Clonazepam (KlonoPIN) 0.5 mg DAILYPRN PRN ORAL For Anxiety 04/04/19 13:45 04/11/19 13:44 Clonidine HCl (Catapres Tab) 0.1 mg Q4H PRN ORAL sbp more than 160 04/04/19 13:00 05/04/19 12:59 04/08/19 17:12 Clonidine HCl (Catapres Tab) 0.1 mg QHS ORAL 04/05/19 21:00 05/05/19 20:59 04/09/19 22:35 Dextrose (Dextrose 50%) 25 ml Q30M PRN IV Hypoglycemia 04/04/19 13:00 05/04/19 12:59 Dextrose (Dextrose 50%) 50 ml Q30M PRN IV Hypoglycemia 04/04/19 13:00 05/04/19 12:59 Diphenhydramine HCl (Benadryl) 25 mg Q6H PRN ORAL Itching/Pruritis 04/04/19 12:45 05/04/19 12:44 04/08/19 22:37 Heparin Sodium (Porcine) (Heparin 5000 units/ml) 5,000 units EVERY 12 HOURS SUBQ 04/04/19 21:00 05/04/19 20:59 04/09/19 22:35 Insulin Aspart (NovoLOG) BEFORE MEALS AND HS SUBQ 04/04/19 16:30 05/04/19 16:29 04/09/19 17:09 Losartan Potassium (Cozaar) 50 mg DAILY ORAL 04/05/19 09:00 05/05/19 08:59 04/09/19 09:00 Metformin HCl (Glucophage) 500 mg TWICE A DAY ORAL 04/04/19 18:00 05/04/19 17:59 04/09/19 17:08 Morphine Sulfate (Morphine Sulfate) 2 mg Q4H PRN IVP severe pain 7-10 04/04/19 13:00 04/11/19 12:59 04/07/19 21:28 Nitroglycerin (Ntg) 0.4 mg Q5M X 3 DOSES PRN SL Prn Chest Pain 04/04/19 13:00 05/04/19 12:59 Ondansetron HCl (Zofran) 4 mg Q6H PRN IVP Nausea & Vomiting 04/04/19 13:00 05/04/19 12:59 Oxycodone/ Acetaminophen (Percocet 10/325) 1 tab Q4H PRN ORAL pain 4-7 04/04/19 13:00 04/11/19 12:59 04/08/19 22:38 Pantoprazole (Protonix) 40 mg DAILY ORAL 04/05/19 09:00 05/05/19 08:59 04/09/19 08:59 Polyethylene Glycol (Miralax) 17 gm HSPRN PRN ORAL Constipation 04/04/19 13:00 05/04/19 12:59 Temazepam (Restoril) 15 mg HSPRN PRN ORAL Insomnia 04/04/19 13:00 04/11/19 12:59 Josesito Ovalle MD Apr 10, 2019 06:38
[2019-04-10 06:41] LABS: BASOPHILS % (AUTO) 0.6 % (0.0-2.0); HEMATOCRIT 29.1 % (37.0-47.0); HEMOGLOBIN 9.2 G/DL (12.0-16.0); MEAN CORPUSCULAR VOLUME 81 FL (80-99); MONOCYTES % (AUTO) 5.1 % (1.0-10.0); NEUTROPHILS % (AUTO) 69.4 % (45.0-75.0); PLATELET COUNT 240 K/UL (150-450); RED BLOOD COUNT 3.61 M/UL (4.20-5.40); RED CELL DISTRIBUTION WIDTH 13.9 % (11.6-14.8); WHITE BLOOD COUNT 8.5 K/UL (4.8-10.8)
--- NOTE | 2019-04-10 07:50 | NUR ---
HAND-OFF: Report given to Bernadine Palumbo RN.
--- NOTE | 2019-04-10 07:51 | NUR ---
NURSE NOTES: Received report from CATA Parra. Pt is alert and awake, sitting up in bed. On RA, no complaints of pain or apparent distress noted. PICC on KAN has TKO but hard to flush with resistance. Will ask Dr. Olguin for Cathflo. Dressings on bilateral foot dry and intact. Bed locked in lowest position, side rails up, call light within reach. Will continue to monitor.
[2019-04-10 08:00] VITALS: BP 144/79
[2019-04-10 08:05] LABS: ALANINE AMINOTRANSFERASE 22 U/L (12-78); ALBUMIN 2.5 G/DL (3.4-5.0); ALBUMIN/GLOBULIN RATIO 0.6 (1.0-2.7); ALKALINE PHOSPHATASE 53 U/L (46-116); ANION GAP 7 mmol/L (5-15); ASPARTATE AMINO TRANSFERASE 29 U/L (15-37); BILIRUBIN,TOTAL 0.2 MG/DL (0.2-1.0); BLOOD UREA NITROGEN 17 mg/dL (7-18); CARBON DIOXIDE 30 MMOL/L (21-32); CHLORIDE 105 MMOL/L (98-107); CREATININE 0.9 MG/DL (0.55-1.30); PHOSPHORUS 3.2 MG/DL (2.5-4.9); POTASSIUM 3.9 MMOL/L (3.5-5.1); SODIUM 142 MMOL/L (136-145)
--- NOTE | 2019-04-10 08:14 | NUR ---
CASE MANAGEMENT: REVIEW 04/08/19 SI: DIABETIC FOOT ULCER . ELEPHANTASIS . SEVER ANEMIA . DM 98.1 90 18 155/71 97% ON RA H/H 8.7/27.9 CO2 33 IS:IV CEFAZOLIN Q8HR HEPARIN QS BID COZAAR PO QD NORVASC PO QD CLONIDINE PO QHS CLONIDINE PO Q4/PRN PROTONIX PO QD METFORMIN PO BID ALBUTEROL Q4HR/PRN 4E MED SURG UNIT PLAN: PICC LINE FOR IV ABX OFF-LOADING HEELS MRI FEET PODIATRY CONSULT CASE MANAGEMENT: REVIEW 04/09/19 SI: DIABETIC FOOT ULCER . ELEPHANTASIS . SEVER ANEMIA . DM 98.3 70 20 183/80 95% ON RA H/H 8.7/27.3 BG 127 IS:IV CEFAZOLIN Q8HR HEPARIN QS BID COZAAR PO QD NORVASC PO QD CLONIDINE PO QHS CLONIDINE PO Q4/PRN PROTONIX PO QD METFORMIN PO BID ALBUTEROL Q4HR/PRN 4E MED SURG UNIT PLAN: PICC LINE FOR IV ABX OFF-LOADING HEELS MRI FEET PODIATRY CONSULT CASE MANAGEMENT: REVIEW 04/10/19 SI: DIABETIC FOOT ULCER . ELEPHANTASIS . SEVER ANEMIA . DM 98.5 89 20 151/71 97% ON RA H/H 9.2/29.1 IS:IV CEFAZOLIN Q8HR HEPARIN QS BID COZAAR PO QD NORVASC PO QD CLONIDINE PO QHS CLONIDINE PO Q4/PRN PROTONIX PO QD METFORMIN PO BID ALBUTEROL Q4HR/PRN 4E MED SURG UNIT PLAN: PICC LINE FOR IV ABX OFF-LOADING HEELS MRI FEET PODIATRY CONSULT
--- NOTE | 2019-04-10 08:25 | NUR ---
NURSE NOTES: Notified Dr. Olguin for pt's PICC line being resistant, asked for possible cathflo. Also notified of pt's mg 1.3.
[2019-04-10] MEDS: metFORMIN 500mg tab ORAL SCH ×2 (08:39→17:05)
[2019-04-10] MEDS: Losartan 50mg tab ORAL SCH (08:39)
[2019-04-10] MEDS: Heparin 5000 units/ml inj SUBQ SCH ×2 (08:47→20:47)
--- NOTE | 2019-04-10 08:48 | NUR ---
NURSE NOTES: Pt's pain level was 9 but pt preferred taking Percocet PO over morphine IV d/t resistance on PICC line.
--- NOTE | 2019-04-10 09:39 | NUR ---
DISCHARGE PLANNING: CLINICALS HAVE BEEN SENT TO 1# [facility] T: [phone] 2#[facility] T:[phone] 3#[facility] T:[phone] WAITING FOR RESPONSE
[2019-04-10] MEDS ORDERED: Cathflo Alteplase 2mg Inj INJ SCH (10:00)
--- NOTE | 2019-04-10 10:17 | NUR ---
NURSE NOTES: RN picked up belgica from pharmacy, handed from Meena.
[2019-04-10 12:00] VITALS: BP 138/66
--- NOTE | 2019-04-10 12:31 | Pulmonology Progress Note ---
Assessment/Plan Problems: (1) Diabetic foot ulcer (2) Elephantiasis (3) Severe anemia (4) Diabetes mellitus (5) Morbid obesity with BMI of 40.0-44.9, adult (6) Cellulitis Assessment/Plan doing better no new events iv abx, ID following , all MRI's are negative sliding scale diabetic diet pt wants to go to a rehab facility Subjective ROS Limited/Unobtainable: No Constitutional: Reports: no symptoms Respiratory: Reports: no symptoms Allergies: Coded Allergies: SULFA (SULFONAMIDE ANTIBIOTICS) (Verified Allergy, Mild, hives, 04/06/19) Objective Last 24 Hour Vital Signs Date Time Temp Pulse Resp B/P (MAP) Pulse Ox O2 Delivery O2 Flow Rate FiO2 04/10/19 11:47 76 20 98 Room Air 21 04/10/19 08:40 90 144/79 04/10/19 08:39 144/79 04/10/19 08:00 98.7 90 18 144/79 (100) 97 04/10/19 04:00 98.5 89 20 151/71 (97) 97 04/10/19 02:35 79 18 100 Room Air 21 77 18 99 04/10/19 00:00 98.4 88 18 124/80 (95) 97 04/09/19 22:35 145/84 04/09/19 22:20 75 18 100 Room Air 21 74 18 98 04/09/19 22:18 81 18 99 Room Air 21 04/09/19 20:27 Room Air 04/09/19 20:00 98.9 83 18 145/84 (104) 100 04/09/19 16:00 98.4 94 20 157/76 (103) 98 04/09/19 13:50 79 18 98 Room Air 21 78 18 04/09/19 13:50 77 18 98 Room Air Intake and Output 04/09/19 04/10/19 19:00 07:00 Intake Total 1495 ml Output Total 1200 ml 400 ml Balance 295 ml -400 ml Intake Oral 1440 ml IV Total 55 ml Output Urine Total 1200 ml 400 ml # Voids 2 # Bowel Movements 1 Objective General Appearance: WD/WN, no apparent distress Lines, tubes and drains: peripheral HEENT: normocephalic, atraumatic Neck: non-tender, normal alignment Respiratory/Chest: chest wall non-tender, lungs clear Breasts: no masses Cardiovascular/Chest: normal peripheral pulses Abdomen: non tender Extremities: normal range of motion Skin Exam: normal pigmentation Laboratory Tests 04/09/19 16:30: Stool Occult Blood Negative 04/10/19 05:20: White Blood Count 8.5, Red Blood Count 3.61L, Hemoglobin 9.2L, Hematocrit 29.1L , Mean Corpuscular Volume 81, Mean Corpuscular Hemoglobin 25.4L, Mean Corpuscular Hemoglobin Concent 31.5L, Red Cell Distribution Width 13.9, Platelet Count 240, Mean Platelet Volume 6.2L, Neutrophils (%) (Auto) 69.4, Lymphocytes (%) (Auto) 23.0, Monocytes (%) (Auto) 5.1, Eosinophils (%) (Auto) 2.0, Basophils (%) (Auto) 0.6, Erythrocyte Sedimentation Rate 58H, Sodium Level 142, Potassium Level 3.9, Chloride Level 105, Carbon Dioxide Level 30, Anion Gap 7, Blood Urea Nitrogen 17, Creatinine 0.9, Estimat Glomerular Filtration Rate > 60, Glucose Level 93, Calcium Level 9.0, Phosphorus Level 3.2, Magnesium Level 1.3L, Total Bilirubin 0.2, Aspartate Amino Transf (AST/SGOT) 29, Alanine Aminotransferase (ALT/SGPT) 22, Alkaline Phosphatase 53, C-Reactive Protein, Quantitative 2.4H, Total Protein 6.5, Albumin 2.5L, Globulin 4.0, Albumin/ Globulin Ratio 0.6L Current Medications Medications (Trade) Dose Ordered Sig/Isak Route PRN Reason Start Time Stop Time Status Last Admin Dose Admin Acetaminophen (Tylenol) 650 mg Q4H PRN ORAL Mild Pain (Pain Scale 1-3) 04/04/19 12:45 05/04/19 12:44 Acetaminophen (Tylenol) 650 mg Q4H PRN ORAL fever 04/04/19 13:00 05/04/19 12:59 Albuterol/ Ipratropium (Albuterol/ Ipratropium) 3 ml Q4H PRN HHN Shortness of Breath 04/09/19 13:45 04/14/19 13:44 04/10/19 02:33 Alteplase, Recombinant (Cathflo) 4 mg ONCE INJ 04/10/19 10:00 04/10/19 13:00 04/10/19 11:03 Amlodipine Besylate (Norvasc) 10 mg DAILY ORAL 04/05/19 09:00 05/05/19 08:59 04/10/19 08:40 Cefazolin Sodium 1 gm/Dextrose 55 ml @ 110 mls/hr Q8HR IVPB 04/06/19 22:00 04/13/19 21:59 04/10/19 05:19 Chlorhexidine Gluconate (Autumn-Hex 2%) 1 applic DAILY@2000 TOPIC 04/05/19 20:00 05/05/19 19:59 04/09/19 22:35 Clonazepam (KlonoPIN) 0.5 mg DAILYPRN PRN ORAL For Anxiety 04/04/19 13:45 04/11/19 13:44 Clonidine HCl (Catapres Tab) 0.1 mg Q4H PRN ORAL sbp more than 160 04/04/19 13:00 05/04/19 12:59 04/08/19 17:12 Clonidine HCl (Catapres Tab) 0.1 mg QHS ORAL 04/05/19 21:00 05/05/19 20:59 04/09/19 22:35 Dextrose (Dextrose 50%) 25 ml Q30M PRN IV Hypoglycemia 04/04/19 13:00 05/04/19 12:59 Dextrose (Dextrose 50%) 50 ml Q30M PRN IV Hypoglycemia 04/04/19 13:00 05/04/19 12:59 Diphenhydramine HCl (Benadryl) 25 mg Q6H PRN ORAL Itching/Pruritis 04/04/19 12:45 05/04/19 12:44 04/10/19 08:40 Heparin Sodium (Porcine) (Heparin 5000 units/ml) 5,000 units EVERY 12 HOURS SUBQ 04/04/19 21:00 05/04/19 20:59 04/10/19 08:47 Insulin Aspart (NovoLOG) BEFORE MEALS AND HS SUBQ 04/04/19 16:30 05/04/19 16:29 04/09/19 17:09 Losartan Potassium (Cozaar) 50 mg DAILY ORAL 04/05/19 09:00 05/05/19 08:59 04/10/19 08:39 Magnesium Sulfate 100 ml @ 100 mls/hr Q1H IVPB 04/10/19 12:00 04/10/19 13:59 04/10/19 12:14 Metformin HCl (Glucophage) 500 mg TWICE A DAY ORAL 04/04/19 18:00 05/04/19 17:59 04/10/19 08:39 Morphine Sulfate (Morphine Sulfate) 2 mg Q4H PRN IVP severe pain 7-10 04/04/19 13:00 04/11/19 12:59 04/07/19 21:28 Nitroglycerin (Ntg) 0.4 mg Q5M X 3 DOSES PRN SL Prn Chest Pain 04/04/19 13:00 05/04/19 12:59 Ondansetron HCl (Zofran) 4 mg Q6H PRN IVP Nausea & Vomiting 04/04/19 13:00 05/04/19 12:59 Oxycodone/ Acetaminophen (Percocet 10/325) 1 tab Q4H PRN ORAL pain 4-7 04/04/19 13:00 04/11/19 12:59 04/10/19 08:42 Pantoprazole (Protonix) 40 mg DAILY ORAL 04/05/19 09:00 05/05/19 08:59 04/10/19 08:40 Polyethylene Glycol (Miralax) 17 gm HSPRN PRN ORAL Constipation 04/04/19 13:00 05/04/19 12:59 Temazepam (Restoril) 15 mg HSPRN PRN ORAL Insomnia 04/04/19 13:00 04/11/19 12:59 Mine Olguin MD Apr 10, 2019 12:31
--- NOTE | 2019-04-10 13:19 | NUR ---
DISCHARGED PLANNED: PATIENT HAS BEEN ACCEPTED TO [facility] T: [phone] FOR NURSE TO NURSE REPORT ROOM# 7B SKILLED WAITING FOR DC ORDER
--- NOTE | 2019-04-10 15:16 | Infectious Diseases Prog Note ---
Assessment/Plan Assessment/Plan Assessment: B/l heel ulcerations and pain; L heel and leg cellulitis; improving -L ankle MRI: Superficial skin erosion in the region of MRI marker responding to stated clinical history of heel ulcer. Faint slightly increased STIR signal in the calcaneal tuberosity, without associated T1 abnormality. Most likely reactive, although very early osteomyelitis cannot be completely ruled out. Faint slightly increased her signal in the talus, likewise without associated T1 abnormality. Most likely reactive, but early osteomyelitis cannot be completely ruled out. Extensive edema of the subcutaneous fat, as described. Given stated clinical history, may be on the basis of cellulitis, but could also indicate edema of vasogenic/hemodynamic origin. Correlate with clinical findings -R foot MRI: No evidence of osteomyelitis demonstrated. Diffuse edema of the subcutaneous fat, may indicate cellulitis or edema due to hemodynamic causes. No focal fluid collection to suggest abscess -R foot xray: no acute fracture -L foot xray: Soft tissue swelling. No acute injury identified. Osteoarthritis -ESR 56,CRP 4.0 Afebrile No leukocytosis Dm2 HTN Plan: -Switch IV Ancef #5 (abx d #11/08) to PO keflex for cellulitis -04/06 SP IV Vancomycin, ZOsyn #3 -f/u cx -Monitor CBC/CMP, temperatures Thank you for this consultation. Will continue to follow along with you. Discussed with RN. Subjective Allergies: Coded Allergies: SULFA (SULFONAMIDE ANTIBIOTICS) (Verified Allergy, Mild, hives, 04/06/19) Subjective afebrile no leukocytosis Objective Vital Signs Last 24 Hour Vital Signs Date Time Temp Pulse Resp B/P (MAP) Pulse Ox O2 Delivery O2 Flow Rate FiO2 04/10/19 11:47 76 20 98 Room Air 21 04/10/19 08:40 90 144/79 04/10/19 08:39 144/79 04/10/19 08:00 98.7 90 18 144/79 (100) 97 04/10/19 04:00 98.5 89 20 151/71 (97) 97 04/10/19 02:35 79 18 100 Room Air 21 77 18 99 04/10/19 00:00 98.4 88 18 124/80 (95) 97 04/09/19 22:35 145/84 04/09/19 22:20 75 18 100 Room Air 21 74 18 98 04/09/19 22:18 81 18 99 Room Air 21 04/09/19 20:27 Room Air 04/09/19 20:00 98.9 83 18 145/84 (104) 100 04/09/19 16:00 98.4 94 20 157/76 (103) 98 Height (Feet): 5 Height (Inches): 7.00 Weight (Pounds): 280 Objective GENERAL: The patient is well-developed and well-nourished obese female, in no apparent distress. HEENT: Eyes, pupils are equal and responsive to light and accommodation. Extraocular movements are intact. NECK: Supple without lymphadenopathy. CHEST: Lungs are clear to auscultation bilaterally without wheezes or rales. CARDIOVASCULAR: Regular rate. S1 and S2 normal without murmurs, rubs, or gallops. ABDOMEN: Soft, nontender, nondistended. Positive bowel sounds. No evidence of hepatosplenomegaly. Currently, no rebound or guarding noted. EXTREMITIES: Negative for clubbing, cyanosis, or edema. Laboratory Tests Test 04/09/19 16:30 04/10/19 05:20 Stool Occult Blood Negative (NEGATIVE) White Blood Count 8.5 K/UL (4.8-10.8) Red Blood Count 3.61 M/UL (4.20-5.40) L Hemoglobin 9.2 G/DL (12.0-16.0) L Hematocrit 29.1 % (37.0-47.0) L Mean Corpuscular Volume 81 FL (80-99) Mean Corpuscular Hemoglobin 25.4 PG (27.0-31.0) L Mean Corpuscular Hemoglobin Concent 31.5 G/DL (32.0-36.0) L Red Cell Distribution Width 13.9 % (11.6-14.8) Platelet Count 240 K/UL (150-450) Mean Platelet Volume 6.2 FL (6.5-10.1) L Neutrophils (%) (Auto) 69.4 % (45.0-75.0) Lymphocytes (%) (Auto) 23.0 % (20.0-45.0) Monocytes (%) (Auto) 5.1 % (1.0-10.0) Eosinophils (%) (Auto) 2.0 % (0.0-3.0) Basophils (%) (Auto) 0.6 % (0.0-2.0) Erythrocyte Sedimentation Rate 58 MM/HR (0-30) H Sodium Level 142 MMOL/L (136-145) Potassium Level 3.9 MMOL/L (3.5-5.1) Chloride Level 105 MMOL/L (98-107) Carbon Dioxide Level 30 MMOL/L (21-32) Anion Gap 7 mmol/L (5-15) Blood Urea Nitrogen 17 mg/dL (7-18) Creatinine 0.9 MG/DL (0.55-1.30) Estimat Glomerular Filtration Rate > 60 mL/min (>60) Glucose Level 93 MG/DL (74-106) Calcium Level 9.0 MG/DL (8.5-10.1) Phosphorus Level 3.2 MG/DL (2.5-4.9) Magnesium Level 1.3 MG/DL (1.8-2.4) L Total Bilirubin 0.2 MG/DL (0.2-1.0) Aspartate Amino Transf (AST/SGOT) 29 U/L (15-37) Alanine Aminotransferase (ALT/SGPT) 22 U/L (12-78) Alkaline Phosphatase 53 U/L (46-116) C-Reactive Protein, Quantitative 2.4 mg/dL (0.00-0.90) H Total Protein 6.5 G/DL (6.4-8.2) Albumin 2.5 G/DL (3.4-5.0) L Globulin 4.0 g/dL Albumin/Globulin Ratio 0.6 (1.0-2.7) L Current Medications Medications (Trade) Dose Ordered Sig/Isak Route PRN Reason Start Time Stop Time Status Last Admin Dose Admin Acetaminophen (Tylenol) 650 mg Q4H PRN ORAL Mild Pain (Pain Scale 1-3) 04/04/19 12:45 05/04/19 12:44 Acetaminophen (Tylenol) 650 mg Q4H PRN ORAL fever 04/04/19 13:00 05/04/19 12:59 Albuterol/ Ipratropium (Albuterol/ Ipratropium) 3 ml Q4H PRN HHN Shortness of Breath 04/09/19 13:45 04/14/19 13:44 04/10/19 02:33 Amlodipine Besylate (Norvasc) 10 mg DAILY ORAL 04/05/19 09:00 05/05/19 08:59 04/10/19 08:40 Cefazolin Sodium 1 gm/Dextrose 55 ml @ 110 mls/hr Q8HR IVPB 04/06/19 22:00 04/13/19 21:59 04/10/19 15:01 Chlorhexidine Gluconate (Autumn-Hex 2%) 1 applic DAILY@2000 TOPIC 04/05/19 20:00 05/05/19 19:59 04/09/19 22:35 Clonazepam (KlonoPIN) 0.5 mg DAILYPRN PRN ORAL For Anxiety 04/04/19 13:45 04/11/19 13:44 Clonidine HCl (Catapres Tab) 0.1 mg Q4H PRN ORAL sbp more than 160 04/04/19 13:00 05/04/19 12:59 04/08/19 17:12 Clonidine HCl (Catapres Tab) 0.1 mg QHS ORAL 04/05/19 21:00 05/05/19 20:59 04/09/19 22:35 Dextrose (Dextrose 50%) 25 ml Q30M PRN IV Hypoglycemia 04/04/19 13:00 05/04/19 12:59 Dextrose (Dextrose 50%) 50 ml Q30M PRN IV Hypoglycemia 04/04/19 13:00 05/04/19 12:59 Diphenhydramine HCl (Benadryl) 25 mg Q6H PRN ORAL Itching/Pruritis 04/04/19 12:45 05/04/19 12:44 04/10/19 08:40 Heparin Sodium (Porcine) (Heparin 5000 units/ml) 5,000 units EVERY 12 HOURS SUBQ 04/04/19 21:00 05/04/19 20:59 04/10/19 08:47 Insulin Aspart (NovoLOG) BEFORE MEALS AND HS SUBQ 04/04/19 16:30 05/04/19 16:29 04/09/19 17:09 Losartan Potassium (Cozaar) 50 mg DAILY ORAL 04/05/19 09:00 05/05/19 08:59 04/10/19 08:39 Metformin HCl (Glucophage) 500 mg TWICE A DAY ORAL 04/04/19 18:00 05/04/19 17:59 04/10/19 08:39 Morphine Sulfate (Morphine Sulfate) 2 mg Q4H PRN IVP severe pain 7-10 04/04/19 13:00 04/11/19 12:59 04/07/19 21:28 Nitroglycerin (Ntg) 0.4 mg Q5M X 3 DOSES PRN SL Prn Chest Pain 04/04/19 13:00 05/04/19 12:59 Ondansetron HCl (Zofran) 4 mg Q6H PRN IVP Nausea & Vomiting 04/04/19 13:00 05/04/19 12:59 Oxycodone/ Acetaminophen (Percocet 10/325) 1 tab Q4H PRN ORAL pain 4-7 04/04/19 13:00 04/11/19 12:59 04/10/19 08:42 Pantoprazole (Protonix) 40 mg DAILY ORAL 04/05/19 09:00 05/05/19 08:59 04/10/19 08:40 Polyethylene Glycol (Miralax) 17 gm HSPRN PRN ORAL Constipation 04/04/19 13:00 05/04/19 12:59 Temazepam (Restoril) 15 mg HSPRN PRN ORAL Insomnia 04/04/19 13:00 04/11/19 12:59 Natalie Rod M.D. Apr 10, 2019 15:16
[2019-04-10 16:00] VITALS: BP 152/76
[2019-04-10] MEDS: Cephalexin 500mg cap ORAL SCH ×2 (17:05→20:38)
[2019-04-10] MEDS ORDERED: BENADRYL25 MG ORAL (17:18)
[2019-04-10] MEDS ORDERED: KLONOPIN0.5 MG ORAL (17:18)
[2019-04-10] MEDS ORDERED: NOVOLOG100 UNITS1 SUBQ (17:18)
[2019-04-10] MEDS ORDERED: NORVASC10 MG ORAL (17:18)
[2019-04-10] MEDS ORDERED: GLUCOPHAGE500 MG ORAL (17:18)
[2019-04-10] MEDS ORDERED: ACETAMINOPHEN325 M1 ORAL (17:18)
[2019-04-10] MEDS ORDERED: PANTOPRAZOLE SO40 MG ORAL (17:18)
[2019-04-10] MEDS ORDERED: COZAAR50 MG ORAL (17:18)
[2019-04-10] MEDS ORDERED: PERCOCET 10-321 EACH ORAL (17:18)
[2019-04-10] MEDS ORDERED: KEFLEX500 M1 ORAL (17:18)
[2019-04-10] MEDS ORDERED: DUONEB 0.5-3(2.53 ML HHN (17:18)
--- NOTE | 2019-04-10 17:20 | Internal Med Progress Note ---
Subjective Date of Service: Apr 10, 2019 Physician Name Milan Limon Attending Physician Clarence Sue MD Current Medications Medications (Trade) Dose Ordered Sig/Isak Route PRN Reason Start Time Stop Time Status Last Admin Dose Admin Acetaminophen (Tylenol) 650 mg Q4H PRN ORAL Mild Pain (Pain Scale 1-3) 04/04/19 12:45 05/04/19 12:44 Acetaminophen (Tylenol) 650 mg Q4H PRN ORAL fever 04/04/19 13:00 05/04/19 12:59 Albuterol/ Ipratropium (Albuterol/ Ipratropium) 3 ml Q4H PRN HHN Shortness of Breath 04/09/19 13:45 04/14/19 13:44 04/10/19 02:33 Amlodipine Besylate (Norvasc) 10 mg DAILY ORAL 04/05/19 09:00 05/05/19 08:59 04/10/19 08:40 Cephalexin (Keflex) 500 mg FOUR TIMES A DAY ORAL 04/10/19 18:00 04/17/19 17:59 04/10/19 17:05 Chlorhexidine Gluconate (Autumn-Hex 2%) 1 applic DAILY@2000 TOPIC 04/05/19 20:00 05/05/19 19:59 04/09/19 22:35 Clonazepam (KlonoPIN) 0.5 mg DAILYPRN PRN ORAL For Anxiety 04/04/19 13:45 04/11/19 13:44 Clonidine HCl (Catapres Tab) 0.1 mg Q4H PRN ORAL sbp more than 160 04/04/19 13:00 05/04/19 12:59 04/08/19 17:12 Clonidine HCl (Catapres Tab) 0.1 mg QHS ORAL 04/05/19 21:00 05/05/19 20:59 04/09/19 22:35 Dextrose (Dextrose 50%) 25 ml Q30M PRN IV Hypoglycemia 04/04/19 13:00 05/04/19 12:59 Dextrose (Dextrose 50%) 50 ml Q30M PRN IV Hypoglycemia 04/04/19 13:00 05/04/19 12:59 Diphenhydramine HCl (Benadryl) 25 mg Q6H PRN ORAL Itching/Pruritis 04/04/19 12:45 05/04/19 12:44 04/10/19 17:05 Heparin Sodium (Porcine) (Heparin 5000 units/ml) 5,000 units EVERY 12 HOURS SUBQ 04/04/19 21:00 05/04/19 20:59 04/10/19 08:47 Insulin Aspart (NovoLOG) BEFORE MEALS AND HS SUBQ 04/04/19 16:30 05/04/19 16:29 04/09/19 17:09 Losartan Potassium (Cozaar) 50 mg DAILY ORAL 04/05/19 09:00 05/05/19 08:59 04/10/19 08:39 Metformin HCl (Glucophage) 500 mg TWICE A DAY ORAL 04/04/19 18:00 05/04/19 17:59 04/10/19 17:05 Morphine Sulfate (Morphine Sulfate) 2 mg Q4H PRN IVP severe pain 7-10 04/04/19 13:00 04/11/19 12:59 04/07/19 21:28 Nitroglycerin (Ntg) 0.4 mg Q5M X 3 DOSES PRN SL Prn Chest Pain 04/04/19 13:00 05/04/19 12:59 Ondansetron HCl (Zofran) 4 mg Q6H PRN IVP Nausea & Vomiting 04/04/19 13:00 05/04/19 12:59 Oxycodone/ Acetaminophen (Percocet 10/325) 1 tab Q4H PRN ORAL pain 4-7 04/04/19 13:00 04/11/19 12:59 04/10/19 17:08 Pantoprazole (Protonix) 40 mg DAILY ORAL 04/05/19 09:00 05/05/19 08:59 04/10/19 08:40 Polyethylene Glycol (Miralax) 17 gm HSPRN PRN ORAL Constipation 04/04/19 13:00 05/04/19 12:59 Temazepam (Restoril) 15 mg HSPRN PRN ORAL Insomnia 04/04/19 13:00 04/11/19 12:59 Allergies: Coded Allergies: SULFA (SULFONAMIDE ANTIBIOTICS) (Verified Allergy, Mild, hives, 04/06/19) ROS Limited/Unobtainable: No Constitutional: Reports: no symptoms HEENT: Reports: no symptoms Cardiovascular: Reports: no symptoms Respiratory: Reports: no symptoms Gastrointestinal/Abdominal: Reports: no symptoms Genitourinary: Reports: no symptoms Neurologic/Psychiatric: Reports: no symptoms Subjective 68 YO F admitted with bilateral heel pain. Now left diabetic foot ulcer. Cover for Int Ivan-Dr Sue Objective Last Vital Signs Date Time Temp Pulse Resp B/P (MAP) Pulse Ox O2 Delivery O2 Flow Rate FiO2 04/10/19 16:00 98.2 76 20 152/76 (101) 99 04/10/19 11:47 Room Air 21 Laboratory Tests Test 04/10/19 05:20 White Blood Count 8.5 K/UL (4.8-10.8) Red Blood Count 3.61 M/UL (4.20-5.40) L Hemoglobin 9.2 G/DL (12.0-16.0) L Hematocrit 29.1 % (37.0-47.0) L Mean Corpuscular Volume 81 FL (80-99) Mean Corpuscular Hemoglobin 25.4 PG (27.0-31.0) L Mean Corpuscular Hemoglobin Concent 31.5 G/DL (32.0-36.0) L Red Cell Distribution Width 13.9 % (11.6-14.8) Platelet Count 240 K/UL (150-450) Mean Platelet Volume 6.2 FL (6.5-10.1) L Neutrophils (%) (Auto) 69.4 % (45.0-75.0) Lymphocytes (%) (Auto) 23.0 % (20.0-45.0) Monocytes (%) (Auto) 5.1 % (1.0-10.0) Eosinophils (%) (Auto) 2.0 % (0.0-3.0) Basophils (%) (Auto) 0.6 % (0.0-2.0) Erythrocyte Sedimentation Rate 58 MM/HR (0-30) H Sodium Level 142 MMOL/L (136-145) Potassium Level 3.9 MMOL/L (3.5-5.1) Chloride Level 105 MMOL/L (98-107) Carbon Dioxide Level 30 MMOL/L (21-32) Anion Gap 7 mmol/L (5-15) Blood Urea Nitrogen 17 mg/dL (7-18) Creatinine 0.9 MG/DL (0.55-1.30) Estimat Glomerular Filtration Rate > 60 mL/min (>60) Glucose Level 93 MG/DL (74-106) Calcium Level 9.0 MG/DL (8.5-10.1) Phosphorus Level 3.2 MG/DL (2.5-4.9) Magnesium Level 1.3 MG/DL (1.8-2.4) L Total Bilirubin 0.2 MG/DL (0.2-1.0) Aspartate Amino Transf (AST/SGOT) 29 U/L (15-37) Alanine Aminotransferase (ALT/SGPT) 22 U/L (12-78) Alkaline Phosphatase 53 U/L (46-116) C-Reactive Protein, Quantitative 2.4 mg/dL (0.00-0.90) H Total Protein 6.5 G/DL (6.4-8.2) Albumin 2.5 G/DL (3.4-5.0) L Globulin 4.0 g/dL Albumin/Globulin Ratio 0.6 (1.0-2.7) L Intake and Output 04/09/19 04/10/19 19:00 07:00 Intake Total 1495 ml Output Total 1200 ml 400 ml Balance 295 ml -400 ml Intake Oral 1440 ml IV Total 55 ml Output Urine Total 1200 ml 400 ml # Voids 2 # Bowel Movements 1 Objective PHYSICAL EXAMINATION: GENERAL: The patient is well-developed and well-nourished obese female, in no apparent distress. HEENT: Eyes, pupils are equal and responsive to light and accommodation. Extraocular movements are intact. NECK: Supple without lymphadenopathy. CHEST: Lungs are clear to auscultation bilaterally without wheezes or rales. CARDIOVASCULAR: Regular rate. S1 and S2 normal without murmurs, rubs, or gallops. ABDOMEN: Soft, nontender, nondistended. Positive bowel sounds. No evidence of hepatosplenomegaly. Currently, no rebound or guarding noted. EXTREMITIES: Negative for clubbing, cyanosis, or edema. RECTAL/GENITAL: Not performed. NEUROLOGIC: Cranial nerves II through XII are grossly intact without focal deficits. Motor strength is 5/5 bilaterally. Deep tendon reflexes are 2+ plantar. Assessment/Plan Assessment/Plan ASSESSMENT: This is a 68-year-old female. 1. Diabetic left heel ulcer. 2. Diabetes type 2. 3. Hypertension. 4. Cellulitis left leg TREATMENT: 1. Left diabetic foot ulcer. A Podiatry consultation has been obtained with Dr. Hoyt. We will follow recommendations of Podiatry. An MRI of bilateral feet does not indicate acute osteomyelitis. ABX=oral keflex per ID=Dr Rod 2. Diabetes type 2. NovoLog sliding scale has been instituted. 3. Hypertension. The patient has been started empirically on lisinopril. 4. Discharge planning: [facility] Milan Limon MD Apr 10, 2019 17:20
--- NOTE | 2019-04-10 19:13 | NUR ---
HAND-OFF: Report given to CATA Parra.
--- NOTE | 2019-04-10 19:15 | NUR ---
NURSE NOTES: Patient is resting in bed and alert x4. On room air with no signs of SOB or distress. KAN PICC line in place. Bed locked and in lowest position. HOB elevated. Bilat foot dressing dry and intact. Call light in reach. Will continue to monitor the patient.
[2019-04-10 19:55] VITALS: BP 181/76
[2019-04-10] MEDS: Dyna-Hex 2% Top Sol 2oz TOPIC SCH (20:00)
[2019-04-11] VITALS: BP 150/66
[2019-04-11 04:00] VITALS: BP 148/76
[2019-04-11] MEDS: NovoLOG Insulin Flexpen SUBQ SCH ×4 (05:11→20:32)
--- NOTE | 2019-04-11 06:50 | General Progress Note ---
Assessment/Plan Problem List: (1) Diabetic foot ulcer associated with type 2 diabetes mellitus ICD Codes: E11.621 - Type 2 diabetes mellitus with foot ulcer; L97.509 - Non- pressure chronic ulcer of other part of unspecified foot with unspecified severity SNOMED: 571003690, 7636768762099 (2) Severe anemia ICD Codes: D64.9 - Anemia, unspecified SNOMED: 085475439 (3) Morbid obesity with BMI of 40.0-44.9, adult ICD Codes: E66.01 - Morbid (severe) obesity due to excess calories; Z68.41 - Body mass index (BMI) 40.0-44.9, adult SNOMED: 286527868, 284198436, [id number] Assessment/Plan: continue with Metformin 500 mg bid continue NISS ac / hs Subjective Allergies: Coded Allergies: SULFA (SULFONAMIDE ANTIBIOTICS) (Verified Allergy, Mild, hives, 04/06/19) Subjective events noted fair glycemic control Item Value Date Time Bedside Blood Glucose 112 mg/dl 04/11/19 0511 Bedside Blood Glucose 106 mg/dl 04/10/19 2047 Bedside Blood Glucose 106 mg/dl 04/10/19 1630 Bedside Blood Glucose 84 mg/dl 04/10/19 1130 Bedside Blood Glucose 97 mg/dl 04/10/19 0520 Objective Last 24 Hour Vital Signs Date Time Temp Pulse Resp B/P (MAP) Pulse Ox O2 Delivery O2 Flow Rate FiO2 04/11/19 04:00 97.7 69 19 148/76 (100) 96 04/11/19 00:00 98.4 73 19 150/66 (94) 98 04/10/19 20:38 181/76 04/10/19 20:09 95 20 95 Room Air 21 04/10/19 20:05 Room Air 04/10/19 19:55 98.4 79 20 181/76 (111) 97 04/10/19 16:00 98.2 76 20 152/76 (101) 99 04/10/19 12:00 97.9 73 19 138/66 (90) 98 04/10/19 11:47 76 20 98 Room Air 21 04/10/19 09:00 Room Air 04/10/19 08:40 90 144/79 04/10/19 08:39 144/79 04/10/19 08:00 98.7 90 18 144/79 (100) 97 Intake and Output 04/10/19 04/11/19 19:00 07:00 Intake Total 1010 ml Output Total 800 ml 750 ml Balance 210 ml -750 ml Intake Oral 1010 ml Output Urine Total 800 ml 750 ml # Voids 2 Height (Feet): 5 Height (Inches): 7.00 Weight (Pounds): 279 General Appearance: no apparent distress Neck: normal alignment Cardiovascular: normal rate Respiratory/Chest: lungs clear Abdomen: normal bowel sounds Objective Current Medications Medications (Trade) Dose Ordered Sig/Isak Route PRN Reason Start Time Stop Time Status Last Admin Dose Admin Acetaminophen (Tylenol) 650 mg Q4H PRN ORAL Mild Pain (Pain Scale 1-3) 04/04/19 12:45 05/04/19 12:44 Acetaminophen (Tylenol) 650 mg Q4H PRN ORAL fever 04/04/19 13:00 05/04/19 12:59 Albuterol/ Ipratropium (Albuterol/ Ipratropium) 3 ml Q4H PRN HHN Shortness of Breath 04/09/19 13:45 04/14/19 13:44 04/10/19 02:33 Amlodipine Besylate (Norvasc) 10 mg DAILY ORAL 04/05/19 09:00 05/05/19 08:59 04/10/19 08:40 Cephalexin (Keflex) 500 mg FOUR TIMES A DAY ORAL 04/10/19 18:00 04/17/19 17:59 04/10/19 20:38 Chlorhexidine Gluconate (Autumn-Hex 2%) 1 applic DAILY@1999 TOPIC 04/05/19 20:00 05/05/19 19:59 04/09/19 22:35 Clonazepam (KlonoPIN) 0.5 mg DAILYPRN PRN ORAL For Anxiety 04/04/19 13:45 04/11/19 13:44 Clonidine HCl (Catapres Tab) 0.1 mg Q4H PRN ORAL sbp more than 160 04/04/19 13:00 05/04/19 12:59 04/08/19 17:12 Clonidine HCl (Catapres Tab) 0.1 mg QHS ORAL 04/05/19 21:00 05/05/19 20:59 04/10/19 20:38 Dextrose (Dextrose 50%) 25 ml Q30M PRN IV Hypoglycemia 04/04/19 13:00 05/04/19 12:59 Dextrose (Dextrose 50%) 50 ml Q30M PRN IV Hypoglycemia 04/04/19 13:00 05/04/19 12:59 Diphenhydramine HCl (Benadryl) 25 mg Q6H PRN ORAL Itching/Pruritis 04/04/19 12:45 05/04/19 12:44 04/10/19 17:05 Heparin Sodium (Porcine) (Heparin 5000 units/ml) 5,000 units EVERY 12 HOURS SUBQ 04/04/19 21:00 05/04/19 20:59 04/10/19 20:47 Insulin Aspart (NovoLOG) BEFORE MEALS AND HS SUBQ 04/04/19 16:30 05/04/19 16:29 04/09/19 17:09 Losartan Potassium (Cozaar) 50 mg DAILY ORAL 04/05/19 09:00 05/05/19 08:59 04/10/19 08:39 Metformin HCl (Glucophage) 500 mg TWICE A DAY ORAL 04/04/19 18:00 05/04/19 17:59 04/10/19 17:05 Morphine Sulfate (Morphine Sulfate) 2 mg Q4H PRN IVP severe pain 7-10 04/04/19 13:00 04/11/19 12:59 04/07/19 21:28 Nitroglycerin (Ntg) 0.4 mg Q5M X 3 DOSES PRN SL Prn Chest Pain 04/04/19 13:00 05/04/19 12:59 Ondansetron HCl (Zofran) 4 mg Q6H PRN IVP Nausea & Vomiting 04/04/19 13:00 05/04/19 12:59 Oxycodone/ Acetaminophen (Percocet 10/325) 1 tab Q4H PRN ORAL pain 4-7 04/04/19 13:00 04/11/19 12:59 04/10/19 17:08 Pantoprazole (Protonix) 40 mg DAILY ORAL 04/05/19 09:00 05/05/19 08:59 04/10/19 08:40 Polyethylene Glycol (Miralax) 17 gm HSPRN PRN ORAL Constipation 04/04/19 13:00 05/04/19 12:59 Temazepam (Restoril) 15 mg HSPRN PRN ORAL Insomnia 04/04/19 13:00 04/11/19 12:59 Josesito Ovalle MD Apr 11, 2019 06:50
--- NOTE | 2019-04-11 07:34 | NUR ---
HAND-OFF: Report given to CATA Hemphill.
--- NOTE | 2019-04-11 07:34 | NUR ---
NURSE NOTES: HANDOFF RECEIVED FROM CATA GIBSON. PATIENT RECEIVED SLEEPING IN BED, NO ACUTE SIGNS OF DISTRESS NOTED. PATIENT HAS RIGHT UPPER ARM PICC LINE, SALINE LOCKED. BED IN THE LOW AND LOCKED POSITION WITH CALL LIGHT WITHIN REACH, WILL CONTINUE TO MONITOR.
[2019-04-11 08:00] VITALS: BP 180/83
[2019-04-11] MEDS: metFORMIN 500mg tab ORAL SCH ×2 (09:25→17:43)
[2019-04-11] MEDS: Losartan 50mg tab ORAL SCH (09:25)
[2019-04-11] MEDS: Cephalexin 500mg cap ORAL SCH ×2 (09:25→12:25)
[2019-04-11] MEDS: Heparin 5000 units/ml inj SUBQ SCH ×2 (09:27→20:19)
--- NOTE | 2019-04-11 10:49 | NUR ---
HAND-OFF: Report given to CATA GROSS.
--- NOTE | 2019-04-11 10:54 | NUR ---
NURSE NOTES: Received patient from [facility]. No SOB or acute distress. PICC line intact. Wound dressings intact. HOB elevated. Bed locked in lowest position. Call light within reach. Will continue plan of care.
[2019-04-11 12:00] VITALS: BP 174/79
--- NOTE | 2019-04-11 12:04 | Infectious Diseases Prog Note ---
Assessment/Plan Assessment/Plan Assessment: B/l heel ulcerations and pain; L heel and leg cellulitis; improving -L ankle MRI: Superficial skin erosion in the region of MRI marker responding to stated clinical history of heel ulcer. Faint slightly increased STIR signal in the calcaneal tuberosity, without associated T1 abnormality. Most likely reactive, although very early osteomyelitis cannot be completely ruled out. Faint slightly increased her signal in the talus, likewise without associated T1 abnormality. Most likely reactive, but early osteomyelitis cannot be completely ruled out. Extensive edema of the subcutaneous fat, as described. Given stated clinical history, may be on the basis of cellulitis, but could also indicate edema of vasogenic/hemodynamic origin. Correlate with clinical findings -R foot MRI: No evidence of osteomyelitis demonstrated. Diffuse edema of the subcutaneous fat, may indicate cellulitis or edema due to hemodynamic causes. No focal fluid collection to suggest abscess -R foot xray: no acute fracture -L foot xray: Soft tissue swelling. No acute injury identified. Osteoarthritis -ESR 56,CRP 4.0 Afebrile No leukocytosis Dm2 HTN Plan: -Continue PO keflex #2 (abx d #12/09) for cellulitis -04/10 SP IV Ancef #5 -04/06 SP IV Vancomycin, ZOsyn #3 -f/u cx -Monitor CBC/CMP, temperatures -Consider gabapentin or Lyrica for peripheral neuropathy Thank you for this consultation. Will continue to follow along with you. Discussed with RN. Subjective Allergies: Coded Allergies: SULFA (SULFONAMIDE ANTIBIOTICS) (Verified Allergy, Mild, hives, 04/06/19) Subjective afebrile no leukocytosis discharge planing Objective Vital Signs Last 24 Hour Vital Signs Date Time Temp Pulse Resp B/P (MAP) Pulse Ox O2 Delivery O2 Flow Rate FiO2 04/11/19 09:33 87 18 96 Room Air 21 04/11/19 09:25 76 180/83 04/11/19 09:25 180/83 04/11/19 08:00 96.8 76 20 180/83 (115) 97 04/11/19 06:49 Room Air 04/11/19 04:00 97.7 69 19 148/76 (100) 96 04/11/19 00:00 98.4 73 19 150/66 (94) 98 04/10/19 20:38 181/76 04/10/19 20:09 95 20 95 Room Air 21 04/10/19 20:05 Room Air 04/10/19 19:55 98.4 79 20 181/76 (111) 97 04/10/19 16:00 98.2 76 20 152/76 (101) 99 Height (Feet): 5 Height (Inches): 7.00 Weight (Pounds): 279 Objective GENERAL: The patient is well-developed and well-nourished obese female, in no apparent distress. HEENT: Eyes, pupils are equal and responsive to light and accommodation. Extraocular movements are intact. NECK: Supple without lymphadenopathy. CHEST: Lungs are clear to auscultation bilaterally without wheezes or rales. CARDIOVASCULAR: Regular rate. S1 and S2 normal without murmurs, rubs, or gallops. ABDOMEN: Soft, nontender, nondistended. Positive bowel sounds. No evidence of hepatosplenomegaly. Currently, no rebound or guarding noted. EXTREMITIES: Negative for clubbing, cyanosis, or edema. Current Medications Medications (Trade) Dose Ordered Sig/Isak Route PRN Reason Start Time Stop Time Status Last Admin Dose Admin Acetaminophen (Tylenol) 650 mg Q4H PRN ORAL Mild Pain (Pain Scale 1-3) 04/04/19 12:45 05/04/19 12:44 Acetaminophen (Tylenol) 650 mg Q4H PRN ORAL fever 04/04/19 13:00 05/04/19 12:59 Albuterol/ Ipratropium (Albuterol/ Ipratropium) 3 ml Q4H PRN HHN Shortness of Breath 04/09/19 13:45 04/14/19 13:44 04/10/19 02:33 Amlodipine Besylate (Norvasc) 10 mg DAILY ORAL 04/05/19 09:00 05/05/19 08:59 04/11/19 09:25 Cephalexin (Keflex) 500 mg FOUR TIMES A DAY ORAL 04/10/19 18:00 04/17/19 17:59 04/11/19 09:25 Chlorhexidine Gluconate (Autumn-Hex 2%) 1 applic DAILY@2000 TOPIC 04/05/19 20:00 05/05/19 19:59 04/09/19 22:35 Clonazepam (KlonoPIN) 0.5 mg DAILYPRN PRN ORAL For Anxiety 04/04/19 13:45 04/11/19 13:44 Clonidine HCl (Catapres Tab) 0.1 mg Q4H PRN ORAL sbp more than 160 04/04/19 13:00 05/04/19 12:59 04/08/19 17:12 Clonidine HCl (Catapres Tab) 0.1 mg QHS ORAL 04/05/19 21:00 05/05/19 20:59 04/10/19 20:38 Dextrose (Dextrose 50%) 25 ml Q30M PRN IV Hypoglycemia 04/04/19 13:00 05/04/19 12:59 Dextrose (Dextrose 50%) 50 ml Q30M PRN IV Hypoglycemia 04/04/19 13:00 05/04/19 12:59 Diphenhydramine HCl (Benadryl) 25 mg Q6H PRN ORAL Itching/Pruritis 04/04/19 12:45 05/04/19 12:44 04/10/19 17:05 Heparin Sodium (Porcine) (Heparin 5000 units/ml) 5,000 units EVERY 12 HOURS SUBQ 04/04/19 21:00 05/04/19 20:59 04/11/19 09:27 Insulin Aspart (NovoLOG) BEFORE MEALS AND HS SUBQ 04/04/19 16:30 05/04/19 16:29 04/09/19 17:09 Losartan Potassium (Cozaar) 50 mg DAILY ORAL 04/05/19 09:00 05/05/19 08:59 04/11/19 09:25 Metformin HCl (Glucophage) 500 mg TWICE A DAY ORAL 04/04/19 18:00 05/04/19 17:59 04/11/19 09:25 Morphine Sulfate (Morphine Sulfate) 2 mg Q4H PRN IVP severe pain 7-10 04/04/19 13:00 04/11/19 12:59 04/07/19 21:28 Nitroglycerin (Ntg) 0.4 mg Q5M X 3 DOSES PRN SL Prn Chest Pain 04/04/19 13:00 05/04/19 12:59 Ondansetron HCl (Zofran) 4 mg Q6H PRN IVP Nausea & Vomiting 04/04/19 13:00 05/04/19 12:59 Oxycodone/ Acetaminophen (Percocet 10/325) 1 tab Q4H PRN ORAL pain 4-7 04/04/19 13:00 04/11/19 12:59 04/10/19 17:08 Pantoprazole (Protonix) 40 mg DAILY ORAL 04/05/19 09:00 05/05/19 08:59 04/11/19 09:25 Polyethylene Glycol (Miralax) 17 gm HSPRN PRN ORAL Constipation 04/04/19 13:00 05/04/19 12:59 Temazepam (Restoril) 15 mg HSPRN PRN ORAL Insomnia 04/04/19 13:00 04/11/19 12:59 Natalie Rod M.D. Apr 11, 2019 12:04
--- NOTE | 2019-04-11 12:22 | Internal Med Progress Note ---
Subjective Date of Service: Apr 11, 2019 Physician Name Milan Limon Attending Physician Clarence Sue MD Current Medications Medications (Trade) Dose Ordered Sig/Isak Route PRN Reason Start Time Stop Time Status Last Admin Dose Admin Acetaminophen (Tylenol) 650 mg Q4H PRN ORAL Mild Pain (Pain Scale 1-3) 04/04/19 12:45 05/04/19 12:44 Acetaminophen (Tylenol) 650 mg Q4H PRN ORAL fever 04/04/19 13:00 05/04/19 12:59 Albuterol/ Ipratropium (Albuterol/ Ipratropium) 3 ml Q4H PRN HHN Shortness of Breath 04/09/19 13:45 04/14/19 13:44 04/10/19 02:33 Amlodipine Besylate (Norvasc) 10 mg DAILY ORAL 04/05/19 09:00 05/05/19 08:59 04/11/19 09:25 Cephalexin (Keflex) 500 mg FOUR TIMES A DAY ORAL 04/10/19 18:00 04/17/19 17:59 04/11/19 09:25 Chlorhexidine Gluconate (Autumn-Hex 2%) 1 applic DAILY@2000 TOPIC 04/05/19 20:00 05/05/19 19:59 04/09/19 22:35 Clonazepam (KlonoPIN) 0.5 mg DAILYPRN PRN ORAL For Anxiety 04/04/19 13:45 04/11/19 13:44 Clonidine HCl (Catapres Tab) 0.1 mg Q4H PRN ORAL sbp more than 160 04/04/19 13:00 05/04/19 12:59 04/08/19 17:12 Clonidine HCl (Catapres Tab) 0.1 mg QHS ORAL 04/05/19 21:00 05/05/19 20:59 04/10/19 20:38 Dextrose (Dextrose 50%) 25 ml Q30M PRN IV Hypoglycemia 04/04/19 13:00 05/04/19 12:59 Dextrose (Dextrose 50%) 50 ml Q30M PRN IV Hypoglycemia 04/04/19 13:00 05/04/19 12:59 Diphenhydramine HCl (Benadryl) 25 mg Q6H PRN ORAL Itching/Pruritis 04/04/19 12:45 05/04/19 12:44 04/10/19 17:05 Heparin Sodium (Porcine) (Heparin 5000 units/ml) 5,000 units EVERY 12 HOURS SUBQ 04/04/19 21:00 05/04/19 20:59 04/11/19 09:27 Insulin Aspart (NovoLOG) BEFORE MEALS AND HS SUBQ 04/04/19 16:30 05/04/19 16:29 04/09/19 17:09 Losartan Potassium (Cozaar) 50 mg DAILY ORAL 04/05/19 09:00 05/05/19 08:59 04/11/19 09:25 Metformin HCl (Glucophage) 500 mg TWICE A DAY ORAL 04/04/19 18:00 05/04/19 17:59 04/11/19 09:25 Morphine Sulfate (Morphine Sulfate) 2 mg Q4H PRN IVP severe pain 7-10 04/04/19 13:00 04/11/19 12:59 04/07/19 21:28 Nitroglycerin (Ntg) 0.4 mg Q5M X 3 DOSES PRN SL Prn Chest Pain 04/04/19 13:00 05/04/19 12:59 Ondansetron HCl (Zofran) 4 mg Q6H PRN IVP Nausea & Vomiting 04/04/19 13:00 05/04/19 12:59 Oxycodone/ Acetaminophen (Percocet 10/325) 1 tab Q4H PRN ORAL pain 4-7 04/04/19 13:00 04/11/19 12:59 04/10/19 17:08 Pantoprazole (Protonix) 40 mg DAILY ORAL 04/05/19 09:00 05/05/19 08:59 04/11/19 09:25 Polyethylene Glycol (Miralax) 17 gm HSPRN PRN ORAL Constipation 04/04/19 13:00 05/04/19 12:59 Temazepam (Restoril) 15 mg HSPRN PRN ORAL Insomnia 04/04/19 13:00 04/11/19 12:59 Allergies: Coded Allergies: SULFA (SULFONAMIDE ANTIBIOTICS) (Verified Allergy, Mild, hives, 04/06/19) ROS Limited/Unobtainable: No Constitutional: Reports: no symptoms HEENT: Reports: no symptoms Cardiovascular: Reports: no symptoms Respiratory: Reports: no symptoms Gastrointestinal/Abdominal: Reports: no symptoms Genitourinary: Reports: no symptoms Neurologic/Psychiatric: Reports: no symptoms Subjective 68 YO F admitted with bilateral heel pain. Now left diabetic foot ulcer. Cover for Int Med-Dr Sue Objective Last Vital Signs Date Time Temp Pulse Resp B/P (MAP) Pulse Ox O2 Delivery O2 Flow Rate FiO2 04/11/19 09:33 87 18 96 Room Air 21 04/11/19 09:25 180/83 04/11/19 08:00 96.8 Intake and Output 04/10/19 04/11/19 18:59 06:59 Intake Total 1010 ml Output Total 800 ml 750 ml Balance 210 ml -750 ml Intake Oral 1010 ml Output Urine Total 800 ml 750 ml # Voids 2 Objective PHYSICAL EXAMINATION: GENERAL: The patient is well-developed and well-nourished obese female, in no apparent distress. HEENT: Eyes, pupils are equal and responsive to light and accommodation. Extraocular movements are intact. NECK: Supple without lymphadenopathy. CHEST: Lungs are clear to auscultation bilaterally without wheezes or rales. CARDIOVASCULAR: Regular rate. S1 and S2 normal without murmurs, rubs, or gallops. ABDOMEN: Soft, nontender, nondistended. Positive bowel sounds. No evidence of hepatosplenomegaly. Currently, no rebound or guarding noted. EXTREMITIES: Negative for clubbing, cyanosis, or edema. RECTAL/GENITAL: Not performed. NEUROLOGIC: Cranial nerves II through XII are grossly intact without focal deficits. Motor strength is 5/5 bilaterally. Deep tendon reflexes are 2+ plantar. Assessment/Plan Assessment/Plan ASSESSMENT: This is a 68-year-old female. 1. Diabetic left heel ulcer. 2. Diabetes type 2. 3. Hypertension. 4. Cellulitis left leg TREATMENT: 1. Left diabetic foot ulcer. A Podiatry consultation has been obtained with Dr. Hoyt. We will follow recommendations of Podiatry. An MRI of bilateral feet does not indicate acute osteomyelitis. ABX=oral keflex per ID=Dr Rod 2. Diabetes type 2. NovoLog sliding scale has been instituted. 3. Hypertension. The patient has been started empirically on lisinopril. 4. Discharge planning: Patient discharged to [facility]04/10/19. Patient still here for unknown reasons Milan Limon MD Apr 11, 2019 12:22
--- NOTE | 2019-04-11 12:28 | Pulmonology Progress Note ---
Assessment/Plan Problems: (1) Diabetic foot ulcer (2) Elephantiasis (3) Severe anemia (4) Diabetes mellitus (5) Morbid obesity with BMI of 40.0-44.9, adult (6) Cellulitis Assessment/Plan doing better no new events iv abx, ID following , all MRI's are negative sliding scale diabetic diet continue Keflex for 8 more days pt wants to go to a rehab facility Subjective ROS Limited/Unobtainable: No Constitutional: Reports: no symptoms HEENT: Repors: no symptoms Respiratory: Reports: no symptoms Allergies: Coded Allergies: SULFA (SULFONAMIDE ANTIBIOTICS) (Verified Allergy, Mild, hives, 04/06/19) Objective Last 24 Hour Vital Signs Date Time Temp Pulse Resp B/P (MAP) Pulse Ox O2 Delivery O2 Flow Rate FiO2 04/11/19 09:33 87 18 96 Room Air 21 04/11/19 09:25 76 180/83 04/11/19 09:25 180/83 04/11/19 08:00 96.8 76 20 180/83 (115) 97 04/11/19 06:49 Room Air 04/11/19 04:00 97.7 69 19 148/76 (100) 96 04/11/19 00:00 98.4 73 19 150/66 (94) 98 04/10/19 20:38 181/76 04/10/19 20:09 95 20 95 Room Air 21 04/10/19 20:05 Room Air 04/10/19 19:55 98.4 79 20 181/76 (111) 97 04/10/19 16:00 98.2 76 20 152/76 (101) 99 Intake and Output 04/10/19 04/11/19 18:59 06:59 Intake Total 1010 ml Output Total 800 ml 750 ml Balance 210 ml -750 ml Intake Oral 1010 ml Output Urine Total 800 ml 750 ml # Voids 2 Objective General Appearance: WD/WN, no apparent distress Lines, tubes and drains: peripheral HEENT: normocephalic, atraumatic Neck: non-tender, normal alignment Respiratory/Chest: chest wall non-tender, lungs clear Breasts: no masses Cardiovascular/Chest: normal peripheral pulses Abdomen: non tender Extremities: normal range of motion Skin Exam: normal pigmentation Current Medications Medications (Trade) Dose Ordered Sig/Isak Route PRN Reason Start Time Stop Time Status Last Admin Dose Admin Acetaminophen (Tylenol) 650 mg Q4H PRN ORAL Mild Pain (Pain Scale 1-3) 04/04/19 12:45 05/04/19 12:44 Acetaminophen (Tylenol) 650 mg Q4H PRN ORAL fever 04/04/19 13:00 05/04/19 12:59 Albuterol/ Ipratropium (Albuterol/ Ipratropium) 3 ml Q4H PRN HHN Shortness of Breath 04/09/19 13:45 04/14/19 13:44 04/10/19 02:33 Amlodipine Besylate (Norvasc) 10 mg DAILY ORAL 04/05/19 09:00 05/05/19 08:59 04/11/19 09:25 Cephalexin (Keflex) 500 mg FOUR TIMES A DAY ORAL 04/10/19 18:00 04/17/19 17:59 04/11/19 12:25 Chlorhexidine Gluconate (Autumn-Hex 2%) 1 applic DAILY@2000 TOPIC 04/05/19 20:00 05/05/19 19:59 04/09/19 22:35 Clonazepam (KlonoPIN) 0.5 mg DAILYPRN PRN ORAL For Anxiety 04/04/19 13:45 04/11/19 13:44 Clonidine HCl (Catapres Tab) 0.1 mg Q4H PRN ORAL sbp more than 160 04/04/19 13:00 05/04/19 12:59 04/08/19 17:12 Clonidine HCl (Catapres Tab) 0.1 mg QHS ORAL 04/05/19 21:00 05/05/19 20:59 04/10/19 20:38 Dextrose (Dextrose 50%) 25 ml Q30M PRN IV Hypoglycemia 04/04/19 13:00 05/04/19 12:59 Dextrose (Dextrose 50%) 50 ml Q30M PRN IV Hypoglycemia 04/04/19 13:00 05/04/19 12:59 Diphenhydramine HCl (Benadryl) 25 mg Q6H PRN ORAL Itching/Pruritis 04/04/19 12:45 05/04/19 12:44 04/10/19 17:05 Heparin Sodium (Porcine) (Heparin 5000 units/ml) 5,000 units EVERY 12 HOURS SUBQ 04/04/19 21:00 05/04/19 20:59 04/11/19 09:27 Insulin Aspart (NovoLOG) BEFORE MEALS AND HS SUBQ 04/04/19 16:30 05/04/19 16:29 04/09/19 17:09 Losartan Potassium (Cozaar) 50 mg DAILY ORAL 04/05/19 09:00 05/05/19 08:59 04/11/19 09:25 Metformin HCl (Glucophage) 500 mg TWICE A DAY ORAL 04/04/19 18:00 05/04/19 17:59 04/11/19 09:25 Morphine Sulfate (Morphine Sulfate) 2 mg Q4H PRN IVP severe pain 7-10 04/04/19 13:00 04/11/19 12:59 04/07/19 21:28 Nitroglycerin (Ntg) 0.4 mg Q5M X 3 DOSES PRN SL Prn Chest Pain 04/04/19 13:00 05/04/19 12:59 Ondansetron HCl (Zofran) 4 mg Q6H PRN IVP Nausea & Vomiting 04/04/19 13:00 05/04/19 12:59 Oxycodone/ Acetaminophen (Percocet 10/325) 1 tab Q4H PRN ORAL pain 4-7 04/04/19 13:00 04/11/19 12:59 04/10/19 17:08 Pantoprazole (Protonix) 40 mg DAILY ORAL 04/05/19 09:00 05/05/19 08:59 04/11/19 09:25 Polyethylene Glycol (Miralax) 17 gm HSPRN PRN ORAL Constipation 04/04/19 13:00 05/04/19 12:59 Temazepam (Restoril) 15 mg HSPRN PRN ORAL Insomnia 04/04/19 13:00 04/11/19 12:59 Mine Olguin MD Apr 11, 2019 12:28
--- NOTE | 2019-04-11 13:32 | NUR ---
DISCHARGE PLANNING DISCHARGE ORDER NOTED Patient has been accepted to; [facility] [address] [place] [place] [address] Bed: 7B Skilled [phone] for Nurse to Nurse report [facility] ETA for transportation: 13:30
--- NOTE | 2019-04-11 15:19 | NUR ---
NURSE NOTES: Ambulance personnel at bedside, cannot transport yet due to high blood pressure. Cannot give PRN Clonidine because it is still too close to the last time it was given. Charge nurse notified Dr Sue, awaiting orders.
[2019-04-11 16:00] VITALS: BP 142/82
[2019-04-11] MEDS ORDERED: Cephalexin 500mg cap ORAL SCH (18:00)
--- NOTE | 2019-04-11 19:44 | NUR ---
NURSE NOTES: Pt received laying in bed. AaOx4, discussed awaiting transportation to rehabilitation facility. No pain or acute SOB indicated at this time. Bed in the low and locked position, side rails up and call light in reach.
[2019-04-11 20:00] VITALS: BP 157/81
[2019-04-11] MEDS: Dyna-Hex 2% Top Sol 2oz TOPIC SCH (20:00)
--- NOTE | 2019-04-11 20:00 | NUR ---
NURSE NOTES: Pt is in bed, awake and alert. Patient waiting anxiously for the ambulance to come and transfer her to [facility]. [facility] is called , new ETA [id number]. Pt is informed of the delay of ambulance arrival.
--- NOTE | 2019-04-11 21:10 | NUR ---
NURSE NOTES: Pt is discharged to [facility] in stable condition via [facility] service. Vitas stable. BP now 120/79. Pt is awake and alert. All belongings were sent with patient, pt acknowledged and verified. Discharge instructions and transfer report was given to SNF by Lizbeth RN during last shift. Discharge packet sent with patient. Wound dressing and pictures were taken during last shift. ID band was removed. Pt had no IV acces at the time of discharge.
--- NOTE | 2019-04-12 09:10 | Discharge Summary ---
Discharge Summary Discharge Summary _ DATE OF ADMISSION: 04/04/2019 DATE OF DISCHARGE: 04/11/2019 DISCHARGED BY: Dr. Sue REASON FOR ADMISSION: 68 years old female with past medical history significant for hypertension and diabetes mellitus type 2, initially presented to [facility] emergency room complaining of bilateral feet and leg pain. After initial evaluation patient was transferred to [facility] for left diabetic foot ulcer. CONSULTANTS: pulmonary/critical care Dr. Olguin network systems integrator Dr. Ovalle Hander In Dr. Saenz ID specialist Dr. Rod [facility] COURSE: Patient admitted to the hospital. Hander In consulted. Right foot x-ray revealed no acute fracture. Left foot x-ray revealed soft tissue swelling ; no acute injury. Osteoarthritis. MRI of the left ankle revealed superficial skin erosion in the region of MRI marker , corresponding to stated clinical history of heel ulcer. Most likely reactive, but early osteomyelitis cannot be completely ruled out. Extensive edema of the subcutaneous fat, probably on the basis of cellulitis, given clinical history. Right foot MRI revealed no evidence of osteomyelitis. Diffuse edema may indicate cellulitis or edema due to hemodynamic causes. Wound care provided as per oven dumper recommendation. Offloading measures to bilateral lower extremity with Prevalon boot and ABD pad at heel provided. Blood sugar was managed as per network systems integrator recommendation. Patient will continued on metformin and sliding scale of insulin as needed. Diabetic diet provided. Hemoglobin A1c 6.4. Blood sugar remained stable. Patient noted to have anemia . Hemoglobin and hematocrit were closely monitored with goal to keep hemoglobin above 7. Anemia work-up was consistent with anemia of chronic disease. Stool for occult blood was negative. CEA was within normal limits. Prior to discharge hemoglobin 9.2 , hematocrit 29.1 Infectious disease specialist followed. Urine culture revealed mixed gram-positive organisms. Patient remained afebrile, no leukocytosis. Patient was initially on IV antibiotics and then subsequently changed to oral Keflex to complete the course for treatment of cellulitis. Patient will need to continue antibiotics at the facility to complete the full course of antibiotics. Blood pressure was managed was managed with multiply antihypertensive regimen, including calcium channel tova , angiotensin receptor tova and clonidine. Pain management was addressed. Supportive care provided. GI prophylaxis provided. Bowel regimen instituted. Fall precautions were maintained . Patient was working with physical therapist . Patient subsequently was discharged to [facility] for continuation of care. FINAL DIAGNOSES: Diabetic left heel ulcer associated with type 2 diabetes mellitus Cellulitis left leg Bilateral heel ulceration Bilateral leg edema /elephantiasis Severe anemia Morbid obesity with BMI of 40.0-44.9, adult DISCHARGE MEDICATIONS: See Medication Reconciliation list. DISCHARGE INSTRUCTIONS: Patient was discharged to longterm facility . Follow-up with medical doctor at the facility I have been assigned to dictate discharge summary for this account. I was not involved in the patient's management. Shila Alarcon NP Apr 12, 2019 09:10
== END 2019-04-11 21:10 | DRG 637 ==
LOC: 4E 10:34
PROC: B548ZZA Ultrasonography of Superior Vena Cava, Guidance (ICD-10-PCS; principal; 2019-04-06)
PROC: 02HV33Z Insertion of Infusion Device into Superior Vena Cava, Percutaneous Approach (ICD-10-PCS; principal; 2019-04-06)
DX: E11.621 Type 2 diabetes mellitus with foot ulcer (principal); L89.223 Pressure ulcer of left hip, stage 3; L03.116 Cellulitis of left lower limb; Z68.41 Body mass index [BMI] 40.0-44.9, adult; I10 Essential (primary) hypertension; E66.01 Morbid (severe) obesity due to excess calories; I89.0 Lymphedema, not elsewhere classified; D64.9 Anemia, unspecified; Z79.84 Long term (current) use of oral hypoglycemic drugs
CPT/HCPCS: 36415; 36569; 71045; 76937; 77001; 80048; 80053; 80061; 81003; 82270; 82378; 82607; 82746; 82962; 83036; 83540; 83550; 83615; 83735; 84100; 84443; 85007; 85025; 85044; 85060; 85610; 85651; 85730; 86140; 87086; 94640; 94664; J1815; J7620